=== PATIENT | female | born 1940 | race Caucasian/White ===

== ENCOUNTER 2023-01-11 13:22 | Inpatient (IN) | payer OTHER, MEDICARE ==
--- OUTSIDE RECORDS SUMMARY | 2023-01-11 13:25 | XMS REPORT | Continuity of Care Document ---
:1940 [facility] t Address [address] [facility] [place] [address] Care Team Providers Name Role Phone Shayan Ruelas MD Primary Care Physician [phone] Seamus Devi MD Attending Clinician Provider, Unknown Attending Clinician Unavailable Emily Crowell MA Attending Clinician Unavailable MD SEAMUS DEVI Attending Clinician Unavailable SEAMUS DEVI Admitting Clinician Unavailable MD SEAMUS DEVI Admitting Clinician Unavailable Payers Payer Name Policy Type Policy Number Effective Date Expiration Date S ource Problems Condition Condition Condition Status Onset Resolution Last Treating Co mments Source Name Details Category Date Date Treatment Clinician Date Chest pain Chest pain Disease Active 2021-07 M ethodi 0-26 [facility] 00:00: Hospita 00 l 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 00:00: Hospita due to due to 00 l lipid rich lipid rich plaque plaque Coronary Coronary Disease Active Metho di artery artery 6-15 st disease disease 00:00: Hospita involving involving 00 l nikolai nikolai coronary coronary artery of artery of nikolai nikolai heart heart without without angina angina pectoris pectoris Carotid Carotid Disease Active Methodi artery artery 4-27 st disease disease 00:00: Hospita 00 l Essential Essential Disease Active Met hodi hypertensi hypertensi 4-27 st on on 00:00: Hospita 00 l SOB SOB Disease Active Methodi (shortness (shortness 4-27 st of breath) of breath) 00:00: Ho spita 00 l 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 00:00: Ho spita 00 l Allergies, Adverse Reactions, Alerts Allergy Allergy Status Severity Reaction(s) Onset Inactive Treating Comm ents Source Name Type Date Date Clinician Iodinate Propensi Active Palpitations Methodi d ty to 04-01 st Contrast adverse 00:00: Hospita Media reaction 00 l s to drug Shellfis Propensi Active Palpitations Methodi h ty to 12-05 st Derived adverse 00:00: Hospita reaction 00 l s to drug Iodine Propensi Active Palpitations Me thodi ty to 03-31 st adverse 00:00: Hospita reaction 00 l s to drug Valsarta Propensi Active Anaphylaxis M ethodi n ty to 03-31 adverse 00:00: Hospita reaction 00 l s to drug Family History Family Member Diagnosis Comments Start Date Stop Date Source Natural mother Colon cancer [facility] Natural mother Hyperlipidemia [facility] Natural mother Hypertension [facility] Natural sister Hyperlipidemia [facility] Social History Social Habit Start Date Stop Date Quantity Comments Source [facility] Sexual orientation [facility] Alcohol intake 2022-04-30 2022-04-30 Ex-drinker [facility] 00:00:00 00:00:00 (finding) Hospital History of Social 2022-04-30 2022-04-[address] function 00:00:00 00:00:00 Hospital Tobacco use and 2022-03-17 2022-03-17 Smokeless [facility] exposure 00:00:00 00:00:00 tobacco non-user Hospital Sex Assigned At [birth year] [facility] 00:00:00 00:00:00 Hospital Smoking Status Start Date Stop Date Source Never smoked tobacco [facility] Medications Ordered Filled Start Stop Current Ordering Indication Dosage Frequency Signature Comments Components Source Medication Medication Date Date Medication? Clinician (SIG) Name Name omeprazole 2021-07 Yes 40mg QD Take 40 mg M ethodi (PriLOSEC) by mouth st 40 MG 10:15: daily. Hospita capsule 16 l cholecalcif 2021-07 Yes 2000U QD Take 1 Met hodi silvia, capsule st vitamin D3, 10:15: (2,000 Hosp hi 50 mcg 16 Units l (2,000 total) by unit) mouth capsule daily. capsule calcium 2021-07 Yes 1{tbl} QD Take 1 Method i carbonate 0-[address] (CALCIUM 10:15: mouth Hospita 500 ORAL) 16 daily. l brimonidine 2021-07 Yes 1[drp] Q.5D Administer Methodi (ALPHAGAN 0-[address] P) 0.1 % 10:15: both eyes Hosp hi drops 16 2 (two) l times a day. bimatoprost 2021-07 Yes 1[drp] QD Administer Methodi (LUMIGAN) 0-[address] 0.01 % 10:15: both eyes Hospit a ophthalmic 16 nightly. l drops predniSONE 2021-07- No Take 60 mg Methodi (DELTASONE) 0-03 10-28 (3 tabs) st 20 mg 00:00: 04:59 the night Hospit a tablet 00 :00 before the l procedure and 60 mg (3 tabs) the morning of procedure. Please also take Benadryl 25 mg one tab and Pepcid 40 mg one Tab (over the counter) The night before the procedure and morning of the procedure. aspirin 2021- No 81mg QD Take 1 Methodi (ECOTRIN) 04-03 09-30 tablet (81 st 81 MG 09:47: 00:00 mg total) Hospit a enteric 32 :00 by mouth l coated daily. tablet rosuvastati 2021- No 20mg QD Take 1 Met hodi n (CRESTOR) - 12-30 tablet (20 s t 20 mg 00:00: 05:59 mg total) Hospit a tablet 00 :00 by mouth l every evening for 90 days. clopidogreL 2021- No 75mg QD Take 1 Met hodi (PLAVIX) 75 9-30 12-30 tablet (75 s t mg tablet 00:00: 05:59 mg total) Ho spita 00 :00 by mouth l daily for 90 days. aspirin 2021- No 81mg QD Take 1 Methodi (ECOTRIN) 9- 10-31 tablet (81 st 81 MG 00:00: 04:59 mg total) Hospit a enteric 00 :00 by mouth l coated daily for tablet 30 days. clopidogreL 75mg QD Take 1 Met hodi (PLAVIX) 75 04-03 tablet (75 s t mg tablet 00:00: 00:00 mg total) Ho spita 00 :00 by mouth l daily for 90 days. predniSONE 2021- No Take 60mg M ethodi (DELTASONE) 03-19 (3tabs) st 20 mg 00:00: 00:00 the night Hospit a tablet 00 :00 before the l procedure and 60mg (3tabs) the morning of procedure. Please take Benadryl 25 mg and Pepcid 40 mg ( Over the Counter) the night before the procedure and tne morning of procedure. clopidogreL No 75mg QD Take 1 Met hodi (PLAVIX) 75 03-17 tablet (75 s t mg tablet 00:00: 00:00 mg total) Ho spita 00 :00 by mouth l daily. lisinopriL Yes 20mg QD Take 20 mg M ethodi (PRINIVIL) 03-[address] 20 mg 00:00: every Hospita tablet 00 morning. l gabapentin Yes 900mg QD Take 3 Meth cullen (NEURONTIN) 3-[address] 300 mg 00:00: (900 mg Hospita capsule 00 total) by l mouth nightly. Symbicort Yes 2{puff} Inhale 2 M ethodi 160-4.5 3-[address] mcg/actuati 00:00: needed. Hos torrie on inhaler 00 l rosuvastati 5mg QD Take 5 mg Methodi n (CRESTOR) 09-[address] 5 mg tablet 00:00: 00:00 every Hosp hi 00 :00 evening. l Immunizations Ordered Immunization Filled Immunization Date Status Commen ts Source Name Name Equals6 COVID-19 MRNA 2020-09-04 Completed Meth odist VACCINATION 00:00:00 [facility] PFIZER COVID-19 MRNA 2020-08-14 Completed Meth odist VACCINATION 00:00:00 Hospital Vital Signs Vital Name Observation Time Observation Value Comments Source Systolic blood 2022-04-30 12:49:04 93 mm[Hg] Method ist Hospital pressure Diastolic blood 2022-04-30 12:49:04 59 mm[Hg] [facility] pressure Heart rate 2022-04-30 12:49:04 71 /min [facility] Body temperature 2022-04-30 12:49:[address] [facility] Respiratory rate 2022-04-30 12:49:04 19 /min [facility] Oxygen saturation in 2022-04-30 12:49:04 100 /min [facility] Arterial blood by Pulse oximetry Body weight 2022-04-30 10:16:40 57.97 kg [facility] BMI 2022-04-30 10:16:40 24.96 kg/m2 [facility] Body height 2022-04-29 16:30:00 152.4 cm [facility] Procedures Procedure Date / Time Performing Clinician Source Performed ECG PRE/POST OP 2022-04-29 21:54:13 Jin Munoz spital CV PCI STENT 2022-04-29 21:35:01 Seamus Devi spital ACTIVATED CLOTTING TIME 2022-04-29 21:09:00 [facility] CBC WITH PLATELET AND 2022-04-24 14:39:00 [facility] DIFFERENTIAL COMPREHENSIVE METABOLIC 2022-04-24 14:39:00 [facility] PANEL PROTHROMBIN TIME WITH INR 2022-04-24 14:39:00 DeviSeamus [facility] ECG 12-LEAD 2022-04-03 10:35:46 Seamus Devi spital CREATININE LEVEL 2022-04-02 20:30:00 [facility] ESTIMATED GFR 2022-04-02 20:30:00 Seamus Devi spital ECG PRE/POST OP 2022-04-02 15:34:04 [facility] CV PCI STENT 2022-04-02 15:28:06 Seamus Devi spital ACTIVATED CLOTTING TIME 2022-04-02 14:37:00 [facility] CBC WITH PLATELET AND 2022-03-30 14:34:00 [facility] DIFFERENTIAL COMPREHENSIVE METABOLIC 2022-03-30 14:34:[address] [facility] PANEL PT AND PTT 2022-03-30 14:34:00 Seamus Devi spital ECG 12-LEAD 2022-03-17 14:53:10 Seamus Devi spital Plan of Care Planned Activity Planned Date Details Comments Source Future Scheduled 2023-01-11 65+ [facility]04 VACCINE (1 - PCV) [code = 65+ PNEUMOCOCCAL VACCINE (1 - PCV)] Future Scheduled 2023-01-11 SHINGLES VACCINES (1 Met [facility] Test 09:52:04 of 2) [code = SHINGLES VACCINES (1 of 2)] Future Scheduled 2023-01-11 COVID-19 VACCINE (5 - [facility] Test 09:52:04 Pfizer series) [code = COVID-19 VACCINE (5 - Pfizer series)] Future Scheduled 2023-01-11 INFLUENZA VACCINE Method [facility] Test 09:52:04 [code = INFLUENZA VACCINE] Encounters Start End Encounter Admission Attending Care Care Encounter Source Date/Time Date/Time Type Type Clinicians Facility Department ID 2022-07-31 Outpatient [facility] [id number] Common 09:37:02 [id number] [facility] 2022-01-13 Outpatient [facility] [id number] Common 10:02:04 [facility] 2021-12-23 Outpatient [facility] [id number] Common 12:57:01 [facility] 2021-12-15 Outpatient [facility] [id number] Common 08:14:01 [facility] 2021-10-24 Outpatient [facility] [id number] Common 08:34:02 [facility] 2021-07-30 Outpatient [facility] [id number] Common 14:31:45 [facility] 2023-01-11 2023-01-11 Telephone Cass Devi.2.840.1 [id number] Methodi 00:00:00 00:00:[address] 3.430.2.7 Hospit a .3.753214 l .8 2022-12-07 2022-12-07 Telephone Edvi, 1.2.840.1 [id number] Methodi 00:00:00 00:00:[address] 3.430.2.7 Hospit a .3.578462 l .8 2022-04-29 2022-04-30 [facility], 1.2.840.1 [id number] Methodi 11:21:00 10:15:00 [facility] Seamus R. 09638.1.[address] 3.430.2.7 Hospit a .3.500188 l .8 2022-04-29 2022-04-30 Outpatient [facility] [id number] [place] 00:00:00 00:00:00 SEAMUS [address] 2022-04-29 2022-04-29 Surgery [facility], 1.2.840.1 [id number] Methodi 14:05:00 15:50:00 [address] 3.430.2.7 Hospit a .3.372270 l .8 2022-04-29 2022-04-29 Travel 1.2.840.1 1.2.033.450 [id number] Methodi 00:00:00 00:00:[address] 3.430.2.7 0.2.7.3.698 Ho spita .3.608579 084.8 l .8 2022-04-28 2022-04-28 Documentat Provider, 1.2.840.1 [id number] Methodi 00:00:00 00:00:00 ion Unknown 32184.1.[address] 3.430.2.7 Hospit a .3.300451 l .8 2022-04-28 2022-04-28 Travel 1.2.840.1 1.2.079.204 [id number] Methodi 00:00:00 00:00:[address] 3.430.2.7 0.2.7.3.698 Ho spita .3.687303 084.8 l .8 2022-04-06 2022-04-06 Orders [facility], 1.2.840.1 [id number] Methodi 00:00:00 00:00:00 Only Emily 65748.1.[address] 3.430.2.7 Hospit a .3.735192 l .8 2022-04-02 2022-04-03 [facility], 1.2.840.1 [id number] Methodi 07:25:00 09:47:00 Encounter Seamus Boyd [address]42.1.[address] 3.430.2.7 Hospit a .3.933812 l .8 2022-04-02 2022-04-03 [place] [id number] [place] [address] 00:00:00 00:00:00 SEAMUS [address] 2022-04-02 2022-04-02 Surgery [facility], 1.2.840.1 [id number] Methodi 09:10:00 10:55:00 Seamus Boyd [address]65.1.[address] 3.430.2.7 Hospit a .3.020557 l .8 2022-04-02 2022-04-02 Travel 1.2.840.1 1.2.706.685 0419 [id number] Methodi 00:00:00 00:00:[address] 3.430.2.7 0.2.7.3.698 Ho spita .3.911180 084.8 l .8 2022-04-01 2022-04-01 Documentat [facility], 1.2.840.1 [id number] Methodi 00:00:00 00:00:00 ion Unknown 44097.1.[address] 3.430.2.7 Hospit a .3.646517 l .8 2022-03-31 2022-03-31 Travel 1.2.840.1 1.2.340.272 [id number] [id number] Methodi 00:00:00 00:00:[address] 3.430.2.7 0.2.7.3.698 Ho spita .3.107215 084.8 l .8 2022-03-30 2022-03-30 Orders Devi, 1.2.840.1 [id number] 8070 Methodi 00:00:00 00:00:00 Only Seamus Boyd 55726.1.[address] 3.430.2.7 Hospit a .3.467412 l .8 2022-03-19 2022-03-19 Orders [facility], 1.2.840.1 [id number] [id number] Methodi 00:00:00 00:00:00 Only Emily 33682.1.[address] 3.430.2.7 Hospit a .3.120798 l .8 2022-03-17 2022-03-17 Office Devi, 1.2.840.1 [id number] Methodi 10:10:00 10:20:00 Visit Seamus Boyd 64341.1.[address] 3.430.2.7 Hospit a .3.199462 l .8 2022-03-17 2022-03-17 Outpatient [facility] [id number] [place] 00:00:00 00:00:00 SEAMUS [address] 2022-03-17 2022-03-17 Travel 1.2.840.1 1.2.065.485 [id number] Methodi 00:00:00 00:00:[address] 3.430.2.7 0.2.7.3.698 Ho spita .3.453859 084.8 l .8 2021-04-29 2021-04-29 Outpatient [facility] [id number] [place] 00:00:00 00:00:00 SEAMUS [address] 2020-12-17 2020-12-17 Outpatient [facility] [id number] [place] 00:00:00 00:00:00 SEAMUS [address] 2020-12-04 2020-12-06 Inpatient MARITO, [facility] [id number] [place] 00:00:00 00:00:00 SEAMUS [address] 2020-11-29 2020-11-29 Outpatient MARITO, [facility] [id number] [place] 00:00:00 00:00:00 SEAMUS [address] 2020-11-29 2020-11-29 Outpatient MARITO, [facility] [id number] [place] 00:00:00 00:00:00 SEAMUS [address] 2020-11-19 2020-11-19 Outpatient MARITO, [facility] [id number] [place] 00:00:00 00:00:00 SEAMUS [address] 2020-10-30 2020-10-30 Outpatient [facility] [id number] [place] 00:00:00 00:00:[address] 2020-10-29 2020-10-29 Outpatient MARITO, [facility] [id number] [place] 00:00:00 00:00:00 SEAMUS [address] Results Test Description Test Time Test Comments Results Result Comments Source ECG Pre/Post Op (in AM) 2022-04-30 02:32:53 Test Item Value Reference Range Interpretation Comme nts Ventricular rate (test code = 253) 81 Atrial rate (test code = 255) 81 MA interval (test code = 266) 160 QRSD interval (test code = 260) 90 QT interval (test code = 264) 388 QTC interval (test code = 265) 450 P axis 1 (test code = 267) 79 QRS axis 1 (test code = 268) 42 T wave axis (test code = 270) 31 EKG impression (test code = 273) Normal sinus rhythm-Normal ECG-In automated comparison with ECG of 03-APR-2022 05:35,-Vent. rate has increased BY 27 BPM-Nonspecific T wave abnormality now evident in Inferior leads- [facility] [id number] 21:14:00 Test Item Value Reference Range Interpretation Comments Activated clotting time 371 See_Comment H Oper ator Name: (test code = 5298) Traci Romero ID: [id number] [Automated mess age] The system [employer] generated this result transmitted ref erence range: 96 - 152 sec. The reference r ann-marie was not used to interpret this result as normal/abnor mal. Lab Interpretation (test Abnormal code = 74147-2) [facility] [id number] 11:09:00 Test Item Value Reference Range Interpretation Comments Glucose (test code = 120 mg/dL 70-99 H 2345-7) BUN (test code = 8 mg/dL 8-27 3094-0) Creatinine (test code 0.86 mg/dL 0.57-1.00 = 2160-0) eGFR (test code = 68 mL/min/1.73 >=59 8257) BUN/creatinine ratio 9 12-28 L (test code = 3097-3) Sodium (test code = 133 mmol/L 134-144 L 2951-2) Potassium (test code 4.1 mmol/L 3.5-5.2 = 2823-3) Chloride (test code = 95 mmol/L 96-106 L 2075-0) CO2 (test code = 24 mmol/L 20-29 8-9) Calcium (test code = 9.1 mg/dL 8.7-10.3 05998-0) Protein (test code = 6.5 g/dL 6.0-8.5 2885-2) Albumin, S (test code 4.5 g/dL 3.7-4.7 = 1751-7) Globulin, total (test 2.0 g/dL 1.5-4.5 code = 14890-8) Albumin/globulin 2.3 1.2-2.2 H ratio (test code = 1759-0) Total bilirubin (test 0.3 mg/dL 0.0-1.2 code = 1975-2) Alkaline phosphatase 75 See_Comment [Autom ated (test code = 6768-6) message ] The system which generated this result transmitted reference range : 44 - 121 IU/L. The reference range was not used to interpr et this result as normal/abnormal . AST (test code = 15 See_Comment [Automated 1920-8) message] The system which generated this result transmitted reference range : 0 - 40 IU/L. Th e reference range was not used to interpret this result as normal/abnormal . ALT (test code = 10 See_Comment [Automated 1742-6) message] The system which generated this result transmitted reference range : 0 - 32 IU/L. Th e reference range was not used to interpret this result as normal/abnormal . MARINO (test code = MARINO) Performed at: [address] [place] [id number] Director: Reji Hung MD, Phone: [phone] Lab Interpretation Abnormal (test code = 30747-2) [facility] with platelet and [id number] 11:09:00 Test Item Value Reference Range Interpretation Comments WBC (test code = 5.8 See_Comment [Automated 9290-2) message] The system which generated this result transmitted reference range : 3.4 - 10.8 x10E3/uL. The reference range was not used to interpret this result as normal/abnormal . RBC (test code = 3.29 See_Comment L [Automated 789-8) message] The system which generated this result transmitted reference range : 3.77 - 5.28 x10E6/uL. The reference range was not used to interpret this result as normal/abnormal . HGB (test code = 9.7 g/dL 11.1-15.9 L 718-7) HCT (test code = 29.4 % 34.0-46.6 L 4544-3) MCV (test code = 89 fL 79-97 787-2) MCH (test code = 29.5 pg 26.6-33.0 785-6) MCHC (test code = 33.0 g/dL 31.5-35.7 786-4) RDW (test code = 13.5 % 11.7-15.4 788-0) Platelet count (test 393 See_Comment [Autom ated code = 777-3) message] The system which generated this result transmitted reference range : 150 - 450 x10E3/uL. The reference range was not used to interpret this result as normal/abnormal . Neutrophils (test 58 % Not Estab. code = 770-8) Lymphocytes (test 27 % Not Estab. code = 736-9) Monocytes (test code 10 % Not Estab. = 5905-5) Eosinophils (test 4 % Not Estab. code = 713-8) Basophils (test code 1 % Not Estab. = 706-2) Neutrophils, absolute 3.4 See_Comment [Auto mated (test code = 751-8) message] The system which generated this result transmitted reference range : 1.4 - 7.0 x10E3/uL. The reference range was not used to interpret this result as normal/abnormal . Lymphocytes, absolute 1.5 See_Comment [Auto mated (test code = 731-0) message] The system which generated this result transmitted reference range : 0.7 - 3.1 x10E3/uL. The reference range was not used to interpret this result as normal/abnormal . Monocytes, absolute 0.6 See_Comment [Automa katerin (test code = 742-7) message] The system which generated this result transmitted reference range : 0.1 - 0.9 x10E3/uL. The reference range was not used to interpret this result as normal/abnormal . Eosinophils, absolute 0.2 See_Comment [Auto mated (test code = 711-2) message] The system which generated this result transmitted reference range : 0.0 - 0.4 x10E3/uL. The reference range was not used to interpret this result as normal/abnormal . Basophils, absolute 0.0 See_Comment [Automa katerin (test code = 704-7) message] The system which generated this result transmitted reference range : 0.0 - 0.2 x10E3/uL. The reference range was not used to interpret this result as normal/abnormal . Immature granulocytes 0 % Not Estab. (test code = 48005-4) Immature 0.0 See_Comment [Automated granulocytes, message] The absolute (test code = system which 93222-9) generated this result transmitted reference range : 0.0 - 0.1 x10E3/uL. The reference range was not used to interpret this result as normal/abnormal . MARINO (test code = MARINO) Performed at: [facility] [place], [place] [id number] Director: Reji Hung MD, Phone: [phone] Lab Interpretation Abnormal (test code = 46516-6) [facility] with [id number] 11:09:00 Test Item Value Reference Range Interpretation Comments INR (test code = 1.0 0.9-1.2 Reference i nterval 6301-6) is for non-anticoagula katerin patients.Sugges katerin INR therapeutic range for Vitam in [facility] therapy: Standa rd Dose (moderate intensity therapeutic range): 2.0 - 3 .0 Higher intensit y therapeutic ran ge 2.5 - 3.5 Prothrombin time 10.7 See_Comment [Automated (test code = message] The 5902-2LynxFit for [employer] system which generated this result transmit katerin reference range : 9.1 - 12.0 sec. The reference range was not u sed to interpret th is result as normal/abnormal . MARINO (test code = Performed at: 01 MARINO) - LabCo[address] [id number] Director: Reji Hung MD, Phone: [phone] [facility] 12 [id number] 23:36:40 Test Item Value Reference Range Interpretation Comments Ventricular rate (test 54 code = 253) Atrial rate (test code 54 = 255) MA interval (test code 124 = 266) QRSD interval (test 92 code = 260) QT interval (test code 440 = 264) QTC interval (test code 417 = 265) P axis 1 (test code = 108 267) QRS axis 1 (test code = 64 268) T wave axis (test code 70 = 270) EKG impression (test Sinus code = 273) bradycardia-Otherwise normal ECG-In automated comparison with ECG of 02-APR-2022 10:34,-No significant change was found- [facility] and [id number] 14:51:00 Test Item Value Reference Range Interpretation Comments INR (test code = 1.0 0.9-1.2 Reference i nterval 6301-6) is for non-anticoagula katerin patients.Sugges katerin INR [facility]: Standard Dose (moderate inten sity therapeutic ran ge): 2.0 - 3.0 Highe r intensity therapeutic ran ge 2.5 - 3.5 Prothrombin time 10.3 See_Comment [Automated message] (test code = The system [employer] h 5902-2) generated this result transmit katerin reference range : 9.1 - 12.0 sec. The reference range was not used to interpret this result as normal/abnormal . aPTT (test code = 28 See_Comment This test has not 47165-9) been validated for monitoring unfractionated heparintherapy. aPTT-based therapeutic ran ges for unfractiona katerin heparintherapy have not been established. Fo r general guideli doc onHeparin monitoring, ref er to the [facility] Directory of Services. [Auto mated message] The sy stem which generated this result transmit katerin reference range : 24 - 33 sec. The reference range was not used to interpret this result as normal/abnormal . MARINO (test code = Performed at: 01 MARINO) - [address] [id number] Director: Reji Hung MD, Phone: [phone] [facility]mouthHdyhvaidUSYD-NfE-6 (COVID-19) RNA [Presence] in Respiratory specimen by AVRIL with probe [id number] 18:31:47 Test Item Value Reference Range Interpretation Comments SARS-CoV-2 (COVID-19) RNA Not detected Not-Detected [Presence] in Respiratory specimen by AVRIL with probe detection (test code = 69802-3) Whether patient is employed in a healthcare setting (test code = 92241-6) Whether the patient has symptoms related to condition of interest (test code = 77993-9) Patient was hospitalized because of this condition (test code = 88577-7) Whether the patient was admitted to intensive care unit (ICU) for condition of interest (test code = 79542-2) Whether patient resides in a congregate care setting (test code = 52194-1) [facility]
[2023-01-11] MEDS ORDERED: MAGNESIUM SULFATE 1 gm IVPB 1 GM/100 ML BAG IV ONE (14:00)
[2023-01-11] MEDS ORDERED: NA CHLORIDE 0.9% 500 ML ONE (14:00)
[2023-01-11] MEDS ORDERED: dilTIAZem HCL 25 MG/5 ML VIAL IV ONE (14:18)
[2023-01-11 14:25] LABS: Absolute Lymphocytes (CBC) 1.7 K/uL (0.7-4.9); Hematocrit 33.4 % (36.0-45.0); Lymphocytes % 24.5 % (15.3-44.8); MCV 89.9 fL (80-100); MPV 8.9 fL (7.6-11.3); Protime INR 0.96; RBC Red Blood Cell Count 3.71 M/uL (3.86-4.86)
[2023-01-11 14:41] LABS: Troponin High Sensitivity 182.7 pg/mL (<58.9)
--- NOTE | 2023-01-11 14:47 | RAD REPORT ---
EXAM DESCRIPTION: RAD - Chest Single View - 01/11/2023 2:31 pm CLINICAL HISTORY: PALPITATIONS COMPARISON: No comparisons FINDINGS: Lines: None. Lungs: No evidence of edema or pneumonia. Pleural: No significant pleural effusions or pneumothorax. Cardiac: The heart size is within normal limits. Mediastinum: Within normal limits. Bones: No acute fractures. Other: None IMPRESSION: No acute cardiopulmonary disease.
--- NOTE | 2023-01-11 15:37 | EDPHYS ---
Physician Documentation [facility] Name: Patricia Tucker Age: 82 yrs Sex: Female : 1940 Arrival Date: 01/11/2023 Time: 13:22 Bed 2 Private MD: ED Physician Chucky Sofia HPI: 01/11 15:30 This 82 yrs old Female presents to ER via Ambulatory with complaints of Palpitations, rn High Blood Pressure. 15:30 The patient presents with a history of irregular heart beat, heart racing. Onset: The rn symptoms/episode began/occurred 2 day(s) ago. Duration: The patient or guardian reports a single episode, that is still ongoing. Modifying factors: The symptoms are aggravated by nothing. The symptoms are alleviated by nothing. 15:30 Associated signs and symptoms: Pertinent negatives: chest pain, fever, SOB, syncope, rn vertigo, vomiting. Severity of symptoms: At their worst the symptoms were moderate in the emergency department the symptoms are unchanged. The patient has not experienced similar symptoms in the past. The patient has not recently seen a physician. Sent from cardiac rehab for afib with rvr, HR in 150s. Patient thinks started to feel palpitations 2 days ago. No chest pain or sob. Never had afib before.. Historical: - Allergies: 13:43 Iodine; cm10 13:43 SHELLFISH; cm10 - Home Meds: 13:43 Lisinopril Oral [Active]; aspirin 81 mg Oral capsule [Active]; Plavix 75 mg Oral tablet cm10 [Active]; rosuvastatin oral [Active]; gabapentin oral [Active]; - PMHx: 13:43 Hypertensive disorder; high cholesterol; COPD; cm10 - PSHx: 13:43 cardiac stents X3; cm10 - Immunization history:: Adult Immunizations unknown. - Social history:: Smoking status: Patient denies any tobacco usage or history of. - Family history:: not pertinent. - Hospitalizations: : No recent hospitalization is reported. ROS: 15:30 Constitutional: Negative for fever, chills, and weight loss, Cardiovascular: Negative rn for chest pain, and edema, Respiratory: Negative for shortness of breath, cough, wheezing, and pleuritic chest pain, Abdomen/GI: Negative for abdominal pain, nausea, vomiting, diarrhea, and constipation, MS/Extremity: Negative for injury and deformity, Skin: Negative for injury, rash, and discoloration, Neuro: Negative for headache, weakness, numbness, tingling, and seizure. Exam: 15:30 Constitutional: This is a well developed, well nourished patient who is awake, alert, rn and in no acute distress. Cardiovascular: Tachycardic, irregular. No pulse deficits. Respiratory: No increased work of breathing, no retractions or nasal flaring. Abdomen/GI: soft, non-tender Skin: Warm, dry MS/ Extremity: Pulses equal, no cyanosis. Neuro: Awake and alert, GCS 15 16:20 ECG was reviewed by the Attending Physician. rn Vital Signs: 13:40 BP 121 / 81; Pulse 148; Resp 16; Temp 98.1(TE); Pulse Ox 100% ; cm10 13:47 Weight 56.25 kg; Height 4 ft. 11 in. ; cm10 14:20 BP 124 / 79; Pulse 143; Resp 18 S; Pulse Ox 100% on R/A; aa5 14:25 BP 120 / 60; Pulse 75; Resp 16 S; Pulse Ox 100% on R/A; aa5 14:33 BP 112 / 70; Pulse 73; Resp 17 S; Pulse Ox 100% on R/A; aa5 14:35 BP 112 / 70; Pulse 73; Resp 18; Pulse Ox 100% on R/A; ld1 15:40 BP 115 / 77; Pulse 73; Resp 17 S; Pulse Ox 100% on R/A; aa5 16:16 BP 136 / 75; Pulse 116; Resp 18 S; Pulse Ox 100% on R/A; aa5 16:50 BP 138 / 69; Pulse 140; Resp 18 S; Pulse Ox 100% on R/A; aa5 17:21 BP 120 / 64; Pulse 80; Resp 16; Temp 98(TE); Pulse Ox 100% on R/A; aa5 17:43 BP 122 / 78; Pulse 74; Resp 15 S; Pulse Ox 98% on R/A; aa5 18:56 BP 100 / 77; Pulse 73; Resp 18 S; Pulse Ox 99% on R/A; aa5 19:56 BP 124 / 62; Pulse 73; Resp 17; Temp 98; Pulse Ox 100% on R/A; rv 13:47 Body Mass Index 25.04 (56.25 kg, 149.86 cm) cm10 14:20 HR fluctuating between 99bpm and 143bpm. aa5 [place] Coma Score: 19:56 Eye Response: spontaneous(4). Motor Response: obeys commands(6). Verbal Response: rv oriented(5). Total: 15. MDM: 13:27 Patient medically screened. rn 15:30 Differential diagnosis: arrythmia, dehydration, stress disorder. Data reviewed: vital rn signs, nurses notes, lab test result(s), EKG, radiologic studies, plain films, and as a result, I will discharge patient. Counseling: I had a detailed discussion with the patient and/or guardian regarding: the historical points, exam findings, and any diagnostic results supporting the discharge/admit diagnosis, lab results, radiology results, the need for further work-up and treatment in the hospital. Response to treatment: the patient's symptoms have markedly improved after treatment, and as a result, I will admit patient. 01/11 13:49 Order name: Basic Metabolic Panel; Complete Time: 14:43 rn 01/11 13:49 Order name: CBC with Diff; Complete Time: 14:43 rn 01/11 13:49 Order name: NT PRO-BNP; Complete Time: 14:43 rn 01/11 13:49 Order name: PT-INR; Complete Time: 14:43 rn 01/11 13:49 Order name: Troponin HS; Complete Time: 14:43 rn 01/11 13:49 Order name: XRAY Chest (1 view); Complete Time: 15:12 rn 01/11 13:49 Order name: EKG; Complete Time: 13:50 rn 01/11 13:49 Order name: Cardiac monitoring; Complete Time: 14:14 rn 01/11 13:49 Order name: EKG - Nurse/Tech; Complete Time: 14:14 rn 01/11 13:49 Order name: IV Saline Lock; Complete Time: 14:20 rn 01/11 13:49 Order name: Labs collected and sent; Complete Time: 14:20 rn 01/11 13:49 Order name: O2 Per Protocol; Complete Time: 14:14 01/11 13:49 Order name: O2 Sat Monitoring; Complete Time: 14:14 rn EC:20 Rate is 131 beats/min. Rhythm is irregularly irregular. QRS Harris is Normal. QRS rn interval is normal. No Q waves. T waves are Normal. No ST changes noted. Clinical impression: Atrial Fibrillation. Interpreted by me. Reviewed by me. Administered Medications: 14:00 Drug: NS 0.9% IV 500 ml Route: IV; Rate: bolus; Site: right antecubital; aa5 15:00 Follow up: IV Status: Completed infusion; IV Intake: 500ml aa5 14:00 Drug: Magnesium Sulfate IVPB 1 grams Route: IVPB; Infused Over: 1 hrs; Site: right aa5 antecubital; 14:34 Follow up: Response: No adverse reaction aa5 15:00 Follow up: IV Status: Completed infusion aa5 14:21 Drug: Diltiazem IVP 14 mg Route: IVP; Site: right antecubital; aa5 14:34 Follow up: Response: No adverse reaction; Marked relief of symptoms aa5 14:22 CANCELLED (Physician Discretion): Diltiazem IVP 15 mg IVP once; Over 2 minutes aa5 15:54 Drug: Aspirin PO 325 mg Route: PO; aa5 17:21 Follow up: Response: No adverse reaction aa5 16:35 Drug: Diltiazem PO 30 mg Route: PO; aa5 17:21 Follow up: Response: Marked relief of symptoms aa5 Disposition Summary: 01/11/23 15:37 Hospitalization Ordered Hospitalization Status: Inpatient Admission rn Provider: Charity Dowd rn Location: Telemetry/[facility] (Inpatient) rn Condition: Stable rn Problem: new rn Symptoms: have improved rn Bed/Room Type: Standard rn Room Assignment: 421(01/11/23 18:42) em1 Diagnosis - Persistent atrial fibrillation - with RVR rn Forms: - Medication Reconciliation Form rn - 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 Total time: 40 rn minutes Signatures: Dispatcher [employer] EDChucky Molina MD MD rn Martinez, Eric em1 Arabella Villa RN RN aa5 Alethea Beltran RN RN cm10 Corrections: (The following items were deleted from the chart) 14:22 13:54 Diltiazem IVP 15 mg IVP once; Over 2 minutes ordered. rn aa5 18:42 15:37 rn em1
--- NOTE | 2023-01-11 15:37 | ER ---
Nurse's Notes [facility] Name: Patricia Tucker Age: 82 yrs Sex: Female : 1940 Arrival Date: 01/11/2023 Time: 13:22 Bed 2 Private MD: Diagnosis: Persistent atrial fibrillation-with RVR Presentation: 01/11 13:40 Chief complaint: Patient states: that she was sent by cardiac rehab for palpitations cm10 and elevated heart rate. Per cardiac rehab, pt has in a-fib RVR with no history of afib. Pt denies chest pain but reports some dizziness. Coronavirus screen: Client denies travel out of the [place] in the last 14 days. Ebola Screen: Patient denies travel to an Ebola-affected area in the 21 days before illness onset. No symptoms or risks identified at this time. 13:40 Method Of Arrival: Ambulatory cm10 13:47 Initial Sepsis Screen: Does the patient meet any 2 criteria? No. Patient's initial cm10 sepsis screen is negative. Does the patient have a suspected source of infection? No. Patient's initial sepsis screen is negative. Risk Assessment: Do you want to hurt yourself or someone else? Patient reports no desire to harm self or others. Onset of symptoms was January 11, 2023. 13:47 Acuity: JOSE 2 cm10 Triage Assessment: 13:48 General: Appears in no apparent distress. comfortable, Behavior is calm, cooperative. cm10 Pain: Denies pain. Historical: - Allergies: 13:43 Iodine; cm10 13:43 SHELLFISH; cm10 - Home Meds: 13:43 Lisinopril Oral [Active]; aspirin 81 mg Oral capsule [Active]; Plavix 75 mg Oral tablet cm10 [Active]; rosuvastatin oral [Active]; gabapentin oral [Active]; - PMHx: 13:43 Hypertensive disorder; high cholesterol; COPD; cm10 - PSHx: 13:43 cardiac stents X3; cm10 - Immunization history:: Adult Immunizations unknown. - Social history:: Smoking status: Patient denies any tobacco usage or history of. - Family history:: not pertinent. - Hospitalizations: : No recent hospitalization is reported. Screenin:00 [facility] ED Fall Risk Assessment (Adult) History of falling in the last 3 months, aa5 including since admission No falls in past 3 months (0 pts) Confusion or Disorientation No (0 pts) Intoxicated or Sedated No (0 pts) Impaired Gait No (0 pts) Mobility Assist Device Used No (0 pt) Altered Elimination No (0 pt) Score/Fall Risk Level 0 - 2 = Low Risk Oriented to surroundings, Maintained a safe environment, Educated pt \\T\\ family on fall prevention, incl call for assistance when getting out of bed. Abuse screen: Denies threats or abuse. Nutritional screening: No deficits noted. Tuberculosis screening: No symptoms or risk factors identified. Assessment: 13:50 General: Appears comfortable, Behavior is calm, cooperative. Pain: Denies pain. Neuro: aa5 Level of Consciousness is awake, alert, obeys commands, Oriented to person, place, time, situation. Cardiovascular: Reports palpitations, Denies chest pain, Heart tones S1 S2 present Rhythm is atrial fibrillation with rapid ventricular response. Respiratory: Airway is patent Respiratory effort is even, unlabored, Respiratory pattern is regular, symmetrical. GI: Abdomen is flat, non-distended, Bowel sounds present X 4 quads. Abd is soft and non tender X 4 quads. Patient currently denies nausea, vomiting. : No signs and/or symptoms were reported regarding the genitourinary system. EENT: No signs and/or symptoms were reported regarding the EENT system. Derm: Skin is pink, warm \\T\\ dry. Musculoskeletal: Range of motion: intact in all extremities. 13:50 Reassessment: Pt states "I recently lost my son and I also have a disabled son so I aa5 have been under stress lately" . 14:25 Reassessment: Patient is alert, oriented x 3, equal unlabored respirations, skin aa5 warm/dry/pink. Cardiovascular: Rhythm is HR 75 and regular. 14:35 Reassessment: Patient is alert, oriented x 3, equal unlabored respirations, skin aa5 warm/dry/pink. Cardiovascular: Rhythm is regular. 15:40 Reassessment: Patient is alert, oriented x 3, equal unlabored respirations, skin aa5 warm/dry/pink. 15:40 Cardiovascular: Rhythm is regular. aa5 16:16 Reassessment: Patient is alert, oriented x 3, equal unlabored respirations, skin aa5 warm/dry/pink. Cardiovascular: Rhythm is atrial fibrillation with rapid ventricular response. 16:21 Reassessment: Awaiting diltiazem PO from pharmacy, spoke to jerrell Duran. . aa5 16:50 Reassessment: Patient is alert, oriented x 3, equal unlabored respirations, skin aa5 warm/dry/pink. Cardiovascular: Rhythm is atrial fibrillation with rapid ventricular response. 17:09 Reassessment: Pt assisted to restroom via wheelchair, pt voided. Pt placed back in bed. aa5 . 17:21 Reassessment: Patient is alert, oriented x 3, equal unlabored respirations, skin aa5 warm/dry/pink. 17:21 Cardiovascular: Rhythm is atrial fibrillation. aa5 17:44 Reassessment: Patient is alert, oriented x 3, equal unlabored respirations, skin aa5 warm/dry/pink. 17:44 Reassessment: Awaiting room assignment. . aa5 18:56 Reassessment: Patient is alert, oriented x 3, equal unlabored respirations, skin aa5 warm/dry/pink. Vital Signs: 13:40 BP 121 / 81; Pulse 148; Resp 16; Temp 98.1(TE); Pulse Ox 100% ; cm10 13:47 Weight 56.25 kg; Height 4 ft. 11 in. ; cm10 14:20 BP 124 / 79; Pulse 143; Resp 18 S; Pulse Ox 100% on R/A; aa5 14:25 BP 120 / 60; Pulse 75; Resp 16 S; Pulse Ox 100% on R/A; aa5 14:33 BP 112 / 70; Pulse 73; Resp 17 S; Pulse Ox 100% on R/A; aa5 14:35 BP 112 / 70; Pulse 73; Resp 18; Pulse Ox 100% on R/A; ld1 15:40 BP 115 / 77; Pulse 73; Resp 17 S; Pulse Ox 100% on R/A; aa5 16:16 BP 136 / 75; Pulse 116; Resp 18 S; Pulse Ox 100% on R/A; aa5 16:50 BP 138 / 69; Pulse 140; Resp 18 S; Pulse Ox 100% on R/A; aa5 17:21 BP 120 / 64; Pulse 80; Resp 16; Temp 98(TE); Pulse Ox 100% on R/A; aa5 17:43 BP 122 / 78; Pulse 74; Resp 15 S; Pulse Ox 98% on R/A; aa5 18:56 BP 100 / 77; Pulse 73; Resp 18 S; Pulse Ox 99% on R/A; aa5 19:56 BP 124 / 62; Pulse 73; Resp 17; Temp 98; Pulse Ox 100% on R/A; rv 13:47 Body Mass Index 25.04 (56.25 kg, 149.86 cm) cm10 14:20 HR fluctuating between 99bpm and 143bpm. aa5 [place] Coma Score: 19:56 Eye Response: spontaneous(4). Motor Response: obeys commands(6). Verbal Response: rv oriented(5). Total: 15. ED Course: 13:24 Patient arrived in ED. mr 13:27 Chucky Sofia MD is Attending Physician. rn 13:48 Triage completed. cm10 13:48 Arm band placed on Patient placed in an exam room, on a stretcher. cm10 13:49 Arabella Villa RN is Primary Nurse. aa5 13:50 Patient has correct armband on for positive identification. Placed in gown. Bed in low aa5 position. Call light in reach. Side rails up X2. 13:58 Initial lab(s) drawn, by me, sent to lab. Inserted saline lock: 20 gauge in right aa5 antecubital area, using aseptic technique. Blood collected. 14:32 XRAY Chest (1 view) In Process Unspecified. EDMS 15:36 Charity Dowd MD is Hospitalizing Provider. rn 19:05 Report given to ARSEN Lopez and ARSEN Durán. aa5 19:56 No provider procedures requiring assistance completed. Patient admitted, IV remains in rv place. 19:57 Provided Education on: diltiazem, irregular HR. rv Administered Medications: 14:00 Drug: NS 0.9% IV 500 ml Route: IV; Rate: bolus; Site: right antecubital; aa5 15:00 Follow up: IV Status: Completed infusion; IV Intake: 500ml aa5 14:00 Drug: Magnesium Sulfate IVPB 1 grams Route: IVPB; Infused Over: 1 hrs; Site: right aa5 antecubital; 14:34 Follow up: Response: No adverse reaction aa5 15:00 Follow up: IV Status: Completed infusion aa5 14:21 Drug: Diltiazem IVP 14 mg Route: IVP; Site: right antecubital; aa5 14:34 Follow up: Response: No adverse reaction; Marked relief of symptoms aa5 14:22 CANCELLED (Physician Discretion): Diltiazem IVP 15 mg IVP once; Over 2 minutes aa5 15:54 Drug: Aspirin PO 325 mg Route: PO; aa5 17:21 Follow up: Response: No adverse reaction aa5 16:35 Drug: Diltiazem PO 30 mg Route: PO; aa5 17:21 Follow up: Response: Marked relief of symptoms aa5 Medication: 19:57 VIS not applicable for this client. rv Intake: 15:00 IV: 500ml; Total: 500ml. aa5 Outcome: 15:37 Decision to Hospitalize by Provider. rn 19:57 Condition: stable as6 19:57 Admitted to Tele accompanied by nurse, via wheelchair, room 421, with chart, Report rv called to TWAN LEGER 19:57 Condition: improved 19:57 Instructed on the need for admit. 19:57 Patient left the ED. rv Signatures: Dispatcher [employer] [facility] MorrisKamryn Roman, MD MD rn Arabella Villa RN RN aa5 Luis Armando Richardson RN RN rv Qing Carter RN RN ld1 John Brady RN RN as6 Alethea Beltran, RN RN cm10 Corrections: (The following items were deleted from the chart) 14:31 14:20 BP 124 / 79; Pulse 143bpm; Resp 18bpm; Spontaneous; Pulse Ox 100% RA; aa5 aa5 17:12 16:20 BP 136 / 75; Pulse 116bpm; Resp 18bpm; Spontaneous; Pulse Ox 100% RA; aa5 aa5 17:44 17:21 Pulse 80bpm; Resp 16bpm; Pulse Ox 100% RA; Temp 98F Temporal; aa5 aa5
[2023-01-11] MEDS ORDERED: ASPIRIN 325 MG TAB ONE (15:56)
[2023-01-11] MEDS ORDERED: DILTIAZEM HCL 60 MG TAB PO SCH (17:00)
[2023-01-11] MEDS ORDERED: ACETAMINOPHEN 500 MG TAB PO PRN (19:56)
[2023-01-11] MEDS ORDERED: ONDANSETRON 4 MG/2 ML VIAL IV PRN (19:56)
[2023-01-11] MEDS ORDERED: ENOXAPARIN 40 MG/0.4 ML SQ SCH (21:00)
[2023-01-11 21:55] VITALS: BMI 24.5
[2023-01-11] MEDS: GABAPENTIN 300 MG CAP PO SCH (22:09)
[2023-01-11] MEDS: ROSUVASTATIN 10 MG TAB PO SCH (22:09)
--- NOTE | 2023-01-12 02:07 | HP ---
Date of Admission: 01/11/2023 Chief Complaint: Rapid heart rate and high blood pressure. History Of Present Illness: This is an 82-year-old very pleasant female patient, who started to notice for the last 2 days, her heart rate was higher than normal, and today she went to cardiac rehab and just was not feeling well and it was noted that her heart rate was 150 beats per minute and she was advised to come to emergency room. Denies any chest pain or shortness of breath. No fever, chills, nausea, vomiting, diarrhea. After she was evaluated in the ER, she was diagnosed as having atrial fibrillation with rapid ventricular rate and she was given diltiazem and aspirin and I was contacted requesting an admission to the hospital. I saw her this evening and her was with her at bedside. Review of Systems: Cardiovascular: As mentioned above. All other systems reviewed are negative. Allergies: VALSARTAN, CAUSING ANGIOEDEMA; IODINE, CAUSING HIVES; SHELLFISH, CAUSING HIVES; AND RECLAST, CAUSE BONE PAIN. Medications: According to outpatient records, the patient is on: Aspirin 81 mg daily, Lumigan and Alphagan eye drops, and Simbrinza eye drops. Symbicort 2 puffs 2 times a day, clopidogrel 75 mg daily, gabapentin 300 mg takes 3 capsules daily at bedtime, vitamin D 2000 units daily, omeprazole 20 mg daily, rosuvastatin 20 mg daily at bedtime, lisinopril 20 mg daily in morning. Past Medical History: Significant for glaucoma, COPD, hypertension, hyperlipidemia, coronary artery disease, carotid artery stenosis, hemangioma of liver, gallstones, renal cyst, fibromyalgia, anemia, osteoporosis. Past Surgical History: Cataract surgery, tonsillectomy, coronary artery angioplasty with stent placement in March 2022 and April 2022. Carotid artery stent placement on the right side in December 2020, , hysterectomy, back surgery, wrist fracture surgery, breast implant, which was silicone implant and then changed to saline implant. Family History: Father , details unknown. Mother , had colon cancer. Siblings, no known health problems. Social History: Negative for smoking. Use of alcohol, negative. Physical Examination: VITAL SIGNS: When she first came to emergency room, blood pressure 121/81, pulse 148, temperature 98.1, oxygen saturation 100%. Respiratory rate 16, weight 56.25 kg, height 4 feet 11 inches. General: Awake, alert, oriented, not in distress. HEENT: Head atraumatic, normocephalic. Conjunctivae nonerythematous. Sclerae white. Mouth, no thrush or edema noted. Ears/Nose, no mass, lesion, discharge noted. Neck: Supple. No JVD, lymph nodes, bruit, thyromegaly noted. Lungs: Bilateral good equal air entry. Clear to auscultation. No rhonchi. No rales. Heart: Normal heart sounds, no murmur or gallop. Abdomen: Soft, bowel sounds normal. No guarding, rigidity, tenderness, mass, hepatosplenomegaly, distention, or bruit noted. Extremities: No leg edema. No calf tenderness. Skin: No rash, ulcer, cellulitis. Lymphatics: No lymph node enlargement in neck, supraclavicular, infraclavicular region. Neuro: No focal neurological deficit. Chest: Unremarkable. External Genitalia: Deferred. Rectal: Deferred. Laboratory Data: Chest x-ray no acute cardiopulmonary changes. EKG, atrial fibrillation with rapid ventricular rate. Sodium 132, potassium 4, chloride 100, bicarb 27, BUN 11, creatinine 0.92, glucose 123. Troponin 182. ProBNP 2943. White count 6.9, hemoglobin 10.7, platelets 302. Impression: 1. Atrial fibrillation with rapid ventricular rate. 2. Abnormal cardiac enzymes. 3. Coronary artery disease. 4. Hypertension. 5. Hyperlipidemia. 6. Carotid artery stenosis, bilateral. 7. Osteoporosis. 8. Chronic obstructive pulmonary disease. 9. Anemia, chronic, unspecified. Plan: We will admit patient to hospital for further evaluation and management of this problem. The patient is appropriate for inpatient and is expected to spend 2 midnights in hospital. The patient received aspirin and diltiazem in the emergency room, she has not received any anticoagulation therapy. We will go ahead and start her on Lovenox 40 mg subcutaneous injection every 12 hours starting tonight and continue aspirin 81 mg daily. The patient will have repeat cardiac enzyme tonight and tomorrow morning, elevated cardiac enzymes could be due to stress induced ischemia. We will repeat blood work tomorrow morning per order. Consult Cardiology. Get echo with Doppler tomorrow. Home medications will be continued per order including her statin therapy and I will see her tomorrow morning for followup. Details and plan of treatment discussed with her. ROSELINE/HARRISON Voice ID: [id number]
[2023-01-12 07:02] LABS: Hematocrit 31.2 % (36.0-45.0); Lymphocytes % 37.4 % (15.3-44.8); MCV 89.2 fL (80-100); MPV 8.7 fL (7.6-11.3); RBC Red Blood Cell Count 3.49 M/uL (3.86-4.86)
[2023-01-12 07:29] LABS: Albumin 3.5 g/dL (3.4-5.0); Bilirubin Total 0.3 mg/dL (0.2-1.0); Magnesium 2.1 mg/dL (1.6-2.4); Potassium 4.1 mEq/L (3.5-5.1); Protein, Total 6.5 g/dL (6.4-8.2); Thyroid Stimulating Hormone 3.64 uIU/mL (0.358-3.740)
[2023-01-12 07:34] LABS: Troponin High Sensitivity 221.4 pg/mL (<58.9)
[2023-01-12] MEDS ORDERED: AMIODARONE HCL 150 MG in D5W 100 ML IV ONE (08:15)
[2023-01-12] MEDS ORDERED: AMIODARONE HCL 900 MG in Dextrose 5%-Water 482 ML IV SCH (08:30)
[2023-01-12] MEDS: APIXABAN 5 MG TABLET PO SCH ×2 (08:34→20:32)
[2023-01-12] MEDS: PANTOPRAZOLE 40MG TABLET PO SCH (08:34)
[2023-01-12] MEDS: BRIMONIDINE TARTRATE OPTH SCH ×2 (08:34→20:32)
[2023-01-12] MEDS: CLOPIDOGREL 75 MG TABLET PO SCH (08:34)
[2023-01-12] MEDS ORDERED: ASPIRIN EC 81 MG TAB PO SCH (09:00)
[2023-01-12] MEDS ORDERED: HOME MED 1 EA UNK (Omeprazole [Prilosec] 40 MG Capsule.Dr) PO SCH (09:00)
[2023-01-12] MEDS ORDERED: ASPIRIN 325 MG TAB PO SCH (09:00)
--- NOTE | 2023-01-12 20:20 | PN ---
Date of Progress Note: 01/12/2023 Subjective: The patient was seen this morning for followup. She was in normal sinus rhythm when I s aw her yesterday evening and all throughout the night, she has remained in sinus rhythm, but early th is morning prior to my arrival, she started to have atrial fibrillation with rapid ventricular rate a gain. When I saw her this morning, she was complaining of feeling heart rate and kind of uneasy feel ing in her chest. Denies any chest pain. No shortness of breath. Objective: Vital Signs: Reviewed. HEENT: Unremarkable. Lungs: Clear to auscultation. Heart: Sounds normal. Heart rate was irregularly irregular and rapid. Abdomen: Soft. Bowel sounds normal. No guarding, rigidity, tenderness, distention. Extremities: No leg edema. Laboratory Data: White count 5.3, hemoglobin 10.3, platelets 275. Sodium 135, potassium 4.1, chlori de 103, bicarb 27, BUN 7, creatinine 0.79, glucose 106. Liver function tests unremarkable. Magnesiu m 2.1. Troponin is lower this morning and it is 221. TSH 3.64. Impression: 1.Atrial fibrillation with rapid ventricular rate. 2.Coronary artery disease. 3.Anemia. 4.Hypertension. Plan: We will go ahead and continue current medications with rosuvastatin and gabapentin per order. This morning after I saw her, I did communicate with our wardrobe specialty worker, Dr. Mendosa and we decided to start her on IV amiodarone and the patient was transferred to ICU. We will stop her aspirin and stop Lovenox, and start her on Eliquis and clopidogrel as per recommendation from wardrobe specialty worker. Echo suma l be done today and details and plan of treatment discussed with the patient. I will see her tomorrow for followup. ROSELINE/MODL Voice ID: [id number] Report ID: [id number]
--- NOTE | 2023-01-12 20:24 | EKG ---
Test Date: 2023-01-11 Test Time: 14:34:33 Meat Counter Clerk: ISAI MEASUREMENT RESULTS: Intervals: Rate: 73 OK: 224 QRSD: 88 QT: 392 QTc: 431 Ericson: P: 135 OK: 224 QRS: 61 T: 45 INTERPRETIVE STATEMENTS: Unusual P axis, possible ectopic atrial rhythm Nonspecific ST abnormality Abnormal ECG Compared to ECG 01/11/2023 13:57:35 Sinus tachycardia no longer present First degree AV block no longer present ST (T wave) deviation still present Electronically Signed On 01-12-23 20:21:57 CDT by Getachew Davis
--- NOTE | 2023-01-12 20:24 | EKG ---
Test Date: 2023-01-11 Test Time: 13:57:35 Railway Signal Operator: VANESSA MEASUREMENT RESULTS: Intervals: Rate: 131 HI: 232 QRSD: 102 QT: 320 QTc: 472 [place]: P: 65 HI: 232 QRS: 55 T: 10 INTERPRETIVE STATEMENTS: afib with rvr Nonspecific ST abnormality Abnormal ECG No previous ECG available for comparison Electronically Signed On 01-12-23 20:22:28 CDT by Getachew Davis
[2023-01-12] MEDS: ROSUVASTATIN 10 MG TAB PO SCH (20:31)
[2023-01-12] MEDS: GABAPENTIN 300 MG CAP PO SCH (20:32)
[2023-01-12] MEDS ORDERED: BIMATOPROST OPHTH DROPS/2.5 ML BTL OPTH SCH (21:00)
[2023-01-13] MEDS ORDERED: PANTOPRAZOLE 40MG TABLET PO SCH (06:30)
--- NOTE | 2023-01-13 06:42 | ECHO ---
HEIGHT: 5 ft 0 in WEIGHT: 125 lb 14.4 oz DATE OF STUDY: 01/12/[address]: Javier Dowd MD 2-DIMENSIONAL: YES M.MODE: YES DOPPLER: YES COLOR FLOW: YES TDS: YES PORTABLE: YES DEFINITY: BUBBLE STUDY: DIAGNOSIS: ATRIAL FIBRILLATION CARDIAC HISTORY: CATHERIZATION: YES SURGERY: PROSTHETIC VALVE: PACEMAKER: MEASUREMENTS (cm) DIASTOLIC (NORMALS) SYSTOLIC (NORMALS) IVSd 0.9 (0.6-1.2) LA Diam 4.0 (1.9-4.0) LVEF 64% LVIDd 3.0 (3.5-5.7) LVIDs 2.0 (2.0-3.5) %FS 34% LVPWd 1.0 (0.6-1.2) Ao Diam 2.0 (2.0-3.7) 2 DIMENSIONAL ASSESSMENT: RIGHT ATRIUM: NORMAL LEFT ATRIUM: NORMAL RIGHT VENTRICLE: NORMAL LEFT VENTRICLE: LEFT VENTRICULAR HYPERTROPHY TRICUSPID VALVE: NORMAL MITRAL VALVE: MITRAL ANNULAR CALCIFICATION PULMONIC VALVE: NORMAL AORTIC VALVE: NORMAL PERICARDIAL EFFUSION: NONE AORTIC ROOT: NORMAL LEFT VENTRICULAR WALL MOTION: NORMAL DOPPLER/COLOR FLOW: MILD TRICUSPID REGURGITATION. NORMAL RIGHT VENTRICULAR SYSTOLIC PRESSURE. COMMENTS: 1. NORMAL LEFT VENTRICULAR EJECTION FRACTION 2. NORMAL LEFT ATRIAL SIZE 3. NO THROMBUS 4. ATRIAL FIBRILLATION 5. LEFT VENTRICULAR HYPERTROPHY 6. MITRAL ANNULAR CALCIFICATION TECHNOLOGIST: MAURICE SANDOVAL
[2023-01-13] MEDS: PANTOPRAZOLE 40MG TABLET PO SCH (07:16)
[2023-01-13] MEDS: APIXABAN 5 MG TABLET PO SCH ×2 (08:18→20:28)
[2023-01-13] MEDS: CLOPIDOGREL 75 MG TABLET PO SCH (08:19)
[2023-01-13] MEDS: BRIMONIDINE TARTRATE OPTH SCH ×2 (08:19→14:45)
[2023-01-13] MEDS: METOPROLOL TAR 25 MG TAB PO SCH ×2 (08:19→20:27)
[2023-01-13] MEDS: AMIODARONE HCL 200 MG TAB PO SCH ×2 (09:28→20:27)
--- NOTE | 2023-01-13 17:04 | EKG ---
Test Date: 2023-01-12 Test Time: 05:51:21 Cryptological Technician: Felicity MEASUREMENT RESULTS: Intervals: Rate: 102 FL: QRSD: 88 QT: 358 QTc: 466 Dell: P: FL: QRS: 60 T: 45 INTERPRETIVE STATEMENTS: Atrial fibrillation with rapid ventricular response with a competing junctional pacemaker ST depression, consider subendocardial injury or digitalis effect Abnormal ECG Compared to ECG 01/11/2023 14:34:33 No significant changes Electronically Signed On 01-13-23 17:02:47 CDT by Joe Mendosa
[2023-01-13] MEDS: ROSUVASTATIN 10 MG TAB PO SCH (20:28)
[2023-01-13] MEDS: GABAPENTIN 300 MG CAP PO SCH (20:28)
[2023-01-13] MEDS ORDERED: VYZULTA EYE OPTH SCH (21:00)
--- NOTE | 2023-01-13 21:08 | CON ---
Date of Consultation: 01/13/2023 Reason For Consultation: Atrial fibrillation with rapid ventricle response. History Of Present Illness: An 82-year-old female presented to the emergency room due to palpitation s. She was found to be in atrial fibrillation with rapid ventricular response, heart rate up to 150 beats per minute. Denies having any chest pain or shortness of breath. No nausea, vomiting, or diar isaac. She was placed on amiodarone drip and continues to be in atrial fibrillation, but rate control led. Has no symptoms today. Past Medical History: Significant for COPD; hypertension; dyslipidemia; coronary artery disease; car otid stenosis, status post cardiac stent placement recently in May by cement contractor in [place]. Medications: Refer to reconciliation sheet for detailed list. Allergies: IODINE. Family History: No premature coronary artery disease or cancer. Social History: She does not smoke or drink. Does not use any drugs. Review of Systems: All systems reviewed and they were negative except what mentioned in HPI. Physical Examination: Vital Signs: Reviewed. Head and Neck: Pupils are equal, reactive to light. Intact eye movements. No JVD. No cervical lym phadenopathy. Neck: Supple. Thyroid is not enlarged. Lungs: Clear to auscultation bilaterally. No rhonchi, wheezing, or crackles. No accessory muscle u se. Heart: Irregularly irregular. No extra sounds. Abdomen: Soft, nontender. Bowel sounds positive. No organomegaly. No masses or hernia. No rigidi ty or rebound. Extremities: No edema, clubbing, or cyanosis. Intact pulses. Skin: No rash. Neurologic: Alert, awake, oriented x3. No acute focal deficits appreciated. Investigations: BUN 7, creatinine 0.79. Troponin peaked at 304 and now down to 221. Hemoglobin 10. 3. Assessment/recommendations: 1.Atrial fibrillation with rapid ventricular response. Agree with amiodarone to switch to 200 mg by mouth twice a day once a full 24 hours load is completed and continue Eliquis. We will plan for a T EE-guided cardioversion tomorrow. She continues to be in atrial fibrillation. 2.Elevated troponin. She is known to have history of coronary artery disease, status post cardiac s tent placement in May this past year. No chest pain. This is likely demand ischemia and no fur ther testing is recommended as an inpatient. After we get her atrial fibrillation situated, patient can be released and she can follow up with her primary cement contractor on this matter. However, to cont inue Plavix, aspirin was stopped due to the fact that she is on Eliquis. 3.Dyslipidemia. Continue statin. SR/MODL Voice ID: [id number] Report ID: [id number]
[2023-01-13] MEDS ORDERED: NA CHLORIDE 0.9% 250 ML IV PRN (23:27)
[2023-01-13] MEDS ORDERED: NA CHLORIDE 0.9% 250 ML IV ONE (23:37)
--- NOTE | 2023-01-14 02:29 | PN ---
Date of Progress Note: 01/13/2023 Subjective: The patient was seen this morning for followup. No new complaints or problems reported by the patient, lying in bed, not in any distress. She was in ICU on IV amiodarone drip. Her heart rate was 120 to 126 per minute and she was in atrial fibrillation/atrial flutter with rapid ventricul ar rate. Denies any palpitation, chest pain, shortness of breath. No nausea. No vomiting. Objective: Vital Signs: Reviewed. HEENT: Examination unremarkable. Lungs: Clear to auscultation. Heart: Sounds normal. Abdomen: Soft. Bowel sounds normal. No guarding, rigidity, tenderness, distention. Extremities: No leg edema. Impression: 1.Atrial fibrillation with rapid ventricular rate. 2.Hypertension. Plan: We will go ahead and continue current amiodarone. Echocardiogram shows normal ejection fracti on. Adjunct Teacher, Dr. Mendosa evaluated her and he communicated with me and informed me that he is pl anning to do transesophageal echo and then cardioversion tomorrow. The patient remains on anticoagul ation therapy with Eliquis and metoprolol 12.5 mg b.i.d. was ordered this morning after I saw her. John malcolming the course of day today, the patient informed my office staff and ICU nurse that she does not f eel comfortable getting any cardiac procedure at our hospital and her surgical garment fitter is Dr. Saavedra at [facility] and she wanted us to try to transfer her to [place] or she will follow up with him af ter she gets discharged from our hospital. I did try to contact Dr. Saavedra today, left a message and gala regalado for his call back to see whether he will be willing to go ahead and accept the patient for tra nsfer or not and this was sometime this afternoon. Later this evening, ICU nurse contacted me and in formed me that the patient has decided that tomorrow she will leave our hospital and she will go to [facility] after leaving our hospital, so I will see her tomorrow morning and I will communicate with her. I have communicated about all these with our surgical garment fitter, Dr. Mendosa thi s evening. ROSELINE/MODL Voice ID: [id number] Report ID: [id number]
[2023-01-14 04:53] LABS: Absolute Lymphocytes (CBC) 2.1 K/uL (0.7-4.9); Hematocrit 29.6 % (36.0-45.0); MCV 89.1 fL (80-100); MPV 8.8 fL (7.6-11.3); RBC Red Blood Cell Count 3.32 M/uL (3.86-4.86)
[2023-01-14 05:17] LABS: Magnesium 1.8 mg/dL (1.6-2.4); Potassium 4.1 mEq/L (3.5-5.1)
[2023-01-14] MEDS: PANTOPRAZOLE 40MG TABLET PO SCH (06:44)
[2023-01-14 08:11] VITALS: O2SAT 95
[2023-01-14] MEDS: CLOPIDOGREL 75 MG TABLET PO SCH (08:31)
[2023-01-14] MEDS: APIXABAN 5 MG TABLET PO SCH (08:31)
[2023-01-14] MEDS: BRIMONIDINE TARTRATE OPTH SCH (08:32)
[2023-01-14] MEDS: AMIODARONE HCL 200 MG TAB PO SCH (08:32)
[2023-01-14 09:18] VITALS: BP 128/89; TEMP 97.5
--- NOTE | 2023-01-16 10:17 | DS ---
Date of Discharge: 01/14/2023 Disposition: Discharged to go home. Physical Examination: HEENT: Unremarkable. Lungs: Clear to auscultation. Heart: Sounds normal. Abdomen: Soft. Bowel sounds normal. No guarding, rigidity, tenderness, distention. Extremities: No leg edema. Laboratory Data: Upon admission; white count 6.9, hemoglobin 10.7, platelets 302. Today; white count 6.1, hemoglobin 9.7, platelets 260. Upon admission; sodium 132, potassium 4, chloride 100, bicarb 27, BUN 11, creatinine 0.92, glucose 123. Today; sodium 128, potassium 4.1, chloride 99, bicarb 27, BUN 8, creatinine 0.85, glucose 93, magnesium 1.8. Initial troponin upon admission was 182.7, second troponin 304.4, and last troponin was 211.4. Liver function tests were unremarkable. TSH 3.64, LDL 28, total cholesterol 109, HDL 28, and triglycerides 62. Hospital Course: This is an 82-year-old very pleasant female patient, came into emergency room with complaints of rapid heart rate and high blood pressure problem. Please see dictated H and P for more information. The patient was evaluated in the emergency room and was admitted to the hospital with atrial fibrillation with rapid ventricular rate. Her heart rate initially was in range of 150 to 160 per minute. Hemodynamically, initially she was stable and she was on the medical floor telemetry unit and yesterday morning in atrial fibrillation. After she came to ER, she received diltiazem. Cardiology consultation was obtained and the patient converted to sinus rhythm on first day but, she went back into atrial fibrillation with rapid ventricular rate. Cardiology consultation was obtained from Dr. Mendosa and he agreed to start her on IV amiodarone drip, so the patient was transferred to ICU, IV amiodarone drip was started and the patient tolerated that very well. Her heart rate came under much better control and she has had atrial flutter now that we see from time to time and her heart rate is much better controlled. Dr. Mendosa recommended for the patient to take anticoagulation therapy, Eliquis and continue anti-platelet therapy, clopidogrel, but did go ahead and discontinued her aspirin. Today morning, we gave her 1 small dose of metoprolol 12.5 mg which she tolerated very well because her systolic blood pressure was between 110 to 120. The second dose of metoprolol was given last night and after that she dropped her systolic blood pressure in the range of 75 to 80 range and she did require 500 cc of IV fluid bolus and after that her blood pressure has come back up to normal and now her systolic blood pressure is between 110 to 120. This morning, she is totally asymptomatic, feeling fine, her heart rate is between 60 to 80 and maintaining normal oxygenation on room air. Dr. Mendosa recommended transesophageal echocardiogram and then cardioverted to be that today, but the patient does not feel comfortable doing such procedure at our hospital, so she is requesting for us to discharge her and she will go to [facility] where her parts room associate is and she tells me today that her family will take her soon as she gets discharged from this hospital to [facility] Room in [place]. The patient is medically stable for discharge and I have advised her to go ahead and follow up with me as outpatient next week. I did communicate with her parts room associate at [facility], Dr. Saavedra and provided all the details including treatment provided so far at our hospital. Final Diagnoses: 1. Atrial fibrillation with rapid ventricular rate. 2. Abnormal cardiac enzymes, likely demand ischemia. 3. Coronary artery disease. 4. Hypertension. 5. Hyperlipidemia. 6. Carotid artery stenosis, bilateral. 7. Osteoporosis. 8. Chronic obstructive pulmonary disease. 9. Anemia, chronic, unspecified. Discharge Medications And Instructions: Continue all prior home medication except following changes; 1. Stop aspirin and stop lisinopril. 2. Start amiodarone 200 mg 1 tablet 2 times a day and Eliquis 5 mg 2 times a day. ROSELINE/MODL Voice ID: [id number] Report ID: [id number] GIAN
== END 2023-01-14 09:10 | disposition home or self-care (01) | DRG 309 ==
LOC: ER 13:22 → ERHOLD 16:09 → 4TH 19:05 → 3RD-ICU 01-12 08:05
PROVIDERS: ADMIT Internal Medicine; ATTEND Internal Medicine
DX: I48.19 Other persistent atrial fibrillation (principal); I24.8 Other forms of acute ischemic heart disease; J44.9 Chronic obstructive pulmonary disease, unspecified; I10 Essential (primary) hypertension; M79.7 Fibromyalgia; I48.92 Unspecified atrial flutter; I65.23 Occlusion and stenosis of bilateral carotid arteries; M81.0 Age-related osteoporosis without current pathological fracture; D64.9 Anemia, unspecified; E78.00 Pure hypercholesterolemia, unspecified; I25.10 Atherosclerotic heart disease of native coronary artery without angina pectoris; Z95.5 Presence of coronary angioplasty implant and graft; Z79.82 Long term (current) use of aspirin; Z79.52 Long term (current) use of systemic steroids; Z79.02 Long term (current) use of antithrombotics/antiplatelets; Z91.013 Allergy to seafood; Z91.048 Other nonmedicinal substance allergy status; Z90.710 Acquired absence of both cervix and uterus; Z79.899 Other long term (current) drug therapy
CPT/HCPCS: 36415; 71045; 80048; 80053; 80061; 83735; 83880; 84443; 84484; 85025; 85610; 93005; 93306; 96365; 96375; 99285; J0282; J1650; J3475; J7040; J7050; J7060

== ENCOUNTER 2024-04-08 09:59 | Emergency (ER) | payer OTHER, MEDICARE ==
[2024-04-08] MEDS ORDERED: TRAMADOL HCL 50 MG TAB ONE (10:45)
--- NOTE | 2024-04-08 10:53 | RAD REPORT ---
EXAMINATION: CT HEAD WITHOUT CONTRAST CT CERVICAL SPINE WITHOUT CONTRAST CLINICAL INDICATION: Female, 83 years old. TRAUMA TECHNIQUE: Axial CT images from the skull base to the vertex without intravenous contrast. Axial CT i mages through the cervical spine were obtained without intravenous contrast. Sagittal and coronal reformatted images were created from the data set. Coronal and sagittal reformatted images were creat ed from the data set. One or more of the following dose reduction techniques were used: Automated exposure control, adjustment of the mA and/or kV according to patient size, and/or iterative reconstr uction. Unless otherwise specified, incidental findings do not require dedicated imaging follow-up. [id number]. COMPARISON: No prior exam. FINDINGS: Head: INTRACRANIAL: No acute intracranial hemorrhage or extraaxial collection. No abnormal brain parenchyma l density. No evidence of acute infarction. The ventricles are normal in size and morphology. No mass or midline shift. Cerebral atrophy with chronic small vessel ischemic changes. VASCULATURE: No visualized abnormalities in the arteries or dural venous sinuses. SCALP/SKULL: No significant soft tissue or osseous abnormalities. Right forehead hematoma. SINUSES: The visualized paranasal sinuses and mastoid air cells are predominantly clear. Cervical spine: ALIGNMENT: The cervical spine has normal alignment without scoliosis or spondylolisthesis. BONE: Vertebral body heights are maintained. No aggressive osseous lesions. DEGENERATIVE CHANGES: Multilevel degenerative changes are present in the spine. Varying degrees of ne ural foraminal narrowing noted. No high-grade central spinal stenosis. SOFT TISSUE: Right carotid artery stent. IMPRESSION: No acute intracranial abnormality. No acute fracture or traumatic malalignment of the cervical spine.
--- NOTE | 2024-04-08 11:29 | RAD REPORT ---
EXAM:Knee Right 3 View HISTORY: PAIN COMPARISON: None IMPRESSION: Tibial plateau fracture. The fracture line extends from the medial aspect of the proximal tibial meta diaphysis and extends up to the tibial spine, possibly involving the lateral tibial plateau. Lipohemarthrosis is present. The distal femur and fibula are intact. Consider CT to better delineate the fracture.
--- NOTE | 2024-04-08 11:29 | RAD REPORT ---
EXAM:Tib Fib Right HISTORY: PAIN COMPARISON: None IMPRESSION: Tibial plateau fracture. Reference knee radiograph. No other fracture involving the tibia or fibula identified.
[2024-04-08] MEDS ORDERED: TDAP (DIPHTH,PERTUSS(ACELL),TET VAC) 0.5 ML VIAL IMVAC ONE (11:43)
--- NOTE | 2024-04-08 12:38 | EDPHYS ---
Physician Documentation [facility] Name: Patricia Tucker Age: 83 yrs Sex: Female : 1940 Arrival Date: 04/08/2024 Time: 09:59 Bed 19 Private MD: ED Physician Tarun Arshad HPI: 04/08 10:15 This 83 yrs old Female presents to ER via Wheelchair with complaints of Fall dr5 Injury. 10:15 Details of fall: The patient fell from a height, standing. Associated injuries: The dr5 patient sustained injury to the head, abrasion, laceration, 0.2 cm(s), of the forehead, right knee and right handley, contusion, swelling. Pt was walking and tripped on curb landing on right leg and hitting head. Pt is on Eliquis BID.. 10:15 Pt denies loss of consciousness and denies weakness / dizziness prior to falling.. dr5 Historical: - Allergies: 10:12 Iodine; hb 10:12 SHELLFISH; hb - Home Meds: 10:12 aspirin 81 mg Oral capsule [Active]; gabapentin oral [Active]; lisinopril Oral hb [Active]; Plavix 75 mg Oral tablet [Active]; rosuvastatin oral [Active]; - PMHx: 10:12 Atrial fibrillation; COPD; High Cholesterol; Hypertensive disorder; hb - PSHx: 10:12 cardiac stents x3; hb - Immunization history:: Adult Immunizations up to date. - Infectious Disease History:: Denies. - Social history:: Smoking status: Patient denies any tobacco usage or history of. ROS: 10:19 Constitutional: as per hpi dr5 Exam: 10:19 Constitutional: This is a well developed, well nourished patient who is awake, alert, dr5 and in no acute distress. Chest/axilla: Normal chest wall appearance and motion. Nontender with no deformity. No lesions are appreciated. Cardiovascular: Irregularly irregular rate and rhythm with a normal S1 and S2. Normal PMI, no JVD. No pulse deficits. Respiratory: Lungs have equal breath sounds bilaterally, clear to auscultation. No rales, rhonchi or wheezes noted. No increased work of breathing, no retractions or nasal flaring. Abdomen/GI: Soft, non-tender, non-distended 10:19 Head/face: Noted is contusion, ecchymosis, hematoma, that is mild, of the right forehead right above right eye, a laceration(s), that is superficial, that is linear, 0.2 cm(s), of the forehead, 10:19 Eyes: Exam is negative for acute changes, visual changes, 10:19 ENT: Exam is negative for acute changes, 10:19 Neck: Exam negative for acute changes, C-spine: appears grossly normal, no vertebral tenderness, no acute changes, 10:19 Chest/axilla: Exam negative for acute changes, abrasion, tenderness, 10:19 Cardiovascular: Exam negative for acute changes, pulse deficit, tachycardia, 10:19 Respiratory: Exam negative for acute changes, respiratory distress, intercostal retractions, tachypnea, 10:19 Abdomen/GI: Exam negative for acute changes, 10:19 Back: Exam negative for acute changes, 10:19 Musculoskeletal/extremity: Extremities: grossly normal except: noted in the right lower knee / right upper tibia anteriorly: swelling, tenderness, 10:19 Skin: injury, abrasion(s), small abrasion noted, of the right posterior arm, Avulsion to left thumb with skin flap covering wound. Abrasion to left palm., , 10:19 Neuro: Exam negative for acute changes, Orientation: is normal, to person, place, time \T\ situation. Mentation: is normal, Memory: is normal, Vital Signs: 10:09 BP 137 / 50; Pulse 66; Resp 16; Temp 97.7; Pulse Ox 100% on R/A; Weight 54.43 kg; hb Height 5 ft. 0 in. ; Pain 10/10; 11:00 BP 151 / 61; Pulse 55; Resp 18; Pulse Ox 97% ; db 12:55 BP 158 / 49; Pulse 52; Resp 18; Temp 97.9; Pulse Ox 98% ; db 10:09 Body Mass Index 23.44 (54.43 kg, 152.4 cm) hb 10:09 Pain Scale: Adult hb [place] Coma Score: 12:55 Eye Response: spontaneous(4). Motor Response: obeys commands(6). Verbal Response: db oriented(5). Total: 15. Trauma Score (Adult): 10:05 Eye Response: spontaneous(1); Verbal Response: oriented(1); Motor Response: obeys hb commands(2); Systolic BP: > 89 mm Hg(4); Respiratory Rate: 10 to 29 per min(4); [place] Score: 15; Trauma Score: 12 Procedures: 12:38 Splinting: Splint applied to right leg using Posterior long leg splint. applied by dr5 tech. Examined by me, post splint application: neurovascular intact, 2+ distal pulses palpable, brisk capillary refill noted, Patient tolerated well. MDM: 10:05 Patient medically screened. dr5 11:33 Differential diagnosis: abrasion, contusion, fracture. Data reviewed: vital signs, dr5 nurses notes. Consideration of Admission/Observation Escalation of care including admission/observation considered. Escalation / admission vs transfer if ICH present. Care significantly affected by the following chronic conditions: Hypertension, Atrial Fibrillation, COPD, Hyperlipidemia. Care significantly affected by the following Social Determinants of Health: Poor access to healthcare and/or lack of insurance. Counseling: I had a detailed discussion with the patient and/or guardian regarding the historical points, exam findings, and any diagnostic results supporting the discharge/admit diagnosis, the presence of at least one elevated blood pressure reading (>120/80) during this emergency department visit, radiology results, the need for outpatient follow up, for definitive care, a orthopedic surgeon, to return to the emergency department if symptoms worsen or persist or if there are any questions or concerns that arise at home. Medication response: Tramadol - Pain decreased. Response to treatment: the patient's symptoms have mildly improved after treatment. ED course: Patient has tibial plateau fracture. Posterior long leg splint placed. Crutches offered but declined due to her having them at home. Patient states she will follow up with her orthopedic on Wednesday. X-ray results printed and given to patient to take with her.. 04/08 10:14 Order name: Head C Spine MPR Wo Con CT; Complete Time: 10:56 dr5 04/08 10:14 Order name: Knee Right 3 View XRAY; Complete Time: 11:32 dr5 04/08 10:14 Order name: Tib Fib Right XRAY; Complete Time: 11:32 dr5 04/08 11:28 Order name: Posterior Leg Splint; Complete Time: 12:58 dr5 04/08 11:28 Order name: Wound Care; Complete Time: 12:00 dr5 Administered Medications: 11:06 Drug: traMADol PO 25 mg PO once Route: PO; db 13:12 Follow up: Response: No adverse reaction db 11:50 Drug: Boostrix Tdap IM 0.5 ml IM once; as a single dose Route: IM; Site: right deltoid; db 13:12 Follow up: Response: No adverse reaction db Disposition: 14:06 Co-signature as Attending Physician, Tarun Arshad MD I reviewed the patient's care rt provided by the Advanced Practice Provider and agree with the diagnosis and treatment plan. Disposition Summary: 04/08/24 12:38 Discharge Ordered Notes: Location: Home dr5 Condition: Stable dr5 Diagnosis - Other fracture of right lower leg, initial encounter for closed fracture dr5 Followup: dr5 - With: Emergency Department - When: As needed - Reason: Worsening of condition Followup: dr5 - With: Private Physician - When: 1 - 2 days - Reason: Recheck today's complaints, Continuance of care, Re-evaluation by your physician Discharge Instructions: - Discharge Summary Sheet dr5 - Nondisplaced Tibial Plateau Fracture dr5 - Tibial Fracture, Adult, [id number] dr5 Forms: - Medication Reconciliation Form dr5 - Patient Portal Instructions dr5 - Leadership Thank You Letter dr5 Signatures: Dispatcher [employer] EDMS Judy Dickens RN RN hb Pam Gonzales RN RN Tarun Rich MD MD rt [employer], SALES AND BUSINESS DEVELOPMENT MANAGER-C SALES AND BUSINESS DEVELOPMENT MANAGER-Cdr5 Corrections: (The following items were deleted from the chart) 10:15 10:15 Knee Right 3 View+RAD.RAD.BRZ ordered. EDMS EDMS 10:15 10:15 Tib Fib Right+RAD.RAD.[email or web address] ordered. EDMS EDMS 13:11 12:38 Splinting: Splint applied to right leg using Posterior long leg splint. dr5 dr5
--- NOTE | 2024-04-08 12:38 | ER ---
Nurse's Notes [facility] Name: Patricia Tucker Age: 83 yrs Sex: Female : 1940 Arrival Date: 04/08/2024 Time: 09:59 Bed 19 Private MD: Diagnosis: Other fracture of right lower leg, initial encounter for closed fracture Presentation: 04/08 10:09 Chief complaint: Tripped over curb and landed on right side, c/o headache and right hb knee pain 04/13. Negative LOC, takes Eliquis. Contusion noted to right forehead, mild swelling noted to right knee. Coronavirus screen: At this time, the client does not indicate any symptoms associated with coronavirus-19. Ebola Screen: No symptoms or risks identified at this time. Initial Sepsis Screen: Does the patient meet any 2 criteria? No. Patient's initial sepsis screen is negative. Does the patient have a suspected source of infection? No. Patient's initial sepsis screen is negative. Risk Assessment: Do you want to hurt yourself or someone else? Patient reports no desire to harm self or others. Onset of symptoms was April 08, 2024. 10:09 Method Of Arrival: Wheelchair hb 10:09 Acuity: JOSE 3 hb 10:10 Care prior to arrival: None. hb 10:10 Mechanism of Injury: Fall from standing position. Trauma event details: Injury occurred hb in the [facility], Injury occurred: on a street or highway. Injury occurred: April 08, 2024 Injury occurred at: 09:45. Trauma Activation: Not Applicable Physician: ED Physician; Name: ; Notified At: ; Arrived At: Physician: General Surgeon; Name: ; Notified At: ; Arrived At: Physician: Radiology; Name: ; Notified At: ; Arrived At: Physician: Respiratory; Name: ; Notified At: ; Arrived At: Physician: Lab; Name: ; Notified At: ; Arrived At: Historical: - Allergies: 10:12 Iodine; hb 10:12 SHELLFISH; hb - Home Meds: 10:12 aspirin 81 mg Oral capsule [Active]; gabapentin oral [Active]; lisinopril Oral hb [Active]; Plavix 75 mg Oral tablet [Active]; rosuvastatin oral [Active]; - PMHx: 10:12 Atrial fibrillation; COPD; High Cholesterol; Hypertensive disorder; hb - PSHx: 10:12 cardiac stents x3; hb - Immunization history:: Adult Immunizations up to date. - Infectious Disease History:: Denies. - Social history:: Smoking status: Patient denies any tobacco usage or history of. Screenin:11 [facility] ED Fall Risk Assessment (Adult) History of falling in the last 3 months, db including since admission Yes- single mechanical fall (1 pt) Confusion or Disorientation No (0 pts) Intoxicated or Sedated No (0 pts) Impaired Gait No (0 pts) Mobility Assist Device Used No (0 pt) Altered Elimination No (0 pt) Score/Fall Risk Level 0 - 2 = Low Risk Oriented to surroundings, Maintained a safe environment. Abuse screen: Denies threats or abuse. Denies injuries from another. Nutritional screening: No deficits noted. Tuberculosis screening: No symptoms or risk factors identified. Primary Survey: 10:05 NO uncontrolled hemorrhage observed. A: The client is awake and alert. The airway is hb patent. Breathing/Chest: Spontaneous respiratory effort, equal unlabored respirations, breath sounds clear bilaterally, regular pattern, symmetrical chest rise and fall. Circulation: No external hemorrhage present. Regular and strong central pulse, skin warm/dry/normal color. Disability Client is alert. Exposure/Environment: There is no evidence of uncontrolled external bleeding. 12:55 Reassessment Alertness and Airway: Awake and alert. The airway is patent. Breathing: db Spontaneous respiratory effort, equal unlabored respirations, breath sounds clear bilaterally, regular pattern with symmetrical chest rise and fall. Respiratory effort Spontaneous Unlabored Circulation: No external hemorrhage noted. Regular and strong central pulse, skin warm/dry/normal color. Disability: Alert. Assessment: 10:10 Reassessment: Patient appears in no apparent distress at this time. Patient and/or db family updated on plan of care and expected duration. Pain level reassessed. Patient is alert, oriented x 3, equal unlabored respirations, skin warm/dry/pink. General: Appears in no apparent distress. comfortable, Behavior is calm, cooperative, appropriate for age. Pain: Complains of pain in right leg. Neuro: Level of Consciousness is awake, alert, obeys commands, Oriented to person, place, time, situation. Respiratory: Airway is patent Respiratory effort is even, unlabored, Respiratory pattern is regular, symmetrical. Musculoskeletal: Circulation, motion, and sensation intact. Capillary refill Range of motion: limited in right knee. 12:59 Reassessment: RIGHT POSTERIOR LONG LEG SPLINT APPLIED BY TECH. NEURO INTACT. db 13:11 Reassessment: Patient appears in no apparent distress at this time. Patient and/or db family updated on plan of care and expected duration. Pain level reassessed. Patient is alert, oriented x 3, equal unlabored respirations, skin warm/dry/pink. Vital Signs: 10:09 BP 137 / 50; Pulse 66; Resp 16; Temp 97.7; Pulse Ox 100% on R/A; Weight 54.43 kg; hb Height 5 ft. 0 in. ; Pain 10/10; 11:00 BP 151 / 61; Pulse 55; Resp 18; Pulse Ox 97% ; db 12:55 BP 158 / 49; Pulse 52; Resp 18; Temp 97.9; Pulse Ox 98% ; db 10:09 Body Mass Index 23.44 (54.43 kg, 152.4 cm) hb 10:09 Pain Scale: Adult hb Goldsmith Coma Score: 12:55 Eye Response: spontaneous(4). Motor Response: obeys commands(6). Verbal Response: db oriented(5). Total: 15. Trauma Score (Adult): 10:05 Eye Response: spontaneous(1); Verbal Response: oriented(1); Motor Response: obeys hb commands(2); Systolic BP: > 89 mm Hg(4); Respiratory Rate: 10 to 29 per min(4); Goldsmith Score: 15; Trauma Score: 12 ED Course: 10:02 Patient arrived in ED. sj2 10:03 Avery Hale [facility]-C [facility]. dr5 10:03 Tarun Arshad MD is Attending Physician. dr5 10:05 Patient has correct armband on for positive identification. Bed in low position. Call hb light in reach. Side rails up X 1. 10:05 Patient maintains SpO2 saturation greater than 95% on room air. hb 10:10 Pam Gonzales, ARSEN is Primary Nurse. db 10:12 Triage completed. hb 10:14 Arm band placed on. hb 10:[address] via stretcher. db 10:47 Head C Spine MPR Wo Con CT In Process Unspecified. EDMS 11:18 Knee Right 3 View XRAY In Process Unspecified. EDMS 11:18 Tib Fib Right XRAY In Process Unspecified. EDMS 12:01 Wound care: to abrasion, located on right arm was dressed with Neosporin, 4X4s, Kerlix, db Patient tolerated well. 12:58 Orthoglass splint: Posterior long leg splint applied on right leg. em1 13:11 Provided Education on: FOLLOWUP AND ORTHOPEDIC CARE. Pulse ox on. NIBP on. Warm blanket db given. Pillow given. 13:11 No provider procedures requiring assistance completed. Patient did not have IV access db during this emergency room visit. Administered Medications: 11:06 Drug: traMADol PO 25 mg PO once Route: PO; db 13:12 Follow up: Response: No adverse reaction db 11:50 Drug: Boostrix Tdap IM 0.5 ml IM once; as a single dose Route: IM; Site: right deltoid; db 13:12 Follow up: Response: No adverse reaction db Medication: 13:11 VIS not applicable for this client. db Output: 12:55 Other: 1; Total: 0ml. db Outcome: 12:38 Discharge ordered by . dr5 13:11 Discharged to home via wheelchair, with family, db 13:11 Condition: stable 13:11 Discharge instructions given to patient, family, Instructed on discharge instructions, follow up and referral plans. 13:13 Patient left the ED. db Signatures: Dispatcher [employer] Anibal Patel em1 Judy Dickens, RN RN Pam Ralph RN RN db Lewis Ramirez 2 Avery Hale, GREASE CUP FILLER-C GREASE CUP FILLER-Cdr5
[2024-04-08 13:22] VITALS: BP 158/49; TEMP 97.9; O2SAT 98
== END 2024-04-08 13:13 | disposition home or self-care (01) ==
LOC: ER 09:59
PROC: 2W3LX1Z Immobilization of Right Lower Extremity using Splint (ICD-10-PCS; principal; 2024-04-08)
DX: S82.891A Other fracture of right lower leg, initial encounter for closed fracture (principal); S01.81XA Laceration without foreign body of other part of head, initial encounter; W18.09XA Striking against other object with subsequent fall, initial encounter; I10 Essential (primary) hypertension; I48.91 Unspecified atrial fibrillation; Z79.01 Long term (current) use of anticoagulants; Z95.818 Presence of other cardiac implants and grafts
CPT/HCPCS: 70450; 72125; 96372; 99285

== ENCOUNTER 2024-05-03 14:42 | Inpatient (IN) | payer OTHER, MEDICARE ==
[2024-05-03] MEDS ORDERED: NA CHLORIDE 0.9% 500 ML ONE (15:31)
[2024-05-03] MEDS ORDERED: ONDANSETRON 4 MG/2 ML VIAL ONE (15:31)
[2024-05-03 15:54] LABS: Absolute Eosinophils 0.1 K/uL (0-0.5); Absolute Lymphocytes (CBC) 0.9 K/uL (0.7-4.9); Absolute Neutrophil 10.8 K/uL (1.8-8.0); Basophils % 0.3 % (0-1.3); Eosinophils % 0.4 % (0-4.4); Hematocrit 30.6 % (36.0-45.0); Hemoglobin 9.9 g/dL (12.0-15.0); Lymphocytes % 6.8 % (15.3-44.8); MCH 28.9 pg (27.0-35.0); MCHC 32.3 g/dL (32.0-36.0); MCV 89.6 fL (80-100); MPV 8.4 fL (7.6-11.3); Monocytes % 8.1 % (3.3-12.3); Neutrophils % 84.4 % (41.7-73.7); Platelets 408 thou/uL (152-406); RBC Red Blood Cell Count 3.42 M/uL (3.86-4.86); Red Cell Distribution Width 15.2 % (12.1-15.2)
[2024-05-03 16:14] LABS: Albumin 3.3 g/dL (3.4-5.0); Albumin/Globulin Ratio 0.8 (1.1-1.8); Anion Gap 10.3 mEq/L (5.0-15.0); Bilirubin Total 0.7 mg/dL (0.2-1.0); Globulin 4.1 g/dL (2.3-3.5); Potassium 3.3 mEq/L (3.5-5.1); Protein, Total 7.4 g/dL (6.4-8.2)
--- NOTE | 2024-05-03 16:22 | RAD REPORT ---
EXAMINATION: CT ABDOMEN AND PELVIS WITHOUT CONTRAST CLINICAL INDICATION: constipation;Abd pain TECHNIQUE: CT abdomen and pelvis was performed, without IV contrast, as per department protocol. Axia l, sagittal and coronal reconstructions were obtained. One or more of the following dose reduction techniques were used: Automated exposure control, adjustment of the mA and kV according to the patien t size, and iterative reconstruction. Unless otherwise specified, incidental findings do not require dedicated imaging follow-up. COMPARISON: No prior exam. FINDINGS: The lack of intravenous contrast limits the sensitivity of this exam for evaluation of solid visceral organs, vascular structures, and retroperitoneum. LOWER CHEST: The visualized lung bases are clear. LIVER:Benign liver cysts. Cholelithiasis. SPLEEN: Normal size. No focal lesion. PANCREAS: No mass, ductal dilation, or toan-pancreatic fluid. ADRENALS: Normal; no mass. KIDNEYS AND URETERS: Normal size and contour. No hydronephrosis. URINARY BLADDER: Normal contour. GASTROINTESTINAL TRACT: No evidence of bowel obstruction, significant free fluid, free air or abscess . Moderate thickening of the descending colon. No pneumatosis. APPENDIX: Normal appendix. LYMPH NODES: No lymphadenopathy. MUSCULOSKELETAL: No acute or suspicious osseous abnormality. ADDITIONAL FINDINGS: None. IMPRESSION: Moderate left-sided colitis. Cholelithiasis.
--- NOTE | 2024-05-03 16:48 | ER ---
Nurse's Notes [facility] Name: Patricia Tucker Age: 83 yrs Sex: Female : 1940 Arrival Date: 05/03/2024 Time: 14:42 Bed 2 Private MD: Diagnosis: Left sided colitis without complications Presentation: 05/03 15:07 Chief complaint: Patient states: Abdominal cramping X2 weeks and constipation X1 week. cm10 Pt reports that yesterday she had an episode of nausea. Coronavirus screen: Client denies travel out of the [place] in the last 14 days. Ebola Screen: Patient denies travel to an Ebola-affected area in the 21 days before illness onset. No symptoms or risks identified at this time. Initial Sepsis Screen: Does the patient meet any 2 criteria? No. Patient's initial sepsis screen is negative. Does the patient have a suspected source of infection? No. Patient's initial sepsis screen is negative. Risk Assessment: Do you want to hurt yourself or someone else? Patient reports no desire to harm self or others. Onset of symptoms was May 03, 2024. 15:07 Method Of Arrival: Wheelchair cm10 15:07 Acuity: JOSE 3 cm10 Triage Assessment: 15:09 General: Appears in no apparent distress. comfortable, Behavior is calm, cooperative. cm10 Pain: Complains of pain in abdomen Pain does not radiate. Pain currently is 9 out of 10 on a pain scale. Quality of pain is described as crampy. Neuro: No deficits noted. Level of Consciousness is awake, alert, obeys commands, Oriented to person, place, time, situation, Appropriate for age. Respiratory: No deficits noted. Airway is patent Respiratory effort is even, unlabored, Respiratory pattern is regular, symmetrical. GI: Reports constipation, cramping, nausea. Historical: - Allergies: 15:09 Iodine; cm10 15:09 SHELLFISH; cm10 - PMHx: 15:09 Atrial fibrillation; COPD; High Cholesterol; Hypertensive disorder; cm10 - PSHx: 15:09 cardiac stents x3; cm10 - Immunization history:: Adult Immunizations up to date. - Infectious Disease History:: Denies. - Social history:: Smoking status: Patient denies any tobacco usage or history of. - Family history:: not pertinent. - Hospitalizations: : No recent hospitalization is reported. Screenin:48 [facility] ED Fall Risk Assessment (Adult) History of falling in the last 3 months, kc6 including since admission No falls in past 3 months (0 pts) Confusion or Disorientation No (0 pts) Intoxicated or Sedated No (0 pts) Impaired Gait No (0 pts) Mobility Assist Device Used No (0 pt) Altered Elimination No (0 pt) Score/Fall Risk Level 0 - 2 = Low Risk Oriented to surroundings. Abuse screen: Denies threats or abuse. Denies injuries from another. Nutritional screening: No deficits noted. Tuberculosis screening: No symptoms or risk factors identified. Assessment: 15:49 General: Appears in no apparent distress. uncomfortable, well groomed, well developed, kc6 Behavior is calm, cooperative, appropriate for age. Pain: Complains of pain in abdomen Quality of pain is described as crampy, dull. Neuro: Level of Consciousness is awake, alert, obeys commands, Oriented to person, place, time, situation, Appropriate for age. Cardiovascular: Capillary refill < 3 seconds. Respiratory: Airway is patent Trachea midline Respiratory effort is even, unlabored, Respiratory pattern is regular, symmetrical. GI: Abdomen is flat, non-distended, Last BM was April 19, 2024. Bowel sounds hypoactive in right upper quadrant, left upper quadrant, right lower quadrant and left lower quadrant Abdomen is tender to palpation X 4 quads. Reports anorexia, constipation, cramping, gaseousness, nausea, Patient currently denies diarrhea, vomiting. : No signs and/or symptoms were reported regarding the genitourinary system. EENT: No signs and/or symptoms were reported regarding the EENT system. Derm: No signs and/or symptoms reported regarding the dermatologic system. Skin is intact, is fragile, is thin, with poor turgor Skin is dry, Skin is pale, Skin temperature is warm. Musculoskeletal: No signs and/or symptoms reported regarding the musculoskeletal system. Circulation, motion, and sensation intact. Capillary refill < 3 seconds, Range of motion: intact in all extremities. 16:49 Reassessment: Patient appears in no apparent distress at this time. No changes from kc6 previously documented assessment. Patient and/or family updated on plan of care and expected duration. Pain level reassessed. Patient is alert, oriented x 3, equal unlabored respirations, skin warm/dry/pink. 17:49 Reassessment: Patient appears in no apparent distress at this time. No changes from kc6 previously documented assessment. Patient and/or family updated on plan of care and expected duration. Pain level reassessed. Patient is alert, oriented x 3, equal unlabored respirations, skin warm/dry/pink. Vital Signs: 15:07 BP 121 / 45; Pulse 63; Resp 18; Temp 97.3; Pulse Ox 100% on R/A; Weight 50.8 kg; Height cm10 5 ft. 0 in. ; Pain 9/10; 15:49 BP 123 / 46; Pulse 56; Resp 16 S; Pulse Ox 100% on R/A; kc6 18:06 BP 101 / 89; Pulse 63; Resp 15 S; Pulse Ox 95% on R/A; kc6 15:07 Body Mass Index 21.87 (50.80 kg, 152.4 cm) cm10 15:07 Pain Scale: Adult cm10 ED Course: 14:47 Patient arrived in ED. sj2 15:09 Triage completed. cm10 15:09 Arm band placed on left wrist. Patient placed in waiting room. cm10 15:11 Chucky Sofia MD is Attending Physician. rn 15:25 Laura Henry RN is Primary Nurse. kc6 15:26 Patient placed in an exam room, on a stretcher. ll1 15:28 CT Abd/Pelvis - Without Contrast In Process Unspecified. EDMS 15:48 Patient has correct armband on for positive identification. Bed in low position. Call kc6 light in reach. Side rails up X 1. Adult w/ patient. Pulse ox on. NIBP on. Door closed. Noise minimized. Lights dimmed. Warm blanket given. Pillow given. Diet: Patient is NPO. 15:48 Inserted saline lock: 22 gauge in right wrist, using aseptic technique. Blood kc6 collected. Flushed with 10 mL NS. Patient maintains SpO2 saturation greater than 95% on room air. 16:46 Charity Dowd MD is Hospitalizing Provider. rn Administered Medications: 15:47 Drug: Ondansetron IVP 4 mg IVP once; over 2 minutes Route: IVP; Site: right wrist; kc6 15:48 Drug: NS 0.9% IV 500 ml 500 ml IV at 1 bolus once; to be given as a bolus over 30 kc6 minutes Volume: 500 ml; Route: IV; Rate: 1 bolus; Site: right wrist; 18:17 Drug: Rocephin IV 1 grams IV at calculated rate once; Given slow IV push per pharmacy kc6 instructions Route: IV; Rate: calculated rate; Site: right wrist; 18:18 Drug: metroNIDAZOLE IVPB 500 mg 100 ml IVPB at 200 ml/hr once over 30 mins Volume: 100 kc6 ml; Route: IVPB; Rate: 200 ml/hr; Infused Over: 30 mins; Site: right wrist; Outcome: 16:47 Decision to Hospitalize by Provider. rn 19:31 Patient left the ED. lg3 Signatures: Dispatcher [employer] EDMS Chucky Sofia MD MD rn Able, Lacie, RN RN lg3 Courtney Harp RN RN ll1 Laura Henry RN RN kc6 Alethea Beltran RN RN cm10 Lewis Ramirez 2 Corrections: (The following items were deleted from the chart) 18:18 18:06 Pulse 63bpm; Resp 15bpm; Spontaneous; Pulse Ox 95% RA; kc6 kc6
--- NOTE | 2024-05-03 16:48 | EDPHYS ---
Physician Documentation [facility] Name: Patricia Tucker Age: 83 yrs Sex: Female : 1940 Arrival Date: 05/03/2024 Time: 14:42 Bed 2 Private MD: ED Physician Chucky Sofia HPI: 05/03 16:06 This 83 yrs old Female presents to ER via Wheelchair with complaints of Abdominal Pain, rn Constipation. 16:06 The patient presents with abdominal pain in the lower abdomen. Onset: The rn symptoms/episode began/occurred 1 week(s) ago. The symptoms do not radiate. Associated signs and symptoms: Pertinent positives: constipation, Pertinent negatives: chest pain, fever, hematuria, shortness of breath. The symptoms are described as achy, crampy. Modifying factors: The symptoms are alleviated by nothing, the symptoms are aggravated by touching the area. Severity of pain: At its worst the pain was moderate in the emergency department the pain is unchanged. The patient has not experienced similar symptoms in the past. 16:33 Patient reports constipation for the last week or so. Has tried enemas and laxatives rn and not working. Still passing gas. Reports abdominal bloating and left-sided abdominal pain. No blood in stool. Historical: - Allergies: 15:09 Iodine; cm10 15:09 SHELLFISH; cm10 - PMHx: 15:09 Atrial fibrillation; COPD; High Cholesterol; Hypertensive disorder; cm10 - PSHx: 15:09 cardiac stents x3; cm10 - Immunization history:: Adult Immunizations up to date. - Infectious Disease History:: Denies. - Social history:: Smoking status: Patient denies any tobacco usage or history of. - Family history:: not pertinent. - Hospitalizations: : No recent hospitalization is reported. ROS: 16:33 Constitutional: Negative for fever, chills, and weight loss, Cardiovascular: Negative rn for chest pain, palpitations, and edema, Respiratory: Negative for shortness of breath, cough, wheezing, and pleuritic chest pain, Abdomen/GI: Positive for abdominal pain and constipation MS/Extremity: Negative for injury and deformity, Skin: Negative for injury, rash, and discoloration, Neuro: Negative for headache, weakness, numbness, tingling, and seizure, Exam: 16:33 Constitutional: This is a well developed, well nourished patient who is awake, alert, rn and in no acute distress. Cardiovascular: Bradycardic, regular. No pulse deficits. Respiratory: No increased work of breathing, no retractions or nasal flaring. Abdomen/GI: soft, + left sided abd tenderness, no rebound Vital Signs: 15:07 BP 121 / 45; Pulse 63; Resp 18; Temp 97.3; Pulse Ox 100% on R/A; Weight 50.8 kg; Height cm10 5 ft. 0 in. ; Pain 9/10; 15:49 BP 123 / 46; Pulse 56; Resp 16 S; Pulse Ox 100% on R/A; kc6 18:06 BP 101 / 89; Pulse 63; Resp 15 S; Pulse Ox 95% on R/A; kc6 15:07 Body Mass Index 21.87 (50.80 kg, 152.4 cm) cm10 15:07 Pain Scale: Adult cm10 MDM: 15:11 Medical Screening Exam initiated rn 16:39 Differential diagnosis: bowel obstruction, diverticulitis, non-specific abd pain, rn Colitis, diverticulitis. Data reviewed: vital signs, nurses notes, lab test result(s), radiologic studies, CT scan, and as a result, I will admit patient. Consideration of Admission/Observation Patient was admitted/placed on observation. Escalation of care including admission/observation considered. Counseling: I had a detailed discussion with the patient and/or guardian regarding the historical points, exam findings, and any diagnostic results supporting the discharge/admit diagnosis, lab results, radiology results, the need for further work-up and treatment in the hospital. Response to treatment: the patient's symptoms have mildly improved after treatment, and as a result, I will admit patient. ED course: Patient with moderate colitis, no obstruction. Discussed case with Dr. Dowd, will admit for IV antibiotics and further care.. 05/03 15:13 Order name: CBC with Diff; Complete Time: 16: rn 05/03 15:13 Order name: CMP; Complete Time: 16: rn 05/03 15:13 Order name: Lipase; Complete Time: 16: rn 05/03 15:13 Order name: CT Abd/Pelvis - Without Contrast; Complete Time: 16: rn 05/03 15:13 Order name: IV Saline Lock; Complete Time: 15:47 rn 05/03 15:13 Order name: Labs collected and sent; Complete Time: 15:47 rn Administered Medications: 15:47 Drug: Ondansetron IVP 4 mg IVP once; over 2 minutes Route: IVP; Site: right wrist; kc6 15:48 Drug: NS 0.9% IV 500 ml 500 ml IV at 1 bolus once; to be given as a bolus over 30 kc6 minutes Volume: 500 ml; Route: IV; Rate: 1 bolus; Site: right wrist; 18:17 Drug: Rocephin IV 1 grams IV at calculated rate once; Given slow IV push per pharmacy kc6 instructions Route: IV; Rate: calculated rate; Site: right wrist; 18:18 Drug: metroNIDAZOLE IVPB 500 mg 100 ml IVPB at 200 ml/hr once over 30 mins Volume: 100 kc6 ml; Route: IVPB; Rate: 200 ml/hr; Infused Over: 30 mins; Site: right wrist; Disposition Summary: 05/03/24 16:47 Hospitalization Ordered Notes: Hospitalization Status: Inpatient Admission rn Provider: Charity Dowd [facility] Condition: Stable rn Problem: new rn Symptoms: have improved rn Bed/Room Type: Standard rn Room Assignment: 220(05/03/24 17:07) bd Diagnosis - Left sided colitis without complications rn Forms: - Medication Reconciliation Form rn - SBAR form rn - Leadership Thank You Letter rn Signatures: Dispatcher [employer] EDBee Eaton Roman, MD MD rn Campbell, Kaitlyn, RN RN kc6 Alethea Beltran RN RN cm10 Corrections: (The following items were deleted from the chart) 15:13 15:13 CBC+H.LAB.BRZ ordered. EDMS EDMS 15:13 15:13 COMPREHENSIVE METABOLIC PANEL+C.LAB.BRZ ordered. EDMS EDMS 15:13 15:13 LIPASE+C.LAB.BRZ ordered. EDMS EDMS 15:13 15:13 Abdomen Pelvis Wo Con+CT.RAD.BRZ ordered. EDMS EDMS 17:07 16:47 rn bd
[2024-05-03] MEDS ORDERED: METRONIDAZOLE 500mg IVPB 500 MG/100 ML BAG IV ONE (18:09)
[2024-05-03] MEDS ORDERED: CEFTRIAXONE 1000 MG/VIAL ONE (18:09)
[2024-05-03] MEDS ORDERED: ACETAMINOPHEN 500 MG TAB PO PRN (19:44)
[2024-05-03] MEDS: BISACODYL 10 MG RECTAL SUPP PR ONE (19:44)
[2024-05-03 19:55] VITALS: BMI 22.6
[2024-05-03] MEDS: DULERA 100/5 (MOMETASONE/FORMOTEROL) INHALER IH SCH (20:33)
[2024-05-03] MEDS: MAGNESIUM HYDROXIDE 8% 30 ML PO ONE (20:34)
[2024-05-03] MEDS: GABAPENTIN 300 MG CAP PO SCH (20:34)
[2024-05-03] MEDS: APIXABAN 2.5 MG TABLET PO SCH (20:34)
[2024-05-03] MEDS: MORPHINE 4 MG/ML SYR IV PRN (20:34)
[2024-05-03] MEDS: ONDANSETRON 4 MG/2 ML VIAL IV PRN (20:42)
[2024-05-04] MEDS: METRONIDAZOLE 500mg IVPB 500 MG/100 ML BAG IV SCH (00:53)
[2024-05-04 04:41] LABS: Absolute Eosinophils 0.2 K/uL (0-0.5); Absolute Lymphocytes (CBC) 1.2 K/uL (0.7-4.9); Absolute Monocytes 1.2 K/uL (0.1-1.3); Absolute Neutrophil 6.2 K/uL (1.8-8.0); Basophils % 0.3 % (0-1.3); Eosinophils % 1.7 % (0-4.4); Hematocrit 25.5 % (36.0-45.0); Hemoglobin 8.6 g/dL (12.0-15.0); Lymphocytes % 13.3 % (15.3-44.8); MCH 29.7 pg (27.0-35.0); MCHC 33.6 g/dL (32.0-36.0); MCV 88.3 fL (80-100); MPV 8.3 fL (7.6-11.3); Monocytes % 14.2 % (3.3-12.3); Neutrophils % 70.5 % (41.7-73.7); Platelets 336 thou/uL (152-406); RBC Red Blood Cell Count 2.89 M/uL (3.86-4.86); Red Cell Distribution Width 15.2 % (12.1-15.2)
[2024-05-04 04:52] LABS: Anion Gap 9.7 mEq/L (5.0-15.0); Potassium 3.7 mEq/L (3.5-5.1)
--- NOTE | 2024-05-04 04:58 | HP ---
Date of Admission: 05/03/2024 Chief Complaint: Abdominal pain and constipation. History Of Present Illness: This is an 83-year-old very pleasant female patient who has presented to emergency room with lower abdominal pain and constipation for last 2 weeks. The patient has been tr charly some ewzt-wzn-grnyyjw stool softener, laxative, and even took a Fleet enema without any relief. Her last bowel movement was 1 week ago. In last few days, she started to have left lower quadrant a bdominal pain. Denies any fever, chills, nausea, vomiting. She has been having very poor appetite a long with these symptoms. Her normal bowel habit is 1 bowel movement every 2-3 days for all her life , but in last 2 weeks she is having this really bad problem with constipation and now associated with left lower quadrant abdominal pain. She came into emergency room after she was evaluated, she was a dmitted to the hospital with colitis problem. The patient recently fell down a little over 2 weeks a go as she was walking, lost her balance and fell on a concrete surface and suffered fracture of the r ight proximal tibia for which she saw Dr. Pratt and he has advised conservative treatment with velma n medication and no weightbearing to right lower extremity for 6 weeks. The patient was taking trama dol as prescribed by Dr. Pratt, which she stopped it about 2 weeks ago as she reports that she madrid s not need it for pain control anymore. I saw her in the emergency room this evening for this admiss ion. Allergies: VALSARTAN CAUSING ANGIOEDEMA, IODINE CAUSING HIVES, RECLAST CAUSING BONE PAIN, AND SHELLF MJ CAUSED HIVES. Medications: Amiodarone 100 mg daily, Eliquis 2.5 mg 2 times a day, Lumigan eye drops, Alphagan eye drops, Symbicort 2 puffs 2 times a day, omeprazole 40 mg daily, olmesartan 20 mg daily, rosuvastatin 20 mg daily at bedtime, furosemide 20 mg daily as needed for leg swelling, gabapentin 300 mg daily at bedtime. Review of Systems: Musculoskeletal: As mentioned above. GI: As mentioned above. All other systems reviewed and negative. Past Medical History: Significant for glaucoma, COPD, hypertension, hyperlipidemia, coronary artery disease, carotid artery stenosis, hemangioma of liver, gallstones, renal cyst, fibromyalgia, anemia, osteoporosis. Past Surgical History: Cataract surgery, tonsillectomy, coronary artery stent placement in March 2022 and April 2022, carotid artery stent placement in right carotid in December 2020, , hyst erectomy, back surgery, surgery for wrist fracture, breast implant which was silicon implant to start with and subsequently it was changed to saline implant. Family History: Father , details unknown. Mother , had colon cancer. Social History: Negative for smoking and alcohol use. Physical Examination: Vital Signs: Blood pressure 121//45, pulse 63, respiratory rate 18, oxygen saturation 100%, temperat ure 97.3, height 5 feet, weight 50.8 kg. General: Awake, alert, oriented, not in distress. HEENT: Head atraumatic, normocephalic. Conjunctivae nonerythematous. Sclerae white. Mouth, no thr ush or edema noted. Ears/Nose, no mass, lesion, discharge noted. Neck: Supple. No JVD, lymph nodes, bruit, thyromegaly noted. Lungs: Bilateral good equal air entry. Clear to auscultation. No rhonchi. No rales. Heart: Normal heart sounds, no murmur or gallop. Abdomen: Abdomen soft. No guarding, rigidity, has moderate tenderness in left lower quadrant. No r ebound tenderness. Bowel sounds normoactive. No hepatosplenomegaly. No bruit. Extremities: Right lower extremity has knee brace present. Skin: No rash, ulcer, cellulitis. Lymphatics: No lymph node enlargement in neck, supraclavicular, infraclavicular region. Neuro: No focal neurological deficit. Chest: Unremarkable. External Genitalia: Deferred. Rectal: Deferred. Laboratory Data: White count 12.8, hemoglobin 9.9, platelets 408. Sodium 129, potassium 3.3, chlori de 96, bicarb 26, BUN 14, creatinine 1.24, glucose 142. Liver function tests unremarkable. Lipase 3 4. CAT scan of the abdomen and pelvis shows moderate left-sided colitis and gallstones. Impression: 1.Colitis. 2.Constipation. 3.Hyponatremia. 4.Anemia. 5.Hypokalemia. 6.Hypertension. 7.Coronary artery disease. 8.Hyperlipidemia. 9.Chronic obstructive pulmonary disease. Plan: We will go ahead and admit the patient to hospital for further evaluation and management of th is problem. The patient is appropriate for inpatient and is expected to spend [address] [facility]. For her colitis, we will give her antibiotic which is ceftriaxone and metronidazole per order. P ain medications will be given as needed for pain control. For her constipation, I will start her on Senokot-S 2 tablets daily. Give Dulcolax rectal suppository tonight and milk of magnesia 30 cc p.o. x1 dose tonight. For hyponatremia, no need for further intervention except monitoring. For anemia, no need for further intervention except monitoring. For hypokalemia, potassium will be replaced and we will follow up on blood work tomorrow. For hypertension, continue antihypertensive medication, mo nitoring of blood pressure, if necessary adjust medication. For hyperlipidemia, we will not need any further intervention and we will hold her statin therapy at this point. For her gastroesophageal re flux disease, we will continue her proton pump inhibitor therapy. For COPD, continue inhaler per ord er. Plan of treatment discussed with the patient and I will see her tomorrow morning for followup. Total time spent 80 minutes that includes review of today's emergency room visit record, review of [facility] office visit record from 04/04/2024, communication with the ER physician, performing today's evaluation and management. ROSELINE/HARRISON Voice ID: [id number]
[2024-05-04] MEDS: PANTOPRAZOLE 40MG TABLET PO SCH (06:17)
[2024-05-04] MEDS: DOCUSATE NA/SENNA CONC 1 TAB PO SCH (08:17)
[2024-05-04] MEDS: BISACODYL 10 MG RECTAL SUPP PR ONE (08:18)
[2024-05-04] MEDS: CEFTRIAXONE 1,000 MG in NA CHLORIDE 0.9% 50 ML IVPB SCH (08:18)
[2024-05-04] MEDS: AMIODARONE HCL 200 MG TAB PO SCH (08:18)
[2024-05-04] MEDS ORDERED: VALSARTAN 80 MG TAB PO SCH (09:00)
[2024-05-04] MEDS: TRAMADOL HCL 50 MG TAB PO PRN (18:14)
[2024-05-04] MEDS: MORPHINE 2 MG/ML SYR IV PRN (22:02)
--- NOTE | 2024-05-04 23:16 | PN ---
Date of Progress Note: 05/04/2024 Subjective: The patient was seen this morning for followup. She was lying in bed, not in distress. No new complaints or problems reported. She has not had any bowel movement. She did not get any Du lcolax suppository which was ordered last night, but nurse did not give it and she did get milk of ma gnesia, but has not had any bowel movement with that. Her abdominal pain is better than yesterday. No nausea, vomiting. She did get a dose of morphine for pain, but she did not feel well after taking morphine and she did not have any trouble taking tramadol as outpatient, did not have any side effec t. Objective: Vital Signs: Reviewed. HEENT: Unremarkable. Lungs: Clear to auscultation. Heart: Sounds normal. Abdomen: Soft. Bowel sounds normal. No guarding, rigidity, distention. Presence off mild tenderne ss in left lower quadrant. No rebound tenderness. Extremities: No leg edema. Laboratory Data: White count 8.8, hemoglobin 8.6, platelets 336. Sodium 130, potassium 3.7, chlorid e 99, bicarb 25, BUN 19, creatinine 0.99, glucose 123. Impression: 1.Colitis. 2.Constipation. 3.Anemia. 4.Hyponatremia. 5.Hypertension. Plan: I have asked the patient to have her bring her home supply of olmesartan and order was written to use 1 tablet daily as needed for systolic blood pressure more than 150. We will continue current antibiotic which is ceftriaxone and metronidazole. We will go ahead and continue her clear liquid diet today. Ambulation was encouraged and we will give tramadol 50 mg 4 times a day as needed for pain. Senokot-S 2 tablets daily will be given along with that. We will give 1 dose of Dulcolax rectal suppository today and I will see her tomorrow for followup. Depending on her condition tomor row, we will decide if she can go home tomorrow or not. ROSELINE/MODL Voice ID: [id number] Report ID: [id number]
[2024-05-05 07:42] LABS: Absolute Eosinophils 0.1 K/uL (0-0.5); Absolute Lymphocytes (CBC) 0.9 K/uL (0.7-4.9); Absolute Monocytes 1.2 K/uL (0.1-1.3); Absolute Neutrophil 4.2 K/uL (1.8-8.0); Basophils % 0.4 % (0-1.3); Eosinophils % 2.1 % (0-4.4); Hemoglobin 7.4 g/dL (12.0-15.0); Lymphocytes % 14.5 % (15.3-44.8); MCH 28.6 pg (27.0-35.0); MCHC 32.1 g/dL (32.0-36.0); MCV 89.1 fL (80-100); MPV 8.3 fL (7.6-11.3); Monocytes % 18.1 % (3.3-12.3); Neutrophils % 64.9 % (41.7-73.7); Platelets 312 thou/uL (152-406); RBC Red Blood Cell Count 2.58 M/uL (3.86-4.86); Red Cell Distribution Width 15.1 % (12.1-15.2)
[2024-05-05 08:03] LABS: Albumin 2.4 g/dL (3.4-5.0); Albumin/Globulin Ratio 0.8 (1.1-1.8); Anion Gap 6.8 mEq/L (5.0-15.0); Bilirubin Total 0.4 mg/dL (0.2-1.0); Globulin 3.1 g/dL (2.3-3.5); Magnesium 2.3 mg/dL (1.6-2.4); Potassium 3.8 mEq/L (3.5-5.1); Protein, Total 5.5 g/dL (6.4-8.2)
--- NOTE | 2024-05-05 08:45 | RAD REPORT ---
EXAMINATION: CT Abdomen Pelvis Wo Contrast CLINICAL INDICATION: Female, 83 years old. Abdominal pain TECHNIQUE: CT abdomen and pelvis was performed, without IV contrast, as per department protocol. Axia l, sagittal and coronal reconstructions were obtained. One or more of the following dose reduction techniques were used: Automated exposure control, adjustment of the mA and kV according to the patien t size, and iterative reconstruction. Unless otherwise specified, incidental findings do not require dedicated imaging follow-up. COMPARISON: 05/03/2024 FINDINGS: The lack of intravenous contrast limits the sensitivity of this exam for evaluation of solid visceral organs, vascular structures, and retroperitoneum. LOWER CHEST: The visualized lung bases are clear. Dense mitral valve calcifications. LIVER: Normal in size and contour. Lobulated expansile fluid density left liver lobe inferior 4.1 cm cystic lesion appears stable. No other suspicious focal lesion. BILIARY SYSTEM: Cholelithiasis and layering sludge. The bladder is moderately distended. SPLEEN: Normal size. No focal lesion. PANCREAS: No mass, ductal dilation, or toan-pancreatic fluid. ADRENALS: Normal; no mass. KIDNEYS AND URETERS: Normal size and contour. No hydronephrosis. . URINARY BLADDER: Normal contour. GASTROINTESTINAL TRACT: Moderate stool retention in the proximal colon, with air-fluid level along th e splenic flexure. Similar long segment of wall thickening and relative caliber attenuation of the mid descending colon. Mildly progressive adjacent fat stranding. No evidence of bowel obstruction, si gnificant free fluid, free air or abscess. APPENDIX: Appendix not visualized, but no inflammatory changes in region of appendix. LYMPH NODES: No lymphadenopathy. MUSCULOSKELETAL: No acute or suspicious osseous abnormality. ADDITIONAL FINDINGS: None. IMPRESSION: Persistent long segment of wall thickening and relative caliber attenuation of the mid descending col on with mildly progressive adjacent fat stranding, suggesting persistent or worsening colitis, favored to be of infectious or inflammatory etiology. Moderate stool burden in the more proximal colon, with some air-fluid level at the level of the splen ic flexure, this may suggest a degree of ileus. Other stable findings as above.
--- NOTE | 2024-05-05 10:02 | PN ---
Date of Progress Note: 05/05/2024 Subjective: The patient was seen this morning for followup. Last night, nurse contacted me and info rmed me that the patient was having lot of abdominal pain and I talked to her on the phone and she re ported that her abdominal pain had gotten worse last night and it was as bad as what it was when she came into the emergency room. Denies any nausea, vomiting. So, tramadol, which was ordered yesterda y during daytime was not effective to control pain, so we discontinued tramadol and she agreed to try morphine because she reported that she just felt unusual after taking morphine just for few seconds when she had tried it couple of days ago, but yesterday evening, she was willing to try it, so morphi ne was ordered and this morning a CAT scan and blood work was done. I saw her this morning. She was actually smiling when I saw her and reported that morphine actually has helped to improve her pain a nd she did use 2 doses of morphine overnight. The patient remains on liquid diet. Objective: Vital Signs: Reviewed. She remains afebrile. HEENT: Unremarkable. Lungs: Clear to auscultation. Heart: Sounds normal. Abdomen: Soft. Bowel sounds normal. No distention. No guarding, no rebound tenderness. The patie nt has mild tenderness in the left lower quadrant, which is actually less compared to before. There is no rebound tenderness. Extremities: No leg edema. Laboratory Data: White count 6.5, hemoglobin 7.4, platelets 312. Sodium 125, potassium 3.8, chlorid e 96, bicarb 26, BUN 20, creatinine 1, glucose 107. Liver function tests unremarkable. Magnesium 2. 3. CAT scan of the abdomen and pelvis without contrast shows changes of colitis on the left side, un changed from before. No complications like abscess, perforation, or free air. There is some evidenc e of ileus, but no evidence of bowel obstruction, and changes of colitis remains unchanged from the p revious CAT scan which was done 3 days ago when she came into emergency room. Impression: 1.Colitis. 2.Constipation. 3.Hyponatremia. 4.Anemia. 5.Right tibia fracture. Plan: We will go ahead and continue current antibiotic which is ceftriaxone and metronidazole. We w ill continue to keep her on a liquid diet. The patient has not had a bowel movement, but at the same time, she has not had good amount of food also in almost 10 days and now she is on liquid diet. She is nonweightbearing to the right leg because of the tibia fracture and we will continue current pain medication. We will go ahead and request consultation from Dr. Rizzo from General Surgery and I hav e discussed details with him as well. I will see her tomorrow for followup. The patient reports rhett t she [facility] basis for her anemia and gets some kind of inje ction, so I will review that information also over this weekend. We will repeat blood work tomorrow and I will see her in the morning for followup. ROSELINE/MODL Voice ID: [id number] Report ID: [id number]
--- NOTE | 2024-05-05 14:52 | CON ---
Date of Consultation: 05/05/2024 Reason For Consultation: Abdominal pain. History Of Present Illness: The patient is an 83-year-old female who was admitted by Dr. Dowd with h istory of lower abdominal pain and constipation for the last 2 weeks or so. Her last bowel movement was 10 days ago. She has tried stool softeners, laxative, and Fleet Enema without much relief. She does have a tibial fracture which is being managed nonoperatively by Dr. Pratt, which occurred freida roximately 2 weeks ago and she has been on pain medicine for that. She currently denies any nausea o r vomiting, but she has not had any significant bowel movements recently and no flatus. No sore thro at, runny nose, cough, headaches, dizziness. No chest pain. No fevers or chills. Review of systems otherwise unremarkable. The patient was admitted 3 days ago and had colitis and the followup CT ze wed slight worsening of it with mild ileus and I was asked to evaluate. Past Medical History: Glaucoma, COPD, high blood pressure, coronary artery disease, carotid artery s tenosis, multiple hemangioma of the liver, fibromyalgia. Past Surgical History: Cataract surgery, coronary artery stent placement, tonsillectomy, carotid art teresa stent placement, , hysterectomy, back surgery, wrist surgery, breast implant. Allergies: VALSARTAN, IODINE, SHELLFISH. Social History: The patient does not smoke or drink. Family History: Significant for colon cancer in the mother. Father, history is unknown. Physical Examination: Vital Signs: Stable. She is afebrile. General: She is awake, alert, oriented x3. Head and Neck: No masses. Chest: Clear. Heart: S1, S2. Abdomen: Soft, distended. Tenderness with voluntary guarding in the left middle and lower quadrant. No rigidity. Extremities: Adequately perfused. Nontender. Neuro: Nonfocal. Laboratory Data: White count on admission was 12.8, currently 6.5. Chemistry reviewed. She does johansen ve hyponatremia; otherwise, her blood work is unremarkable. CT of the abdomen and pelvis reviewed. The patient has descending colon colitis with wall thickening in the mid descending colon with some m ild progressive adjacent fat stranding favored to be infectious or inflammatory etiology. Patient do es have moderate stool burden in the proximal colon and some air-fluid level at the splenic flexure s uggesting possibly ileus. No other acute finding. Assessment: 83-year-old female with multiple medical problems, recent fracture, and colitis. Recommendations: Continue IV antibiotics as ordered. Serial abdominal exam. We will get an abdomin al x-ray tomorrow and make sure that the patient is not worsening at this time. Conservative treatme nt should suffice. Hopefully, the patient will improve. Perhaps consideration for steroid therapy w ill be considered if patient does not improve in the next couple of days. The plan of care was discu ssed with the patient as well as Dr. Dowd. /MODTorin Voice ID: [id number] Report ID: [id number]
[2024-05-05] MEDS: SODIUM CHLORIDE 1 GM TAB ONE (15:12)
[2024-05-05] MEDS: SODIUM CHLORIDE 1 GM TAB PO SCH (15:20)
[2024-05-05 21:31] VITALS: O2SAT 97
[2024-05-06] MEDS: NA CHLORIDE 0.9% 100 ML ONE (00:27)
[2024-05-06 08:18] LABS: Absolute Eosinophils 0.2 K/uL (0-0.5); Absolute Lymphocytes (CBC) 0.9 K/uL (0.7-4.9); Absolute Neutrophil 3.9 K/uL (1.8-8.0); Basophils % 0.6 % (0-1.3); Eosinophils % 2.8 % (0-4.4); Hematocrit 23.2 % (36.0-45.0); Hemoglobin 7.6 g/dL (12.0-15.0); Lymphocytes % 15.2 % (15.3-44.8); MCH 29.1 pg (27.0-35.0); MCHC 32.9 g/dL (32.0-36.0); MCV 88.3 fL (80-100); MPV 8.2 fL (7.6-11.3); Monocytes % 16.5 % (3.3-12.3); Neutrophils % 64.9 % (41.7-73.7); Nucleated Red Blood Cells % 0.1 % (0-0); Platelets 335 thou/uL (152-406); RBC Red Blood Cell Count 2.63 M/uL (3.86-4.86); Red Cell Distribution Width 15.3 % (12.1-15.2)
[2024-05-06 08:30] LABS: Anion Gap 8.7 mEq/L (5.0-15.0); Magnesium 1.9 mg/dL (1.6-2.4); Potassium 3.7 mEq/L (3.5-5.1)
[2024-05-06 09:09] VITALS: BP 104/39; TEMP 97.4
--- NOTE | 2024-05-06 11:19 | PN ---
Date of Progress Note: 05/06/2024 Subjective: The patient is awake, alert, tolerating a clear liquid. She has not had a bowel movemen t and appears to be passing gas. She states that she feels much better. No nausea, no vomiting, and no abdominal pain. Objective: Her vital signs are stable. She is afebrile. Last bowel movement was on May 03. Abdomen is soft, nondistended, nontender. Positive bowel sounds. Laboratory Data: Reviewed. White count is 6. There is no left shift. H and H is low, but stable. Chemistry reviewed. Sodium has come up to 130. Assessment: Colitis with ileus, improving. Recommendations: Advance diet if tolerated. The patient can be discharged home on oral antibiotics. Follow up with Dr. Dowd. There is no need for any surgical intervention at this time. Plan of car e discussed with Dr. Dowd and the patient. /MODL Voice ID: [id number] Report ID: [id number]
--- NOTE | 2024-05-07 00:31 | DS ---
Date of Discharge: 05/06/2024 Disposition: Discharged to go home. Physical Examination: HEENT: Unremarkable. Lungs: Clear to auscultation. Heart: Sounds normal. Abdomen: Soft. Bowel sounds normal. No guarding, rigidity, tenderness, distention. Extremities: No leg edema. Discharge Medications And Instructions: 1.Continue all prior home medication except following changes. 2.Do not take any olmesartan. 3.Start Ceftin 250 mg take 1 tablet by mouth 2 times a day with food for 1 week. 4.Start metronidazole 250 mg take 1 tablet by mouth 3 times a day with food for 1 week. 5.Follow up at my office next week on Wednesday, which is 05/09/2024. 6.Use sjay-nyn-tohibye medication for constipation as below. Senokot S 2 tablets 2 times a day. Mi raLAX 17 g powder mixed with water, drink it daily. 7.Diet. Avoid red meat, pork, hernandez, fried food, etc., and patient may eat rice, pasta, potatoes, b read, etc. and I have gone over these diet instructions with her personally. Laboratory Data: Upon admission on 05/03/2024, white count 12.8, hemoglobin 9.9, platelets 408. Low est hemoglobin was yesterday 7.4. Today, white count 6, hemoglobin 7.6, platelets 335. Initial chem istry on 05/03/2024, sodium 129, potassium 3.3, chloride 96, bicarb 26, BUN 14, creatinine 1.24, gluc ose 142. Liver function tests unremarkable. Lipase 34. Lowest sodium was yesterday 125. Today, so dium 130, potassium 3.7, chloride 99, bicarb 26, BUN 16, creatinine 0.82, glucose 139. Magnesium 1.9 . Discharge Diagnoses: 1.Colitis. 2.Constipation. 3.Hyponatremia. 4.Hypokalemia. 5.Anemia. 6.Hypertension. 7.Coronary artery disease. 8.Hyperlipidemia. 9.Chronic obstructive pulmonary disease. Hospital Course: This is an 83-year-old pleasant female patient, admitted to the hospital with abdom inal pain and constipation. Please see dictated H and P for more information. After patient was miguel ángel luated in the emergency room, she was admitted to the hospital with colitis and constipation problem. Her CAT scan had shown evidence of colitis in the descending colon. The patient was started on emp iric antibiotic, which was ceftriaxone and metronidazole and her symptoms were improving until day be fore yesterday. During evening hours, her pain got worse and at that time we ordered some morphine, which worked very well on her and yesterday we repeated another CAT scan of abdomen and blood work. Dr. Rizzo from General Surgery was consulted and he did not have any other recommendation at this poi nt. I did discuss details with him today and today when I saw the patient, she was feeling much bett er. Her pain had improved significantly as she reported, she is tolerating clear liquid diet very we ll that we have her on and we will now advance her diet as stated above. The patient denies any naus ea, vomiting. No fever. Total time spent today, 40 minutes. ROSELINE/HARRISON Voice ID: [id number] Report ID: [id number]
== END 2024-05-06 11:47 | disposition home or self-care (01) | DRG 386 ==
LOC: ER 14:42 → ERHOLD 16:48 → 2ND 18:43
PROVIDERS: ADMIT Internal Medicine; ATTEND Internal Medicine
DX: K51.50 Left sided colitis without complications (principal); E87.1 Hypo-osmolality and hyponatremia; K56.7 Ileus, unspecified; K59.00 Constipation, unspecified; I48.91 Unspecified atrial fibrillation; J44.9 Chronic obstructive pulmonary disease, unspecified; E78.00 Pure hypercholesterolemia, unspecified; E87.6 Hypokalemia; I10 Essential (primary) hypertension; K21.9 Gastro-esophageal reflux disease without esophagitis; K80.20 Calculus of gallbladder without cholecystitis without obstruction; I25.10 Atherosclerotic heart disease of native coronary artery without angina pectoris; S82.201D Unspecified fracture of shaft of right tibia, subsequent encounter for closed fracture with routine healing; Z95.5 Presence of coronary angioplasty implant and graft; Z79.01 Long term (current) use of anticoagulants; Z91.013 Allergy to seafood; Z79.899 Other long term (current) drug therapy; Z90.710 Acquired absence of both cervix and uterus
CPT/HCPCS: 36415; 74176; 80048; 80053; 83690; 83735; 85025; 96374; 96375; 99284; J0696; J2270; J2405; J3535; J7040

== ENCOUNTER 2024-05-07 16:57 | Inpatient (IN) | payer OTHER, MEDICARE ==
[2024-05-07] MEDS ORDERED: MORPHINE 4 MG/ML SYR ONE (17:22)
[2024-05-07] MEDS ORDERED: NA CHLORIDE 0.9% 1,000 ML ONE (17:22)
[2024-05-07] MEDS ORDERED: ONDANSETRON 4 MG/2 ML VIAL ONE (17:22)
[2024-05-07 17:30] LABS: Absolute Eosinophils 0.1 K/uL (0-0.5); Absolute Lymphocytes (CBC) 0.8 K/uL (0.7-4.9); Absolute Monocytes 1.1 K/uL (0.1-1.3); Absolute Neutrophil 7.8 K/uL (1.8-8.0); Basophils % 0.4 % (0-1.3); Eosinophils % 1.1 % (0-4.4); Hematocrit 24.4 % (36.0-45.0); Hemoglobin 8.2 g/dL (12.0-15.0); Lymphocytes % 8.5 % (15.3-44.8); MCH 29.6 pg (27.0-35.0); MCHC 33.6 g/dL (32.0-36.0); MCV 88.1 fL (80-100); Monocytes % 11.1 % (3.3-12.3); Neutrophils % 78.9 % (41.7-73.7); Nucleated Red Blood Cells % 0.1 % (0-0); Platelets 381 thou/uL (152-406); RBC Red Blood Cell Count 2.76 M/uL (3.86-4.86); Red Cell Distribution Width 15.5 % (12.1-15.2)
[2024-05-07 17:37] LABS: PT Prothrombin Time 22.1 SECONDS (9.4-12.5); PTT, Activated Partial Thromb 29.2 SECONDS (24.3-36.9); Protime INR 2.01
[2024-05-07 17:48] LABS: Albumin 2.5 g/dL (3.4-5.0); Albumin/Globulin Ratio 0.8 (1.1-1.8); Anion Gap 9.7 mEq/L (5.0-15.0); Bilirubin Total 0.4 mg/dL (0.2-1.0); Globulin 3.3 g/dL (2.3-3.5); Potassium 3.7 mEq/L (3.5-5.1); Protein, Total 5.8 g/dL (6.4-8.2); Troponin High Sensitivity 5.9 pg/mL (<58.9)
--- NOTE | 2024-05-07 17:51 | RAD REPORT ---
EXAMINATION: CT ABDOMEN AND PELVIS WITHOUT CONTRAST CLINICAL INDICATION: Female, 83 years old.Abdominal distention;Abd pain TECHNIQUE: CT abdomen and pelvis was performed, without IV contrast, as per department protocol. Axia l, sagittal and coronal reconstructions were obtained. One or more of the following dose reduction techniques were used: Automated exposure control, adjustment of the mA and/or kV according to the pat ient size, and/or iterative reconstruction. Unless otherwise specified, incidental findings do not require dedicated imaging follow-up. [id number]. IV CONTRAST: Not administered. COMPARISON: 05/05/2024 FINDINGS: The lack of intravenous contrast limits the sensitivity of this exam for evaluation of solid visceral organs, vascular structures, and retroperitoneum. LOWER CHEST: Bilateral ruptured breast prostheses. Coronary calcifications. Hiatal hernia. LIVER: Low-density lesion left hepatic lobe is benign. GALLBLADDER/BILE DUCTS: Cholelithiasis. Similar distended gallbladder but no pericholecystic inflamma tory changes.? PANCREAS: No mass, ductal dilation, or toan-pancreatic fluid. SPLEEN: Normal size. No focal lesion. ADRENALS: Normal; no mass. KIDNEYS AND URETERS: Normal size and contour. No hydronephrosis. URINARY BLADDER: Normal contour. GASTROINTESTINAL TRACT: There is likely inspissated stool at the mid sigmoid with upstream bowel obst ruction. The transverse colon measures over 7 cm. PERITONEUM: No free fluid. ABDOMINAL AORTA AND OTHER VESSELS: Normal caliber aorta and IVC. Severe atherosclerosis. REPRODUCTIVE ORGANS: No pathologic process. MUSCULOSKELETAL: No acute or suspicious osseous abnormality. ADDITIONAL FINDINGS: None. IMPRESSION: Dilated colon to the level of the mid sigmoid where there is inspissated stool that could be impacted and causing a colonic obstruction.
--- NOTE | 2024-05-07 18:34 | ER ---
Nurse's Notes [facility] Name: Patricia Tucker Age: 83 yrs Sex: Female : 1940 Arrival Date: 05/07/2024 Time: 16:57 Bed 2 Private MD: Diagnosis: Intestinal obstruction, abdominal pain Presentation: 05/07 17:01 Chief complaint: EMS states: N/V and abdominal pain x1 week. Recently hospitalized for rs5 colitis at this facility, discharged home yesterday. Pt states "I haven't had a bowel movement in two weeks". Coronavirus screen: At this time, the client does not indicate any symptoms associated with coronavirus-19. Ebola Screen: No symptoms or risks identified at this time. Initial Sepsis Screen: Does the patient meet any 2 criteria? No. Patient's initial sepsis screen is negative. Does the patient have a suspected source of infection? No. Patient's initial sepsis screen is negative. Risk Assessment: Do you want to hurt yourself or someone else? Patient reports no desire to harm self or others. Onset of symptoms was May 07, 2024. 17:01 Method Of Arrival: EMS: [facility] rs5 17:01 Acuity: JOSE 3 rs5 17:01 Care prior to arrival: IV initiated. 18 GA, in the left antecubital area. rs5 Historical: - Allergies: 17:03 Iodine; rs5 17:03 SHELLFISH; rs5 - PMHx: 17:03 Atrial fibrillation; COPD; High Cholesterol; Hypertensive disorder; rs5 - PSHx: 17:03 cardiac stents x3; rs5 - Immunization history:: Adult Immunizations up to date. - Infectious Disease History:: Denies. - Social history:: Smoking status: Patient denies any tobacco usage or history of. Screenin:01 [facility] ED Fall Risk Assessment (Adult) History of falling in the last 3 months, rs5 including since admission No falls in past 3 months (0 pts) Confusion or Disorientation No (0 pts) Intoxicated or Sedated No (0 pts) Impaired Gait Yes (1 pt) Mobility Assist Device Used Yes (1 pt) Altered Elimination Yes (1 pt) Score/Fall Risk Level 3 or more points = High Risk Oriented to surroundings, Maintained a safe environment. Abuse screen: Denies threats or abuse. Nutritional screening: No deficits noted. Tuberculosis screening: No symptoms or risk factors identified. Assessment: 17:01 General: Appears distressed, uncomfortable, Behavior is cooperative. Pain: Complains of rs5 pain in abdomen Pain currently is 8 out of 10 on a pain scale. Quality of pain is described as aching, Is continuous. Neuro: Level of Consciousness is awake, alert, obeys commands, Oriented to person, place, time, situation. Cardiovascular: Patient's skin is warm and dry. Respiratory: Airway is patent Respiratory effort is even, unlabored, Respiratory pattern is regular, symmetrical. GI: Abdomen is round non-distended, Abd is soft and non tender X 4 quads. Reports constipation, nausea. : No signs and/or symptoms were reported regarding the genitourinary system. EENT: No signs and/or symptoms were reported regarding the EENT system. Derm: Skin is intact, Skin is pink, warm \\T\\ dry. Musculoskeletal: Range of motion: intact in all extremities. 17:40 Reassessment: Patient and/or family updated on plan of care and expected duration. Pain rs5 level reassessed. Patient is alert, oriented x 3, equal unlabored respirations, skin warm/dry/pink. 19:04 Reassessment: Patient and/or family updated on plan of care and expected duration. Pain rs5 level reassessed. Patient is alert, oriented x 3, equal unlabored respirations, skin warm/dry/pink. 19:30 General: Appears in no apparent distress. uncomfortable, Behavior is calm, cooperative. al5 Neuro: Level of Consciousness is awake, alert, obeys commands, Oriented to person, place, time, situation. Cardiovascular: Capillary refill < 3 seconds Patient's skin is warm and dry. Respiratory: Airway is patent Respiratory effort is even, unlabored, Respiratory pattern is regular, symmetrical. GI: Abdomen is round non-distended, NGT in place, to suction. Site clean. Reports nausea. : No signs and/or symptoms were reported regarding the genitourinary system. EENT: No signs and/or symptoms were reported regarding the EENT system. Derm: Skin is intact, Skin is pink, warm \\T\\ dry. normal. Musculoskeletal: Reports R foot fracture prior to arrival. Vital Signs: 17:01 BP 128 / 52; Pulse 60; Resp 17; Pulse Ox 98% on R/A; rs5 18:01 BP 125 / 74; Pulse 66; Resp 17; Pulse Ox 99% on R/A; rs5 19:05 BP 117 / 67; Pulse 74; Resp 17; Pulse Ox 98% on R/A; rs5 19:32 BP 129 / 50; Pulse 62; Resp 16; Pulse Ox 100% on R/A; al5 ED Course: 17:00 Patient arrived in ED. eb 17:00 Sofia Mims MD is Attending Physician. sp3 17:01 Philippe Coker, ARSEN is Primary Nurse. rs5 17:01 No provider procedures requiring assistance completed. rs5 17:01 Patient has correct armband on for positive identification. Placed in gown. Bed in low rs5 position. Call light in reach. Side rails up X2. 17:03 Triage completed. rs5 17:04 EKG done, by ED staff, reviewed by Sofia Mims MD. em1 17:38 CT Abd/Pelvis - Without Contrast In Process Unspecified. EDMS 18:34 Javier Dowd MD is Hospitalizing Provider. sp3 18:53 NGT: inserted 12 Fr. via left nare. verified placement of air over stomach, verified mb9 return of gastric contents, Patient tolerated well. 20:26 Patient admitted, IV remains in place. al5 20:26 Provided Education on: need for admit. al5 Administered Medications: 17:20 Drug: NS 0.9% IV 1000 ml IV at 1000 ml once; to be given as a bolus over 60 minutes rs5 Route: IV; Rate: 1000 ml; Site: left antecubital; 19:34 Follow up: Response: No adverse reaction; IV Status: Infusion continued upon admission al5 17:20 Drug: morphine IVP or IV 4 mg IVP once over 4 mins Route: IVP; Infused Over: 4 mins; rs5 Site: left antecubital; 18:06 Follow up: Response: No adverse reaction; Pain is decreased me1 17:20 Drug: Ondansetron IVP 4 mg IVP once; over 2 minutes Route: IVP; Site: left antecubital; rs5 18:02 Follow up: Response: No adverse reaction; Nausea is decreased me1 19:02 Drug: Rocephin IV 1 grams IV at calculated rate once; Given slow IV push per pharmacy me1 instructions Route: IV; Rate: calculated rate; Site: left antecubital; 19:34 Follow up: Response: No adverse reaction; IV Status: Completed infusion; IV Intake: [id number] 19:04 Drug: metroNIDAZOLE IVPB 500 mg 100 ml IVPB at 200 ml/hr once over 30 mins Volume: 100 me1 ml; Route: IVPB; Rate: 200 ml/hr; Infused Over: 30 mins; Site: left antecubital; 19:34 Follow up: Response: No adverse reaction; IV Status: Infusion continued upon admission al5 Medication: 17:41 VIS not applicable for this client. rs5 Intake: 19:34 IV: 50ml; Total: 50ml. al5 Outcome: 18:34 Decision to Hospitalize by Provider. sp3 20:27 Admitted to Med/surg accompanied by tech, via stretcher, room 211, Other with NG tube al5 in place 20:27 Condition: good 20:27 Instructed on the need for admit, 20:27 Patient left the ED. al5 Signatures: Dispatcher [employer] Anibal Patel emValentina Cardozo Setul, MD MD sp3 Kamryn Maxwell RN RN mb9 Philippe Coker RN RN rs5 Stephanie Ma RN RN me1 Vi Pabon RN RN al5 Corrections: (The following items were deleted from the chart) 19:33 19:30 GI: Abdomen is round non-distended, Reports nausea, al5 al5
--- NOTE | 2024-05-07 18:34 | EDPHYS ---
Physician Documentation [facility] Name: Patricia Tucker Age: 83 yrs Sex: Female : 1940 Arrival Date: 05/07/2024 Time: 16:57 Bed 2 Private MD: ED Physician Sofia Mims HPI: 05/07 17:29 This 83 yrs old Female presents to ER via EMS with complaints of Abdominal Pain, sp3 Nausea/Vomiting. 17:29 83-year-old female with history of atrial fibrillation, COPD, hyperlipidemia, sp3 hypertension and recent colitis discharged yesterday by Dr. Dowd now presents for recurrent abdominal pain, abdominal distention and patient states no BM for a week. Patient also states she has generalized weakness. She denies any headache, fever, rash, chest pain, shortness of breath, or any other findings on ROS at this time.. Historical: - Allergies: 17:03 Iodine; rs5 17:03 SHELLFISH; rs5 - PMHx: 17:03 Atrial fibrillation; COPD; High Cholesterol; Hypertensive disorder; rs5 - PSHx: 17:03 cardiac stents x3; rs5 - Immunization history:: Adult Immunizations up to date. - Infectious Disease History:: Denies. - Social history:: Smoking status: Patient denies any tobacco usage or history of. ROS: 17:31 Constitutional: Negative for fever, chills, and weight loss, Eyes: Negative for injury, sp3 pain, redness, and discharge, ENT: Negative for injury, pain, and discharge, Neck: Negative for injury, pain, and swelling, Cardiovascular: Negative for chest pain, palpitations, and edema, Respiratory: Negative for shortness of breath, cough, wheezing, and pleuritic chest pain, Back: Negative for injury and pain, MS/Extremity: Negative for injury and deformity, Skin: Negative for injury, rash, and discoloration, Neuro: Negative for headache, weakness, numbness, tingling, and seizure, Psych: Negative for depression, anxiety, suicide ideation, homicidal ideation, and hallucinations, Allergy/Immunology: Negative for hives, rash, and allergies, 17:31 All other systems are negative, Exam: 17:33 Constitutional: This is a well developed, well nourished patient who is awake, alert, sp3 and in no acute distress. Head/Face: Normocephalic, atraumatic. Eyes: Pupils equal round and reactive to light, extra-ocular motions intact. Lids and lashes normal. Conjunctiva and sclera are non-icteric and not injected. Cornea within normal limits. Periorbital areas with no swelling, redness, or edema. Neck: Trachea midline, no thyromegaly or masses palpated, and no cervical lymphadenopathy. Supple, full range of motion without nuchal rigidity, or vertebral point tenderness. No Meningismus. Chest/axilla: Normal chest wall appearance and motion. Nontender with no deformity. No lesions are appreciated. Cardiovascular: Regular rate and rhythm with a normal S1 and S2. No gallops, murmurs, or rubs. Normal PMI, no JVD. No pulse deficits. Respiratory: Lungs have equal breath sounds bilaterally, clear to auscultation and percussion. No rales, rhonchi or wheezes noted. No increased work of breathing, no retractions or nasal flaring. Back: No spinal tenderness. No costovertebral tenderness. Full range of motion. Skin: Warm, dry with normal turgor. Normal color with no rashes, no lesions, and no evidence of cellulitis. MS/ Extremity: Pulses equal, no cyanosis. Neurovascular intact. Full, normal range of motion. Neuro: Awake and alert, GCS 15, oriented to person, place, time, and situation. Cranial nerves II-XII grossly intact. Motor strength 5/5 in all extremities. Sensory grossly intact. Cerebellar exam normal. Normal gait. Psych: Awake, alert, with orientation to person, place and time. Behavior, mood, and affect are within normal limits. 17:33 Abdomen/GI: Abdominal distention noted. Vital signs are normal with current blood pressure 128/52. Patient was hypotensive for EMS with reported blood pressure 70/30., 17:34 ECG was reviewed by the Attending Physician. EKG demonstrates normal sinus rhythm at 62 sp3 bpm with normal intervals, right bundle branch block and nonspecific diffuse ST's ST changes without evidence of acute ischemia. Vital Signs: 17:01 BP 128 / 52; Pulse 60; Resp 17; Pulse Ox 98% on R/A; rs5 18:01 BP 125 / 74; Pulse 66; Resp 17; Pulse Ox 99% on R/A; rs5 19:05 BP 117 / 67; Pulse 74; Resp 17; Pulse Ox 98% on R/A; rs5 19:32 BP 129 / 50; Pulse 62; Resp 16; Pulse Ox 100% on R/A; al5 MDM: 17:00 Medical Screening Exam initiated sp3 17:33 Data reviewed: vital signs, nurses notes, lab test result(s), EKG, radiologic studies. sp3 17:34 ED course: 83-year-old female with PMH above now with worsening abdominal pain, sp3 abdominal distention and reports no BM. Patient has distended abdomen objectively and CT scan is pending along with a full workup including lactate. Patient will likely need to be readmitted to the hospital after diagnostics are complete.. 18:35 ED course: Patient with intestinal obstruction noted on CT. I discussed the case with sp3 Dr. Dowd and Dr. Rizzo who will readmit and reconsult her tomorrow. NG tube is in place. Reviewed labs. This D5 half NS at 75 an hour also ordered.. 05/07 17:01 Order name: Blood Culture Adult (2) 3 05/07 17:02 Order name: CBC with Diff; Complete Time: 17:54 3 05/07 17:02 Order name: CMP; Complete [facility]: [facility] 05[facility] 17:02 Order name: Lactate w/ 2H reflex if indic.; Complete Time: 17:54 [facility] 05/[facility] 17:02 Order name: Protime (+inr); Complete Time: 17:54 3 05/07 17:02 Order name: Ptt, Activated; Complete Time: 17:54 [facility] 05/[facility] 17:02 Order name: Urinalysis w/ reflexes [facility] 05/07 17:02 Order name: Troponin High Sensitivity; Complete Time: 17:54 3 05/07 18:37 Order name: Basic Metabolic Panel [facility] 05/07 18:37 Order name: Basic Metabolic Panel [facility] 05/07 18:37 Order name: CBC with Automated Diff [facility] 05/07 18:37 Order name: CBC with Automated Diff [facility] 05/07 18:37 Order name: Lipase [facility] 05/07 18:37 Order name: Lipase [facility] 05/07 18:37 Order name: Liver (Hepatic) Function [facility] 05/07 18:37 Order name: Liver (Hepatic) Function [facility] 05/07 17:02 Order name: CT Abd/Pelvis - Without Contrast; Complete Time: 17:54 sp3 05/07 18:37 Order name: Abdomen 1 View (KUB) [facility] 05/07 17:02 Order name: Accucheck; Complete Time: 17:31 sp3 05/07 17:02 Order name: Cardiac monitoring; Complete Time: 17:04 sp3 05/07 17:02 Order name: EKG - Nurse/Tech; Complete Time: 17:04 sp3 05/07 17:02 Order name: IV Saline Lock - Large Bore; Complete Time: 17:31 sp3 05/07 17:02 Order name: Labs collected and sent; Complete Time: 17:31 sp3 05/07 17:02 Order name: O2 Per Protocol; Complete Time: 17:31 sp3 05/07 17:02 Order name: O2 Sat Monitoring; Complete Time: 17:31 sp3 05/07 17:02 Order name: Vital Signs; Complete Time: 17:31 sp3 05/07 18:33 Order name: NG Tube; Complete Time: 18:53 sp3 05/07 18:33 Order name: NPO; Complete Time: 18:53 sp3 Administered Medications: 17:20 Drug: NS 0.9% IV 1000 ml IV at 1000 ml once; to be given as a bolus over 60 minutes rs5 Route: IV; Rate: 1000 ml; Site: left antecubital; 19:34 Follow up: Response: No adverse reaction; IV Status: Infusion continued upon admission al5 17:20 Drug: morphine IVP or IV 4 mg IVP once over 4 mins Route: IVP; Infused Over: 4 mins; rs5 Site: left antecubital; 18:06 Follow up: Response: No adverse reaction; Pain is decreased me1 17:20 Drug: Ondansetron IVP 4 mg IVP once; over 2 minutes Route: IVP; Site: left antecubital; rs5 18:02 Follow up: Response: No adverse reaction; Nausea is decreased me1 19:02 Drug: Rocephin IV 1 grams IV at calculated rate once; Given slow IV push per pharmacy me1 instructions Route: IV; Rate: calculated rate; Site: left antecubital; 19:34 Follow up: Response: No adverse reaction; IV Status: Completed infusion; IV Intake: [id number] 19:04 Drug: metroNIDAZOLE IVPB 500 mg 100 ml IVPB at 200 ml/hr once over 30 mins Volume: 100 me1 ml; Route: IVPB; Rate: 200 ml/hr; Infused Over: 30 mins; Site: left antecubital; 19:34 Follow up: Response: No adverse reaction; IV Status: Infusion continued upon admission al5 Disposition Summary: 05/07/24 18:34 Hospitalization Ordered Notes: Hospitalization Status: Inpatient Admission sp3 Provider: Javier Dowd sp3 Location: Telemetry/[facility]Sur (Inpatient) sp3 Condition: Stable sp3 Problem: an acute exacerbation sp3 Symptoms: have worsened sp3 Bed/Room Type: Standard sp3 Room Assignment: 211(05/07/24 18:44) [facility] Diagnosis - Intestinal obstruction, abdominal pain sp3 Forms: - Medication Reconciliation Form sp3 - SBAR form sp3 - Leadership Thank You Letter sp3 Signatures: Dispatcher [employer] EDSofia Mehta MD MD sp3 Philippe Coker RN RN rs5 Stephanie Ma RN RN me1 Kari Churchill f Vi Pabon RN al5 Corrections: (The following items were deleted from the chart) 17:02 17:02 BLOOD CULTURE*+BA.LAB.BRZ ordered. EDMS EDMS 17:02 17:02 CBC+H.LAB.BRZ ordered. EDMS EDMS 17:02 17:02 COMPREHENSIVE METABOLIC PANEL+C.LAB.BRZ ordered. EDMS EDMS 17:02 17:02 LACTATE+C.LAB.BRZ ordered. EDMS EDMS 17:02 17:02 PROTIME (+INR)+COAG.LAB.BRZ ordered. EDMS EDMS 17:02 17:02 PTT, ACTIVATED+COAG.LAB.BRZ ordered. EDMS EDMS 17:02 17:02 Urinalysis+U.LAB.BRZ ordered. EDMS EDMS 17:02 17:02 Troponin High Sensitivity+C.LAB.BRZ ordered. EDMS EDMS 17:02 17:02 Abdomen Pelvis Wo Con+CT.RAD.BRZ ordered. EDMS EDMS 18:44 18:34 sp3 kmf 18:54 18:54 Chest Single View+RAD.RAD.BRZ ordered. EDMS EDMS
[2024-05-07] MEDS ORDERED: CEFTRIAXONE 1000 MG/VIAL ONE (18:59)
[2024-05-07] MEDS ORDERED: METRONIDAZOLE 500mg IVPB 500 MG/100 ML BAG IV ONE (18:59)
--- NOTE | 2024-05-07 19:07 | RAD REPORT ---
EXAM:Abdomen 1 View (KUB) HISTORY: Placement of NGT/OGT. Post Insertion. COMPARISON: None IMPRESSION: The NG tube terminates in the proximal stomach. Recommend advancing by another 7-10 cm.
[2024-05-07 20:32] VITALS: BMI 22.6
[2024-05-07] MEDS: D5 0.45 NS 1,000 ML IV SCH (20:46)
[2024-05-07] MEDS: CEFTRIAXONE 1,000 MG in NA CHLORIDE 0.9% 50 ML IVPB SCH (20:48)
[2024-05-07] MEDS: MORPHINE 4 MG/ML SYR IV PRN (22:11)
[2024-05-08] MEDS: METRONIDAZOLE 500mg IVPB 500 MG/100 ML BAG IV SCH (01:26)
[2024-05-08 02:24] LABS: Sqamous Epithelial <5 /HPF (None Seen); Urine Bacteria None Seen /HPF (<20); Urine Bilirubin 1+ (Negative); Urine Blood Negative (Negative); Urine Clarity Turbid (Clear); Urine Color Dark-Yellow (Yellow); Urine Culture Reflex Order NOT NEEDED; Urine Glucose NEGATIVE (Negative); Urine Ketones NEGATIVE (Negative); Urine Microscopic Reflex YN ORDER UMIC; Urine Mucus Slight /HPF (None Seen); Urine Nitrite NEGATIVE (Negative); Urine Protein 1+ (Negative); Urine RBC <5 /HPF (None Seen); Urine Urobilinogen 1+ (Normal); Urine WBC <5 /HPF (<5)
[2024-05-08 05:45] LABS: Absolute Eosinophils 0.1 K/uL (0-0.5); Absolute Lymphocytes (CBC) 0.8 K/uL (0.7-4.9); Absolute Monocytes 1.1 K/uL (0.1-1.3); Absolute Neutrophil 4.8 K/uL (1.8-8.0); Basophils % 0.3 % (0-1.3); Eosinophils % 1.3 % (0-4.4); Hematocrit 21.1 % (36.0-45.0); Hemoglobin 7.1 g/dL (12.0-15.0); Lymphocytes % 11.6 % (15.3-44.8); MCH 29.5 pg (27.0-35.0); MCHC 33.6 g/dL (32.0-36.0); MCV 87.9 fL (80-100); Monocytes % 15.9 % (3.3-12.3); Neutrophils % 70.9 % (41.7-73.7); Platelets 337 thou/uL (152-406); Red Cell Distribution Width 15.1 % (12.1-15.2)
[2024-05-08 06:06] LABS: Albumin 1.9 g/dL (3.4-5.0); Albumin/Globulin Ratio 0.7 (1.1-1.8); Alkaline Phosphatase 61 U/L (45-117); Anion Gap 8.4 mEq/L (5.0-15.0); BUN Blood Urea Nitrogen 18 mg/dL (7-18); Bicarbonate 26 mEq/L (21-32); Bilirubin Total 0.3 mg/dL (0.2-1.0); Globulin 2.6 g/dL (2.3-3.5); Glomerular Filtration Rate 75 ml/min (=/>90); Glucose Level 147 mg/dL (74-106); Lipase 54 U/L (13-75); Potassium 3.4 mEq/L (3.5-5.1); Protein, Total 4.5 g/dL (6.4-8.2); Sodium Level 132 mEq/L (136-145)
[2024-05-08 06:09] LABS: ALT/SGPT < 14 U/L (13-56); AST/SGOT < 10 U/L (15-37); Bilirubin Direct < 0.2 mg/dL (0-0.2); Bilirubin Indirect, Calculated 0.1 mg/dL (0.2-0.8)
[2024-05-08] MEDS ORDERED: SODIUM CHLORIDE 0.9% 10ML INJ IV PRN (06:50)
[2024-05-08] MEDS: FLU (Fluarix Triv) TS24-25(6MOS UP)/PF 45 MCG/0.5 ML Syringe IM ONE (07:15)
[2024-05-08] MEDS: HOME MED 1 EA UNK (Brimonidine Tartrate [Alphagan P] 10 ML Drops) OPTH SCH (09:00)
[2024-05-08] MEDS: [UNRECOGNIZED DRUG - OTHER] OPTH SCH (09:00)
[2024-05-08] MEDS: HOME MED 1 EA UNK (Budesonide/Formoterol Fumarate [Symbicort 160-4.5 Mcg Inhaler] 10.2 GM IH SCH (09:00)
[2024-05-08] MEDS: BRINZOLAMIDE OPTH SCH (09:00)
[2024-05-08] MEDS: BRIMONIDINE TART OPTH SCH (09:00)
[2024-05-08] MEDS: ENOXAPARIN 30 MG/0.3 ML SQ SCH (09:29)
[2024-05-08] MEDS: PANTOPRAZOLE 40 MG INJ IVP SCH (09:29)
[2024-05-08] MEDS: ONDANSETRON 4 MG/2 ML VIAL IV PRN (09:46)
[2024-05-08] MEDS: BENZOCAINE SPRAY 57 GM BTL TOP ONE (11:56)
[2024-05-08] MEDS: PHENOL 1.4% ORAL SPRAY 180ML MM ONE (12:15)
--- NOTE | 2024-05-08 14:01 | RAD REPORT ---
EXAM: XR Abdomen W Erect HISTORY: [facility] MAIN Colon obstruction Please do abdominal x-ray after BM COMPARISON: 05/07/[address] chest abdomen and pelvis FINDINGS: Single view of the abdomen shows a nonspecific, nonobstructive small bowel gas pattern. Mar ked distention of the proximal colon again seen, appear similar in degree to the most recent abdominal CT and radiograph. Enteric tube has been advanced with its tip now projecting in the region of the pylorus. No suspicious calcifications are seen. The bones are unremarkable. IMPRESSION: Stable proximal colonic distention as above.
--- NOTE | 2024-05-08 14:33 | CON ---
Date of Consultation: 05/07/2024 Reason For Consultation: Abdominal pain. History Of Present Illness: The patient is an 83-year-old female who was admitted last week with col itis. She slowly improved and was discharged home on Wednesday. However, after discharge, she had in creasing left lower quadrant pain associated with nausea. She came back to the emergency room and sh e had partial colon obstruction. She was admitted and I was consulted. Initially, the patient is johansen ving difficulty with her bowel movements for almost 3 weeks now following tibial fracture, which was being managed nonoperatively. She does not have any vomiting. She states that she is passing gas, b ut has not had a bowel movement and the pain is in the left lower quadrant. There is no sore throat, runny nose, cough, headaches, or dizziness. No chest pain. No fever or chills. Review of Systems: Otherwise unremarkable. Past Medical History: Glaucoma, COPD, high blood pressure, coronary artery disease, carotid artery s tenosis, hemangioma of the liver, and fibromyalgia. Past Surgical History: Cataract surgery, coronary artery stent placement, tonsillectomy, carotid art teresa stent placement, , hysterectomy, back surgery, wrist surgery, and breast implant. Allergies: INCLUDE VALSARTAN, IODINE, SHELLFISH. Social History: The patient does not smoke or drink. Family History: Significant for colon cancer in the mother. Father's history is unknown. Physical Examination: Vital Signs: Stable. She is afebrile. General: She is awake, alert, oriented x3. Head and Neck: No masses. No JVD. Throat clear. Neck is supple. Chest: Clear. Heart: S1, S2. Abdomen: Slightly distended, soft. Tenderness in the left side; however, there is no rebound, rigid ity, or guarding. There is also tenderness in the epigastric region as well. Extremities: Adequately perfused. Nontender. Neuro: Nonfocal. Imaging: CT of the abdomen and pelvis reviewed with the radiologist essentially shows inspissated st ool distal to the colitis, which has improved, but it is causing partial colon obstruction with dilat ation of the transverse colon with air-fluid levels. There is no evidence of any small bowel dilatat ion at this point. Laboratory Data: Reviewed. White count is normal. H and H are stable. Sodium is 132. Electrolyte s are otherwise unremarkable. Assessment: 83-year-old female with colitis, which is improving; however, she does have inspissated stool causing a partial colon obstruction. Recommendations: We will continue her on IV antibiotics, NG tube for the time being, n.p.o. We will try Fleet Enema if she has a bowel movement. We will repeat the x-ray to see how her abdomen looks or intestine looks; and if should there be improvement, we will perhaps discontinue the NG tube and b egin the patient on clear liquid. Plan of care was discussed in detail with the patient and [facility] and. POOL/MODTorin Voice ID: [id number] Report ID: [id number]
[2024-05-08] MEDS: LATANOPROSTENE BUNOD OPTH SCH (21:00)
[2024-05-08] MEDS: KCL 20 MEQ/100 mL IVPB 20 MEQ/100 ML BAG IV SCH (21:26)
--- NOTE | 2024-05-09 05:26 | HP ---
Date of Admission: 05/07/2024 Chief Complaint: Abdominal pain and nausea. History Of Present Illness: This is an 83-year-old pleasant female patient, who was recently admitte d to the hospital with left-sided colitis and she was discharged to go home after her condition had i mproved with oral antibiotics. The patient had 2 CAT scans done during last hospital admission and s urgical consultation was also requested from Dr. Rizzo during last hospital stay. Once her condition had improved, pain has improved, she was discharged with oral antibiotics. She went home on 024, was doing fine until yesterday sometime in the afternoon or evening time. Her left-sided abdomi nal pain came back again associated with nausea, so she came into emergency room. Denies any fever, chills. She had 1 small bowel movement after she left the hospital. After she was evaluated in the ER, she was diagnosed as having bowel obstruction and was admitted to the hospital with NG tube, IV f luid, and IV antibiotics. Physical Examination: Vital Signs: Temperature 97.3, pulse 64, respiratory rate 18, blood pressure 117/46, oxygen saturati on 95% on room air. Height 4 feet 11 inches, weight 112 pounds. General: Awake, alert, oriented, not in distress. HEENT: Presence of nasogastric tube, present draining light brown to light green color clear liquid. Neck: Supple. No JVD, lymph nodes, bruit, thyromegaly noted. Lungs: Bilateral good equal air entry. Clear to auscultation. No rhonchi. No rales. Heart: Normal heart sounds, no murmur or gallop. Abdomen: Soft. Bowel sounds normal. No guarding, rigidity, distention. Presence of tenderness in left lower quadrant. No rebound tenderness. Extremities: No leg edema. No calf tenderness. Skin: No rash, ulcer, cellulitis. Lymphatics: No lymph node enlargement in neck, supraclavicular, infraclavicular region. Neuro: No focal neurological deficit. Chest: Unremarkable. External Genitalia: Deferred. Rectal: Deferred. Laboratory Data: Yesterday, WBC 9.9, hemoglobin 8.2, platelets 381. Today, WBC 6.7, hemoglobin 7.1, platelets 337. For chemistry yesterday, sodium 130, potassium 3.7, chloride 97, bicarb 27, BUN 17, creatinine 0.95, glucose 141, lactic acid 1.7. Liver function tests unremarkable. This morning, sod ium 132, potassium 3.4, chloride 101, bicarb 26, BUN 18, creatinine 0.79, glucose 147. Liver functio n tests unremarkable. Lipase 54. Urinalysis, leukocyte esterase 25, otherwise negative. CAT scan o f abdomen and pelvis without contrast shows dilated colon at the level of mid sigmoid, where there is inspissated stool that could be resulting in colonic obstruction. Impression: 1.Bowel obstruction. 2.Colitis. 3.Hypokalemia. 4.Hyponatremia. 5.Anemia. 6.Hypertension. 7.Coronary artery disease. 8.Hyperlipidemia. 9.Chronic obstructive pulmonary disease. Plan: We will go ahead and admit the patient to hospital for further evaluation and management of th is problem. The patient is appropriate for inpatient and is [facility] [place] [facility]. We will keep her n.p.o. NG tube was placed in the emergency room to low intermittent suction. W e will continue that. Continue IV fluid and empiric antibiotics, which is ceftriaxone and metronidaz ole. Consult general surgeon, Dr. Rizzo, and I did discuss with him regarding details yesterday and today. The patient is on chronic anticoagulation at home using Eliquis and while she is n.p.o., we w ill use Lovenox per order. For hypertension, she takes olmesartan at home, but considering her blood pressure, we will not be needing any antihypertensive medication at this time. We will monitor bloo d pressure. At appropriate time, we will consider to restart her blood pressure medication. For hyp erlipidemia, she takes statin therapy and we will keep it on hold at this time. Her eyedrops will be continued per order. Total time spent 85 minutes that includes review of last hospital admission re cord from 05/03/2024 including H and P, discharge summary, and all the test results from last hospita l admission, communication with ER physician, review of emergency room visit record, communication wi general surgeon, Dr. Rizzo, and performing today's evaluation and management. I will see her tomorrow for followup. ROSELINE/MODL Voice ID: [id number]
[2024-05-09 05:58] LABS: Absolute Eosinophils 0.1 K/uL (0-0.5); Absolute Lymphocytes (CBC) 0.8 K/uL (0.7-4.9); Absolute Monocytes 1.1 K/uL (0.1-1.3); Absolute Neutrophil 5.5 K/uL (1.8-8.0); Basophils % 0.3 % (0-1.3); Eosinophils % 0.8 % (0-4.4); Hematocrit 22.4 % (36.0-45.0); Hemoglobin 7.4 g/dL (12.0-15.0); Lymphocytes % 11.3 % (15.3-44.8); MCH 29.3 pg (27.0-35.0); MCHC 33.3 g/dL (32.0-36.0); MCV 88.2 fL (80-100); Monocytes % 14.7 % (3.3-12.3); Neutrophils % 72.9 % (41.7-73.7); Nucleated Red Blood Cells % 0.1 % (0-0); Platelets 356 thou/uL (152-406); RBC Red Blood Cell Count 2.54 M/uL (3.86-4.86); Red Cell Distribution Width 15.1 % (12.1-15.2)
[2024-05-09 06:05] LABS: Anion Gap 5.3 mEq/L (5.0-15.0); Magnesium 2.4 mg/dL (1.6-2.4); Potassium 4.3 mEq/L (3.5-5.1)
--- NOTE | 2024-05-09 11:02 | PN ---
Date of Progress Note: 05/09/2024 Subjective: The patient denies any vomiting. Some nausea with pain. She did have one episode of pa in, this morning. She did have a bowel movement yesterday and a bowel movement this morning as well, as documented. She is waiting for another enema and they will get another abdominal x-ray following that. Objective: Vital Signs: Stable. She is afebrile. Abdomen: Soft, slightly distended. Minimal tenderness, but no rebound, rigidity, or guarding. Laboratory Data: Reviewed. White count is normal. There is no left shift. Chemistry reviewed, ess entially unchanged. Assessment: Colon obstruction, partial, secondary to colitis and inspissated stool. Recommendations: Continue NG tube. Check x-ray. Make further recommendation based on the x-ray. I f the colon obstruction is improved, we will begin her on clear liquids and slowly advance. The michaela ent is clinically stable, in fair condition at this time. We will follow this patient closely. POOL/HARRISON Voice ID: [id number] Report ID: [id number]
--- NOTE | 2024-05-09 12:24 | EKG ---
Test Date: 2024-05-07 Test Time: 17:59:25 Construction Field Engineer: MARILIN MEASUREMENT RESULTS: Intervals: Rate: 62 NM: 176 QRSD: 122 QT: 462 QTc: 468 Mckenna: P: 76 NM: 176 QRS: 35 T: 13 INTERPRETIVE STATEMENTS: Normal sinus rhythm Nonspecific T wave abnormality Abnormal ECG Compared to ECG 07/10/2023 20:08:16 T-wave abnormality now present Sinus bradycardia no longer present ST (T wave) deviation no longer present Prolonged QT interval no longer present Electronically Signed On 05-09-24 12:18:09 HAND II THERMAL CUTTER by Tony Leiva
--- NOTE | 2024-05-09 17:55 | RAD REPORT ---
EXAM: XR of the abdomen HISTORY: Abdominal pain constipation COMPARISON: 05/08/2024 FINDINGS: XR of the abdomen shows a thickened appearance to the mildly gas dilated colon.. No suspic ious calcifications are seen. The bones are unremarkable. Enteric tube tip is in the stomach. IMPRESSION: Colon is mildly distended with a thickened and irregular appearance. This is a change since the radio graph performed yesterday. CT abdomen and pelvis without contrast is recommended for further evaluation.
[2024-05-09 22:38] VITALS: O2SAT 97
--- NOTE | 2024-05-09 22:44 | PN ---
Date of Progress Note: 05/09/2024 Subjective: The patient was seen this morning for followup. The patient's NG tube was in place. He r abdominal pain was better. She continues to have complaints of pain in her throat area from NG tub e. Objective: Vital Signs: Reviewed. HEENT: Unremarkable. Lungs: Clear to auscultation. Heart: Sounds normal. Abdomen: Soft. Bowel sounds normal. Presence of mild tenderness in left lower quadrant, but overal l better than yesterday. Extremities: No leg edema. Laboratory Data: White count 7.5, hemoglobin 7.4, platelets 356. Sodium 130, potassium 4.3, chlorid e 102, bicarb 27, BUN 20, creatinine 0.71, glucose 149. Impression: 1.Bowel obstruction. 2.Colitis. 3.Hypertension. 4.Chronic anticoagulation therapy. 5.Anemia. Plan: We will continue NG tube, IV fluid, IV antibiotics. The patient remains n.p.o. and we will co ntinue to follow with Dr. Rizzo. She is also on Lovenox while she is n.p.o. and we will see her lidya roman for followup. ROSELINE/MODL Voice ID: [id number] Report ID: [id number]
[2024-05-10 06:10] LABS: Absolute Eosinophils 0.2 K/uL (0-0.5); Absolute Lymphocytes (CBC) 1.4 K/uL (0.7-4.9); Absolute Monocytes 0.7 K/uL (0.1-1.3); Absolute Neutrophil 2.7 K/uL (1.8-8.0); Basophils % 0.7 % (0-1.3); Eosinophils % 4.4 % (0-4.4); Hematocrit 19.1 % (36.0-45.0); Hemoglobin 6.2 g/dL (12.0-15.0); Lymphocytes % 27.7 % (15.3-44.8); MCH 28.6 pg (27.0-35.0); MCHC 32.4 g/dL (32.0-36.0); MCV 88.4 fL (80-100); MPV 8.6 fL (7.6-11.3); Monocytes % 14.3 % (3.3-12.3); Neutrophils % 52.9 % (41.7-73.7); Platelets 296 thou/uL (152-406); RBC Red Blood Cell Count 2.17 M/uL (3.86-4.86); Red Cell Distribution Width 15.1 % (12.1-15.2)
[2024-05-10 06:37] LABS: Anion Gap 6.3 mEq/L (5.0-15.0); Magnesium 1.9 mg/dL (1.6-2.4); Potassium 3.3 mEq/L (3.5-5.1)
[2024-05-10] MEDS: KCL 20 MEQ/100 mL IVPB 20 MEQ/100 ML BAG IV SCH ×2 (09:51→12:50)
[2024-05-10] MEDS: NA CHLORIDE 0.9% 250 ML ONE (11:00)
--- NOTE | 2024-05-10 11:41 | PN ---
Date of Progress Note: 05/10/2024 Subjective: The patient is awake, alert. No complaints. Feels much better. She had a large bowel movement yesterday after an enema. There is no nausea or vomiting. NG tube is putting out minimal d rainage. Objective: Vital Signs: Her vitals are stable. She is afebrile. Abdomen: Soft, nondistended, nontender. Positive bowel sounds. Laboratory Data: Does reveal a low H and H and the patient is being transfused. Assessment: Colon obstruction secondary to constipation and colitis. Recommendations: Continue IV antibiotics as ordered. Discontinue NG tube. Start clear liquids. In centive spirometry. The patient was advised strongly as soon as she is discharged to follow up with the GI service for an outpatient colonoscopy in 4-6 weeks. POOL/HARRISON Voice ID: [id number] Report ID: [id number]
--- NOTE | 2024-05-10 22:53 | PN ---
Date of Progress Note: 05/10/2024 Subjective: The patient was seen this morning for followup and she was feeling much better. Her abd ominal pain is much better. She had 2 good-sized bowel movements overnight as she reports. When I s aw her this morning, NG tube was still in place and I am hoping that Dr. Rizzo will probably remove i t today after he sees her for followup. Objective: Vital Signs: Reviewed. HEENT: Unremarkable. Lungs: Clear to auscultation. Heart: Sounds normal. Abdomen: Soft. Bowel sounds normal. No guarding, rigidity, tenderness, distention. Extremities: No leg edema. Laboratory Data: WBC 5, hemoglobin 6.2, platelets 296. Sodium 132, potassium 3.3, chloride 103, bic arb 26, BUN 16, creatinine 0.61, glucose 116, magnesium 1.9. Impression: 1.Bowel obstruction. 2.Anemia. 3.Hypokalemia. 4.Hypertension. 5.Hyponatremia. Plan: For hyponatremia, no need for further intervention except monitoring. Potassium will be repla marija per order. For anemia problem, we will go ahead and give 2 units of packed red cell blood transf usion. The patient has a longstanding history of anemia and she goes to see senior microsoft net developer on a monthl y basis and no need for any further intervention except blood transfusion at this time. For bowel obstruction, we will continue antibiotic per order. Continue to follow up with Dr. Rizzo and I will see her tomorrow for followup. ROSELINE/MODL Voice ID: [id number] Report ID: [id number]
[2024-05-11 04:46] LABS: Absolute Basophils 0.1 K/uL (0-0.5); Absolute Eosinophils 0.2 K/uL (0-0.5); Absolute Lymphocytes (CBC) 1.3 K/uL (0.7-4.9); Absolute Monocytes 0.8 K/uL (0.1-1.3); Absolute Neutrophil 5.5 K/uL (1.8-8.0); Basophils % 1.1 % (0-1.3); Eosinophils % 2.7 % (0-4.4); Hematocrit 28.7 % (36.0-45.0); Lymphocytes % 16.2 % (15.3-44.8); MCH 29.7 pg (27.0-35.0); MCV 84.9 fL (80-100); Monocytes % 10.3 % (3.3-12.3); Neutrophils % 69.7 % (41.7-73.7); Platelets 308 thou/uL (152-406); RBC Red Blood Cell Count 3.38 M/uL (3.86-4.86); Red Cell Distribution Width 14.7 % (12.1-15.2)
[2024-05-11 05:05] LABS: Anion Gap 8.6 mEq/L (5.0-15.0); Magnesium 1.7 mg/dL (1.6-2.4); Potassium 3.6 mEq/L (3.5-5.1)
[2024-05-11] MEDS: MAGNESIUM SULFATE 1 gm IVPB 1 GM/100 ML BAG IV ONE (07:06)
[2024-05-11] MEDS: APIXABAN 2.5 MG TABLET PO SCH (08:57)
[2024-05-11] MEDS: POTASSIUM CL SA 10 MEQ TAB PO ONE (08:57)
[2024-05-11] MEDS: AMIODARONE HCL 200 MG TAB PO SCH (08:58)
--- NOTE | 2024-05-11 12:43 | PN ---
Date of Progress Note: 05/11/2024 Subjective: The patient is awake, alert. No complaint. Tolerating her clear liquids. Had couple o f bowel movements yesterday. Objective: Vital Signs: Stable, afebrile. Abdomen: Soft, nondistended, nontender. Positive bowel sounds. Assessment: Colon obstruction secondary to colitis and constipation. Recommendations: Advance diet as tolerated. Inpatient rehab evaluation. The patient cleared from s urgical standpoint for transfer to the rehab unit once accepted. Again, patient will need a colonosc opy in 4-6 weeks, which was stressed to her yesterday and she has an appointment with Dr. Cruz. POOL/HARRISON Voice ID: [id number] Report ID: [id number]
[2024-05-11 16:21] VITALS: BP 167/77; TEMP 98.8
--- NOTE | 2024-05-12 04:19 | DS ---
Date of Discharge: 05/11/2024 Disposition: The patient was discharged to go to inpatient rehab. Physical Examination: HEENT: Unremarkable. Lungs: Clear to auscultation. Heart: Sounds normal. Abdomen: Soft. Bowel sounds normal. No guarding, rigidity, tenderness, distention. Extremities: No leg edema. Discharge Medications And Instructions: Continue all current medications except discontinue IV antib iotics. See copy of transfer MAR for more details. Laboratory Data: Today, white count 7.9, hemoglobin 10, platelets 308. Upon admission, white count was 6.7, hemoglobin 7.1, platelets 337. Lowest hemoglobin was 6.2 on 05/10/2024, which was yesterday and after that the patient was ordered to receive 2 units of PRBC blood transfusion, which she did a nd today's hemoglobin is 10. Chemistry: Upon admission, sodium 130, potassium 3.7, chloride 97, bic arb 27, BUN 17, creatinine 0.95, glucose 141. Liver function test unremarkable. Today's chemistry: Sodium 131, potassium 3.6, chloride 102, bicarb 24, BUN 9, creatinine 0.58, glucose 119. Magnesium 1.7. Lowest potassium was 3.3 and that was yesterday, and potassium was corrected after that. Hospital Course: This is an 83-year-old very pleasant female patient who was [facility] with [facility] pain and nausea. Please see dictated H and P for more information. The patient cam e into emergency room with this complaint and was evaluated. CAT scan of the abdomen and pelvis show ed evidence of bowel obstruction. She was admitted to the hospital with this. NG tube was placed to low intermittent suction. The patient was kept n.p.o. IV fluid and IV antibiotic were started and general surgeon, Dr. Rizzo, was consulted. With conservative treatment, the patient's condition impr kelechi and her abdominal pain subsided. Bowel obstruction problem has resolved, and she started to hav e bowel movement and yesterday her NG tube was discontinued. She is tolerating diet very well. It w as clear liquid diet that was started yesterday and today, Dr. Rizzo will advance her diet. The michaela ent has fracture of the right proximal tibia, for which she is nonweightbearing. She requested today that she will not be able to go home as she has difficulty taking care of herself and her is very old who will not be able to assist her, and requested for us to see if we can get her into inmn tient rehab on the fifth floor and if that does not work out, then for us to try to help her to get i nto longterm facility. With that, Social Service was consulted. The patient was accepted to go to inpatient rehab after physical therapy evaluation and she was transferred in stable condition t o fifth floor, where I will continue to follow up for medical reasons. Final Diagnoses: 1.Bowel obstruction. 2.Colitis. 3.Hypokalemia. 4.Hyponatremia. 5.Anemia. 6.Hypertension. 7.Coronary artery disease. 8.Hyperlipidemia. 9.Chronic obstructive pulmonary disease. Total time spent: 40 minutes. ROSELINE/AHRRISON Voice ID: [id number] Report ID: [id number]
== END 2024-05-11 19:13 | DRG 389 ==
LOC: ER 16:57 → ERHOLD 18:27 → 2ND 19:53
PROVIDERS: ADMIT Internal Medicine; ATTEND Internal Medicine
PROC: 0DH67UZ Insertion of Feeding Device into Stomach, Via Natural or Artificial Opening (ICD-10-PCS; 2024-05-07)
PROC: 30233N1 Transfusion of Nonautologous Red Blood Cells into Peripheral Vein, Percutaneous Approach (ICD-10-PCS; principal; 2024-05-10)
DX: K56.600 Partial intestinal obstruction, unspecified as to cause (principal); E87.1 Hypo-osmolality and hyponatremia; I48.91 Unspecified atrial fibrillation; I10 Essential (primary) hypertension; D64.9 Anemia, unspecified; E87.6 Hypokalemia; E78.00 Pure hypercholesterolemia, unspecified; M79.7 Fibromyalgia; K59.00 Constipation, unspecified; K52.9 Noninfective gastroenteritis and colitis, unspecified; J44.9 Chronic obstructive pulmonary disease, unspecified; I25.10 Atherosclerotic heart disease of native coronary artery without angina pectoris; S82.101D Unspecified fracture of upper end of right tibia, subsequent encounter for closed fracture with routine healing; Z95.5 Presence of coronary angioplasty implant and graft; Z91.013 Allergy to seafood; Z79.01 Long term (current) use of anticoagulants; Z90.710 Acquired absence of both cervix and uterus
CPT/HCPCS: 36415; 74018; 74019; 74176; 80048; 80053; 80076; 81001; 83605; 83690; 83735; 84484; 85014; 85018; 85025; 85610; 85730; 86850; 86900; 86901; 86920; 87040; 93005; 94010; 96361; 96365; 96375; 97161; 97530; 97542; 99285; J0696; J1650; J2405; J2470; J3475; J3480; J7030; J7050; J7799; P9016

== ENCOUNTER 2024-05-11 16:33 | Inpatient (IN) | payer OTHER, MEDICARE ==
[2024-05-11] MEDS: SIMBRINZA EYE OPTH SCH (20:00)
[2024-05-11] MEDS: BRIMONIDINE TARTRATE OPTH SCH (20:28)
[2024-05-11] MEDS ORDERED: HYDROCODONE/APAP 5/325 MG TAB PO PRN (20:42)
[2024-05-11] MEDS ORDERED: TRAMADOL HCL 50 MG TAB PO PRN (20:43)
[2024-05-11] MEDS ORDERED: ACETAMINOPHEN 500 MG TAB PO PRN (20:43)
[2024-05-11] MEDS: LATANOPROST 0.005% 2.5ML OPTH OPTH SCH (21:00)
[2024-05-11] MEDS: D5 0.45 NS 1,000 ML IV SCH (21:00)
[2024-05-11] MEDS: CEFTRIAXONE 1,000 MG in NA CHLORIDE 0.9% 50 ML IVPB SCH (22:37)
[2024-05-12 00:02] VITALS: BMI 23.0
[2024-05-12] MEDS: METRONIDAZOLE 500mg IVPB 500 MG/100 ML BAG IV SCH (00:16)
[2024-05-12] MEDS ORDERED: ONDANSETRON 4 MG/2 ML VIAL IV PRN (00:30)
[2024-05-12 01:12] LABS: Renal Epithelial <5 /HPF (None Seen); Specific Gravity 1.009 (1.005-1.030); Sqamous Epithelial None Seen /HPF (None Seen); Urine Bacteria None Seen /HPF (<20); Urine Bilirubin NEGATIVE (Negative); Urine Blood Negative (Negative); Urine Clarity Clear (Clear); Urine Color Light-Yellow (Yellow); Urine Culture Reflex Order NOT NEEDED; Urine Glucose NEGATIVE (Negative); Urine Ketones NEGATIVE (Negative); Urine Micro Reflex YN NO BILL MICROSCOPIC; Urine Mucus Slight /HPF (None Seen); Urine Nitrite NEGATIVE (Negative); Urine Protein NEGATIVE (Negative); Urine RBC <5 /HPF (None Seen); Urine Urobilinogen Normal (Normal); Urine WBC <5 /HPF (<5)
[2024-05-12 06:02] LABS: Absolute Eosinophils 0.1 K/uL (0-0.5); Absolute Neutrophil 6.7 K/uL (1.8-8.0); Basophils % 0.3 % (0-1.3); Eosinophils % 1.6 % (0-4.4); Hematocrit 28.4 % (36.0-45.0); Hemoglobin 9.5 g/dL (12.0-15.0); Lymphocytes % 11.3 % (15.3-44.8); MCHC 33.4 g/dL (32.0-36.0); MCV 86.7 fL (80-100); MPV 8.2 fL (7.6-11.3); Monocytes % 11.5 % (3.3-12.3); Neutrophils % 75.3 % (41.7-73.7); Platelets 307 thou/uL (152-406); RBC Red Blood Cell Count 3.28 M/uL (3.86-4.86); Red Cell Distribution Width 14.5 % (12.1-15.2)
[2024-05-12 06:32] LABS: Albumin 1.9 g/dL (3.4-5.0); Magnesium 1.7 mg/dL (1.6-2.4)
[2024-05-12] MEDS: SYMBICORT IH SCH (08:00)
[2024-05-12] MEDS ORDERED: CEFTRIAXONE 1,000 MG in NA CHLORIDE 0.9% 50 ML IVPB SCH (08:00)
[2024-05-12] MEDS: AMIODARONE HCL 200 MG TAB PO SCH (09:12)
[2024-05-12] MEDS: APIXABAN 2.5 MG TABLET PO SCH (09:13)
[2024-05-12] MEDS: PANTOPRAZOLE 40 MG INJ IVP SCH (09:15)
--- NOTE | 2024-05-12 14:07 | P.RH.PN ---
Estimated Length of Stay: 10 Expected Discharge Date: 05/18/24 Discharge Disposition Plan: Home Family Support: Yes Jail Goal: Mobility, Transfers, Self Care Vital Signs: Last Vital Signs Temp 98.6 F 05/12/24 08:00 Pulse 66 05/12/24 08:00 Resp 16 05/12/24 08:00 BP 145/67 H 05/12/24 08:00 Pulse Ox 96 05/12/24 08:00 Laboratory: Laboratory Last Values WBC 8.90 thou/uL (4.3-10.9) 05/12/24 05:14 RBC 3.28 M/uL (3.86-4.86) L 05/12/24 05:14 Hgb 9.5 g/dL (12.0-15.0) L 05/12/24 05:14 Hct 28.4 % (36.0-45.0) L 05/12/24 05:14 MCV 86.7 fL (80-100) 05/12/24 05:14 MCH 29.0 pg (27.0-35.0) 05/12/24 05:14 MCHC 33.4 g/dL (32.0-36.0) 05/12/24 05:14 RDW 14.5 % (12.1-15.2) 05/12/24 05:14 Plt Count 307 thou/uL (152-406) 05/12/24 05:14 MPV 8.2 fL (7.6-11.3) 05/12/24 05:14 Neutrophils % 75.3 % (41.7-73.7) H 05/12/24 05:14 Lymphocytes % 11.3 % (15.3-44.8) L 05/12/24 05:14 Monocytes % 11.5 % (3.3-12.3) 05/12/24 05:14 Eosinophils % 1.6 % (0-4.4) 05/12/24 05:14 Basophils % 0.3 % (0-1.3) 05/12/24 05:14 Absolute Neutrophils 6.7 K/uL (1.8-8.0) 05/12/24 05:14 Absolute Lymphocytes 1.0 K/uL (0.7-4.9) 05/12/24 05:14 Absolute Monocytes 1.0 K/uL (0.1-1.3) 05/12/24 05:14 Absolute Eosinophils 0.1 K/uL (0-0.5) 05/12/24 05:14 Absolute Basophils 0.0 K/uL (0-0.5) 05/12/24 05:14 Sodium 131 mEq/L (136-145) L 05/12/24 05:14 Potassium 4.0 mEq/L (3.5-5.1) 05/12/24 05:14 Chloride 101 mEq/L (98-107) 05/12/24 05:14 Carbon Dioxide 27 mEq/L (21-32) 05/12/24 05:14 Anion Gap 7.0 mEq/L (5.0-15.0) 05/12/24 05:14 BUN 5 mg/dL (7-18) L 05/12/24 05:14 Creatinine 0.65 mg/dL (0.55-1.02) 05/12/24 05:14 Est GFR (CKD-EPI) 88 ml/min (=/>90) L 05/12/24 05:14 Glucose 115 mg/dL (74-106) H 05/12/24 05:14 Calcium 7.9 mg/dL (8.5-10.1) L 05/12/24 05:14 Magnesium 1.7 mg/dL (1.6-2.4) 05/12/24 05:14 Albumin 1.9 g/dL (3.4-5.0) L 05/12/24 05:14 Prealbumin 12.0 mg/dL (20-40) L 05/12/24 05:14 Urine Color Light-yellow (Yellow) 05/12/24 00:14 Urine Clarity Clear (Clear) 05/12/24 00:14 Urine pH 7.0 (5.0-7.0) 05/12/24 00:14 Ur Specific Tinnie 1.009 (1.005-1.030) 05/12/24 00:14 Glucose (UA)(Auto) Negative (Negative) 05/12/24 00:14 Urine Ketones Negative (Negative) 05/12/24 00:14 Urine Blood Negative (Negative) 05/12/24 00:14 Urine Nitrite Negative (Negative) 05/12/24 00:14 Urine Bilirubin Negative (Negative) 05/12/24 00:14 Urine Urobilinogen Normal (Normal) 05/12/24 00:14 Ur Leukocyte Esterase Negative Brennan/uL (Negative) 05/12/24 00:14 Urine RBC <5 /HPF (None Seen) 05/12/24 00:14 Urine WBC <5 /HPF (<5) 05/12/24 00:14 Ur Squamous Epith Cells None seen /HPF (None Seen) 05/12/24 00:14 U Non-Squamous Epi Cells <5 /HPF (None Seen) 05/12/24 00:14 Ur Renal Epithelial Cell <5 /HPF (None Seen) 05/12/24 00:14 Urine Bacteria None seen /HPF (<20) 05/12/24 00:14 Urine Mucus Slight /HPF (None Seen) 05/12/24 00:14 Urine Culture Reflexed Not needed 05/12/24 00:14 Urine Total Protein Negative (Negative) 05/12/24 00:14 Weight: 114 lb Physician Update: Near independent with bed mobility. With NWB still able to transfer from bed to chair and toilet. Her 93 year old and usually helps the ADLs. She is at [facility] with transfers. She will benifit from grab bars in the bathroom at home. Summary: Patient's care plan and senior care goals have been reviewed and revised as necessary. Please see the Rehabilitation Signature page for all necessary signatures.
--- NOTE | 2024-05-12 17:05 | PN ---
Date of Progress Note: 05/12/2024 Subjective: The patient was seen this morning for followup. She was sitting in wheelchair. Denied any complaints, this morning, when I saw her and she was on the rehab floor. Objective: Vital Signs: Reviewed. HEENT: Unremarkable. Lungs: Clear to auscultation. Heart: Sounds normal. Abdomen: Soft. Bowel sounds normal. No guarding, rigidity, tenderness, distention. Extremities: No leg edema. Laboratory Data: White count 8.9, hemoglobin 9.5, platelets 307, sodium 131, potassium 4, chloride 1 01, bicarb 27, BUN 5, creatinine 0.65, glucose 115, magnesium 1.7, albumin 1.9. Impression: 1.Bowel obstruction. 2.Colitis. 3.Anemia. 4.Chronic anticoagulation therapy. Plan: We will go ahead and continue current medications. The patient's antibiotics were discontinue d yesterday. She has received adequate number of days of IV antibiotic. She is tolerating diet very well and had a bowel movement, this morning. Denies any more abdominal pain. We will continue to p page physical therapy under guidance of Dr. Abel. We will see her tomorrow for followup. ROSELINE/MODL Voice ID: [id number] Report ID: [id number]
--- NOTE | 2024-05-13 04:41 | HP ---
Date of Admission: 05/11/2024 Time Of Service: 2 p.m. Chief Complaint: "I did not have a bowel movement for a long time and I am weak." History Of Present Illness: Ms. Tucker is an 83-year-old patient with COPD, atrial fibrillation, hypert ension, dyslipidemia, who presents to emergency department with left-sided abdominal pain and nausea and not having had a bowel movement in 2 weeks. Evaluation identified colitis with bowel obstruction , hypokalemia, hyponatremia, anemia. She received IV antibiotics. She was put n.p.o. NG tube place d. General surgeon consulted. Anticoagulation administered and her labs evaluated and multiple carter rbid conditions managed. She was also on a nonweightbearing status and had limited mobility and decr eased physical functioning. Prior to hospitalization, she was fully independent, active in the commu nity, able to walk without an assistive device, cook, clean, drive and had no limitations. Since her constipation, she fell and she broke her tibia and has been put on a nonweightbearing status as a re sult. Please note that she has a right tibial plateau fracture after falling. X-ray was done on 11/2023. As a result of her nonweightbearing status, she now requires [id number] assist for bed mobilization and transfers, which is ylv-ca-strge and pivot as well as wheelchair mobilization. She is now admitted to the inpatient rehabilitation unit to help her return towards her prior level of f unctioning, increase her mobility, and to decrease her chance of rehospitalization. Past Medical History: Tibial plateau fracture on the right and currently nonweightbearing, COPD, atr ial fibrillation, hypertension, dyslipidemia, cardiac stents x3. Allergies: IODINE AND SHELLFISH. Medications: Extra-strength Tylenol 500 mg every 6 hours as needed, Cordarone 100 mg daily, Eliquis 2.5 mg twice daily, Rocephin 1 q.12 hours, latanoprost 1 drop in each eye at bedtime, Flag yl 500 mg every 8 hours, Zofran 4 mg every 6 hours, Protonix 40 mg daily, tramadol 50 mg every 6 hour s. X-ray Imaging: CT scan of the abdomen and pelvis on 05/07/2024 shows dilated colon to the level of t he mid sigmoid where there is inspissated stool, which is felt to be impacted causing colonic obstruc tion. KUB on 05/07/2024 shows NG tube terminates in the proximal stomach, recommend advancing by ano ther 7 to 10 cm. Abdominal x-ray on 05/08/2024 shows single view of the abdomen; nonspecific, nonobs tructive small bowel gas pattern. There is marked distention in the proximal colon in the most recent abdominal CT scan. Enteric tube has been advanced with its tip now projecting in the re gion of the pylorus. No suspicious calcifications seen. unremarkable. Stable proximal c olonic distention as above. On 05/09/2024, x-ray shows colon is mildly distended with thickened irre gular appearance. radiograph performed the day before, a CT abdomen and pelvis without co ntrast recommended. Laboratory Studies: White blood cell count 8.9, hemoglobin 9.5, platelets 307. INR 2.01. Sodium 13 1, potassium 4.0, chloride 101, carbon dioxide 27, BUN is down to 5, creatinine 0.65, glucose 115, ca lcium 7.9, magnesium 1.7, albumin 1.9, prealbumin 12.0. Urinalysis done today is completely normal a nd urine cultures are pending. Blood cultures done on 04/06 x2, no growth seen. Family History: Noncontributory. Social History: The patient lives with family. She was fully independent as noted. No alcohol, tob acco, or IV drug use. Review of Systems: Again, some abdominal discomfort from constipation. She has right tibial plateau fracture with some lwfg-ol-rsvjzukh pain in the right knee. She is nonweightbearing there. Otherwise, no psychiatric c omplaints. No active genitourinary complaints. No dermatological complaints. No other complaints. Current Level Of Functioning: Currently, she is at supervision for eating and oral hygiene. For makeda leting, showering at moderate assistance. Upper body dressing, contact guard assistance. Lower body dressing, moderate assistance. Donning and doffing footwear, she is at moderate assistance level. Rolling left to right, sit to lying, supervision to contact guard. For lying to sitting on side of b ed, supervision to contact guard. Sit to stand, moderate assistance. Transfer from bed to chair and back, moderate assistance. Toilet transfer, moderate assistance. She has not ambulated. Wheelchai r mobilization, 75 feet with supervision. Physical Examination: Vital Signs: Blood pressure 145/67, pulse 66, respiratory rate 16, temperature 98.6, oxygen saturati on 96%. General: Ms. Tucker is resting in bed. She did some therapy sessions earlier HEENT: She is normocephalic, atraumatic. Sclerae anicteric. Abdomen: Soft. Extremities: Show no significant edema or cyanosis. In terms of her examination, she has diffusely weak upper and lower extremities, more proximally than distally. She has stocking-glove loss, depres sed reflexes. Rehab And Medical Assessment And Plan: Ms. Tucker is an 83-year-old patient in the rehabilitation unit with impairment category 20, miscellaneous. Her impairment group code is debility, noncardiac, nonpu lmonary. Etiologic diagnosis, bowel obstruction. Her comorbidities are anemia, decreased mobility, decreased physical functioning, hypertension, hyperkalemia, hyponatremia, and right tibial plateau fr acture. Plan: 1.She will have physical and occupational therapy 3 hours a day, 5 of 7 days. 2.We will continue the Tylenol and Dazey for pain in the tibia plateau fracture on the right. Trama dol will be added as well. Will use Eliquis 2.5 mg twice daily for DVT prophylaxis, amiodarone 100 m g daily for heart rate, blood pressure control. Rocephin and Flagyl for systemic infection, managed by Dr. Dowd, her primary care physician. Zofran for nausea and Protonix for reflux. Comorbidities That Are Impacting Rehabilitation: She is on multiple antibiotics at this point and is receiving IV antibiotics. Her schedule of therapy will be worked around the antibiotics. Blood wor k currently is good. She has hyponatremia and sodium may be adjusted with sodium supplements. She i s malnourished with low prealbumin and low albumin, protein supplementation added on board. We will work on improving bowel movements. Stool softeners, laxatives, hydration, mobilization will be emplo yed. Of course, her tibial plateau fracture and nonweightbearing status of right lower extremity suma l limit somewhat her ability to ambulate, but she can mobilize very well with a wheelchair. We will work on her transfers while nonweightbearing with right lower extremity. Rehab Specific Plan: Ms. Tucker will have physical and occupational therapy for 3 hours a day, 5 of 7 d ays to improve her ability to transfer from bed to chair into a wheelchair, onto a walker for transfe r. Sit to stand and mobilize without putting weight on the right lower extremity to go into the toil et and off, get into shower and out. She will work with occupational therapy for activities of daily living for dressing upper and lower body, donning and doffing footwear, and performing household act ivities, as she was independent. If need be, speech therapy will be employed to ensure safety awaren ess and managing medications, physician followup, and to continue to communicate with nursing and the rapists even after discharge from hospital. Ms. Tucker has a good understanding of the process of admission to the inpatient rehabilitation unit and how she will benefit from physical, occupational and if need be speech therapy. She will have 24 ho urs a day, 7 days a week skilled rehabilitation nursing, daily physician evaluation and management, a sd licensed social worker evaluation and management for her discharge planning, home equipment, and continua tion of therapy along with all physician followup. If need be, additional help will be sought from [facility] orthopedic service. She already is going to be seen by Dr. Dowd, her primary care physician, ngoc ayala. Barriers To Discharge: Currently on multiple antibiotics. If she is to be discharged home, then suma mehta need to complete those antibiotics and potentially discharge her on oral antibiotics. Otherwise, matt banuelos also has fall risk. Fall precautions to be adhered to at all times and she is again nonweightbear ing to right lower extremity and make it difficult to return home without a lot of help. Length Of Stay: About 14 days. Disposition: Expected to be home with family and continued therapy via home health. Prognosis: Good. Code Status: Full code. Rehab Specific Goals: 1.Become independent with upper and lower body dressing and donning and doffing of footwear. 2.Independently transfer from bed to chair to toilet to shower. 3.Independently mobilize a wheelchair 250 feet. 4.Independently perform [id number]-hfjzy. 5.Work on going up and down at least 5 steps with bilateral handrails. 6.Independently perform cognitive functioning. The above goals were reviewed with Ms. Tucker and she is in agreement. By signing this document, I acknowledge I personally performed a full physical examination on Ms. Tucker no later than 24 hours after her admission to the inpatient rehabilitation facility and determined t hat she is able to tolerate the above course of treatment at an intensive level for a reasonable toan od of time. A detailed individualized plan of care for her will be completed by hospital day 4 based on the preadmission screen, history and physical and therapy evaluations. NELI Voice ID: [id number]
--- NOTE | 2024-05-13 13:23 | PN ---
Date of Progress Note: 05/13/2024 Subjective: The patient was seen this morning for followup. No new complaints, problems reported by her. She was sitting. Denied any abdominal pain. No nausea, vomiting. No constipation and has be en having bowel movement every day. The patient is complaining of some leg swelling, has slight gem a in both lower extremities and she is also complaining of having to urinate very frequently, especia lly at nighttime and not getting much rest and is requesting IV fluid to be discontinued for that jonathon son. Her appetite has gotten better. Objective: Vital Signs: Reviewed. HEENT: Unremarkable. Lungs: Clear to auscultation. Heart: Sounds normal. Abdomen: Soft. Bowel sounds normal. No guarding, rigidity, tenderness, distention. Extremities: Bilateral trace leg edema, a little more on the right leg than the left leg. Impression: 1.Leg edema. 2.Malnutrition, severe. 3.Colitis. 4.Bowel obstruction. 5.Hyponatremia. 6.Anemia. Plan: We will go ahead and discontinue IV fluid. The patient's albumin level was very low and she w as made aware of that and this is likely reason along with IV fluid to cause some leg swelling, so we will go ahead and discontinue IV fluid now. She is eating and drinking well and no need for any lynette oing IV fluid hydration. I have encouraged her to concentrate and increase her protein intake and I have also ordered Ensure high protein drink for her as nutritional supplement. She is currently on c eftriaxone and metronidazole which we will probably discontinue tomorrow. Continue other current med ical management. Continue physical therapy under guidance of Dr. Abel and I will see her tomorrow for followup. ROSELINE/MODL Voice ID: [id number] Report ID: [id number]
[2024-05-13] MEDS: ENSURE HIGH PROTEIN 237 ML CAN PO SCH (15:25)
--- NOTE | 2024-05-13 15:52 | RAD REPORT ---
EXAMINATION: US bilateral LOWER EXTREMITY VENOUS DOPPLER CLINICAL INDICATION: Leg swelling TECHNIQUE: Sonographic evaluation of the veins of the lower extremity bilaterally formed.Grayscale, c olor and spectral analysis performed on all vessels COMPARISON: No prior exam. FINDINGS: The common femoral, superficial femoral, greater saphenous, popliteal and posterior tibial veins bila terally are compressible and demonstrate augmentation. Doppler demonstrates good flow. IMPRESSION: No evidence of deep venous thrombosis involving either lower extremity
[2024-05-14] MEDS: FUROSEMIDE 20 MG TABLET PO ONE (10:21)
--- NOTE | 2024-05-14 12:13 | PN ---
Date of Progress Note: 05/14/2024 Subjective: The patient was seen this morning for followup. No new complaints or problems reported by the patient. Sitting in chair with her leg elevated because of her leg swelling. Denies any shor tness of breath, paroxysmal nocturnal dyspnea, or orthopnea. Objective: Vital Signs: Reviewed. HEENT: Unremarkable. Lungs: Clear to auscultation. Heart: Sounds normal. Abdomen: Soft. Bowel sounds normal. No guarding, rigidity, tenderness, distention. Extremities: Bilateral grade 1 edema, unchanged from yesterday. Impression: 1.Leg edema. 2.Severe malnutrition. 3.Hypertension. 4.Chronic anticoagulation therapy. 5.Colitis. Plan: The patient has received adequate number of days of IV antibiotic, so we will discontinue her ceftriaxone as well as metronidazole. Continue current Eliquis 2.5 mg 2 times a day. Venous Doppler of both lower extremity was done yesterday, which came back negative for DVT. We will go ahead and give her dose of Lasix 20 mg p.o. x1 dose and we will visit her tomorrow morning for followup. Edmund vizcaino physical therapy under guidance of Dr. Abel. ROSELINE/MODL Voice ID: [id number] Report ID: [id number]
[2024-05-15 20:41] VITALS: TEMP 98.1
--- NOTE | 2024-05-16 01:17 | PN ---
Date of Progress Note: 05/15/2024 Time Of Service: 1:20 p.m. Subjective: Ms. Tucker is doing very well. She is happy with her therapy so far and actually will be r esther for discharge tomorrow. Objective: No fevers, chills, nausea, vomiting. No myalgias, arthralgias. Had good bowel movements . No other positives on the systems review. Physical Examination: Vital Signs: Blood pressure 155/60, pulse 71, respiratory rate 17, temperature 98.2, oxygen saturati on 95%. General: Ms. Tucker is resting well. She is in no acute distress. HEENT: Normocephalic, atraumatic. Sclerae anicteric. Oropharynx moist. Neck: Supple. Chest: Clear. Heart: Regular. Laboratory Studies: White blood cell count is 8.9, hemoglobin 9.5, platelets of 307. Sodium 131, po tassium 4.0, chloride 101, carbon dioxide 27, BUN 5, creatinine 0.65, glucose 115. Calcium 7.9, magn esium 1.7, albumin 1.9. Prealbumin 12.0. Urinalysis is completely normal. X-ray/imaging: She had a venous Doppler study done on 05/13. This study showed no deep vein thrombo sis in either lower extremity. Progress Made With Physical And Occupational Therapy: Today, with physical therapy, she completed wh eelchair mobilization 250 feet independently. Multiple trials of bed mobilization independently done . Car transfer done independently with stand pivot technique. She mobilized wheelchair independentl y 425 feet. With her occupational therapy, practiced unloading and loading containers and bags and/o r head cabinet to practice kitchen activity, did very well. She was independent with that. Independ ent with wheelchair to edge of bed transfer, supine transfer, all independent. Assessment: Ms. Tucker is an -cwka-bkm patient who is doing excellent. She is independent wi th all activities of daily living, ready for discharge home. Bowels are doing well. She is managed by Dr. Dowd, her primary care physician. She did have comorbid decreased mobility and decreased phys ical functioning, which is improving very well. In addition, she has a tibial plateau fracture on th e right. She is nonweightbearing there. Chronic obstructive pulmonary disease. She has atrial fibr illation, hypertension, dyslipidemia. Plan: She will continue for now with physical and occupational therapy until discharge. Continue wi th comorbid condition medications, which are managed by Dr. Dowd, her primary care physician and afte r discharge she will follow up with Dr. Dowd and continue therapy by Home Health. GABRIELA/HARRISON Voice ID: [id number] Report ID: [id number]
--- NOTE | 2024-05-16 01:17 | PN ---
Date of Progress Note: 05/15/2024 Subjective: The patient was seen this morning for followup. No new complaints or problems reported by the patient. She was lying in bed, not in any distress. This morning when I saw her, she was tel ling me that she really does not feel like she needs to be in the hospital on the rehab floor anymore and she feels a lot better and would like to go home and I have advised her to communicate this with Dr. Abel since she is on the rehab floor and her decision for discharge will be made depending o n the rehab decision and not medical decision. Objective: Vital Signs: Reviewed. HEENT: Unremarkable. Lungs: Clear to auscultation. Heart: Sounds normal. Abdomen: Soft, bowel sounds normal. No guarding, rigidity, tenderness, distention. Extremities: Significant improvement in her leg edema, very trace leg edema, compared to yesterday m uch better. Impression: 1.Hyponatremia. 2.Hypertension. 3.Chronic anticoagulation therapy. 4.Leg edema. Plan: We will go ahead and continue current Eliquis, continue current antihypertensive medication, a nd we will continue physical therapy under guidance of Dr. Abel. As per my discussion with the [facility] staff, Dr. Abel has given okay for her to go home tomorrow, so I will see her in the [facility] and then we will discharge her tomorrow. ROSELINE/MODL Voice ID: [id number] Report ID: [id number]
[2024-05-16] MEDS: PANTOPRAZOLE 40MG TABLET PO SCH (08:47)
[2024-05-16 11:07] VITALS: BP 142/68
--- NOTE | 2024-05-17 05:52 | DS ---
Date of Discharge: 05/16/2024 Disposition: Discharged to go home. Physical Examination: HEENT: Unremarkable. Lungs: Clear to auscultation. Heart: Sounds normal. Abdomen: Soft. Bowel sounds normal. No guarding, rigidity, tenderness, distention. Extremities: No leg edema. Laboratory Data: On 05/12/2024, WBC 8.9, hemoglobin 9.5, platelets 307. Sodium 131, potassium 4, ch loride 101, bicarb 27, BUN 5, creatinine 0.65, glucose 115, serum albumin 1.9. Discharge Medications And Instructions: 1.Continue all prior home medications except do not take any antibiotics that was prescribed to you during last hospital admission. 2.Follow up at my office next week. Final Diagnoses: 1.Bowel obstruction. 2.Colitis. 3.Hypokalemia. 4.Hyponatremia. 5.Anemia. 6.Hypertension. 7.Coronary artery disease. 8.Hyperlipidemia. 9.COPD. Hospital Course: This is an 83-year-old very pleasant female patient, who was admitted to rehab [facility] after her brief stay on the medical floor. She was admitted to medical floor with bowel obstructio n and colitis and with conservative treatment, her condition improved. The patient received physical therapy under guidance of Dr. Abel and she improved significantly. Her ability to transfer and ambulate has improved significantly. She has fracture of the right proximal tibia and for this, she has seen Dr. Pratt in [place] and he has advised her conservative treatment, use of knee brace on an as-needed basis for the patient and for the patient to avoid any weightbearing to the right leg f or total of 6 weeks. The patient will follow up with him on outpatient basis. The patient has been having regular bowel movement while she is on the rehab floor. Her abdominal pain complaint has comp letely resolved. She received IV ceftriaxone and metronidazole and both of these antibiotics were di scontinued about a day or 2 days ago after she received adequate number of days of antibiotic therapy . She did have some leg swelling and this leg swelling problem has resolved with couple of days of o ral diuretic therapy, which is furosemide 20 mg daily. The patient has severe malnutrition problem w ith albumin level of 1.9, and she was advised to increase her protein intake with high-protein diet a nd nutritional supplement like Ensure. Today, the patient was discharged to go home in stable condit ion with above-mentioned medication and instruction. Total time spent 35 minutes. ROSELINE/MODL Voice ID: [id number] Report ID: [id number]
== END 2024-05-16 11:00 | disposition home health service (06) | DRG 559 ==
LOC: 5TH 19:10
PROVIDERS: ADMIT Internal Medicine; ATTEND Internal Medicine
DX: S82.141D Displaced bicondylar fracture of right tibia, subsequent encounter for closed fracture with routine healing (principal); E43 Unspecified severe protein-calorie malnutrition; E87.1 Hypo-osmolality and hyponatremia; K56.609 Unspecified intestinal obstruction, unspecified as to partial versus complete obstruction; J44.9 Chronic obstructive pulmonary disease, unspecified; I48.91 Unspecified atrial fibrillation; I10 Essential (primary) hypertension; E78.5 Hyperlipidemia, unspecified; E87.6 Hypokalemia; D64.9 Anemia, unspecified; K52.9 Noninfective gastroenteritis and colitis, unspecified; R60.0 Localized edema; Z95.5 Presence of coronary angioplasty implant and graft; Z68.23 Body mass index [BMI] 23.0-23.9, adult; Z79.01 Long term (current) use of anticoagulants
CPT/HCPCS: 36415; 80048; 81001; 82040; 83735; 84134; 85025; 87086; 87088; 93970; 97110; 97112; 97116; 97163; 97165; 97530; 97542; J0696; J2470; J7799